=== PATIENT | female | born 1935 | race Two or more races ===

== ENCOUNTER 2017-09-06 13:21 | Inpatient (IN) | payer MEDICARE, OTHER ==
[~2017-09-06] VITALS: Ht 162.6 cm; Wt 60.8 kg
[2017-09-06 13:42] VITALS: BP 116/52
--- NOTE | 2017-09-06 13:57 | Emergency Room Report ---
History of Present Illness General Chief Complaint: Back Pain-No Injury Source: Patient, Family Member Present Illness HPI Patient is an 82-year-old female who presented after increased low back pain. Patient reports having increased back pain for approximately 3 days. The patient had gradual onset. She denies any recent trauma. Patient denies any fever. She reports urinating normally. Patient reports having normal bowel movements. She denies any dysuria or hematuria. She denies any weight loss. She had prior history of arthritis. Allergies: Coded Allergies: No Known Allergies (Verified Allergy, Unknown, 06/18/08) Patient History Past Medical History: see triage record Last Menstrual Period: na Reviewed Nursing Documentation: PMH: Agreed; PSxH: Agreed Nursing Documentation-PMH Past Medical History: No History, Except For Hx Cardiac Problems: Yes - atrial fibrillation Review of Systems All Other Systems: negative except mentioned in HPI Physical Exam Vital Signs Date Time Temp Pulse Resp B/P (MAP) Pulse Ox O2 Delivery O2 Flow Rate FiO2 09/06/17 13:24 98.4 47 18 112/61 98 Room Air 98.4 Sp02 EP Interpretation: reviewed, normal General Appearance: normal inspection, well appearing, no apparent distress, alert, GCS 15 Head: atraumatic ENT: normal ENT inspection, hearing grossly normal, normal voice Neck: normal inspection, full range of motion, supple, no bony tend Respiratory: normal inspection, lungs clear, normal breath sounds, no respiratory distress, no retraction, no wheezing Cardiovascular #1: regular rate, rhythm, no edema Gastrointestinal: normal inspection, normal bowel sounds, non tender, soft, no guarding, no hernia Genitourinary: no CVA tenderness Musculoskeletal: normal inspection, normal range of motion, other - limited ROM Neurologic: normal inspection, alert, oriented x3, responsive, lumber tailer III-XII nml as tested, speech normal Psychiatric: normal inspection, judgement/insight normal, mood/affect normal Skin: normal inspection, normal color, no rash Medical Decision Making Diagnostic Impression: Primary Impression: Atrial fibrillation with rapid ventricular response Additional Impression: T12 compression fracture ER Course Patient presented for back pain. Differential diagnosis included but was not limited to herniated disc, cauda equina syndrome, abdominal aortic aneurysm, perforated ulcer, spinal epidural abscess, spinal stenosis, lumbar fracture, metastatic lesion, pyelonephritis Patient was noted to have evidence of a rapid heartbeat intermittently on cardiac monitoring. Patient states that she previously been taking sotalol for arrhythmia but had her dosage decreased. Dr. Mckee was contacted for inpatient management due to need for inpatient monitoring and treatment. Labs Test 09/06/17 14:00 White Blood Count 6.6 K/UL (4.8-10.8) Red Blood Count 4.69 M/UL (4.20-5.40) Hemoglobin 14.7 G/DL (12.0-16.0) Hematocrit 43.1 % (37.0-47.0) Mean Corpuscular Volume 92 FL (80-99) Mean Corpuscular Hemoglobin 31.4 PG (27.0-31.0) Mean Corpuscular Hemoglobin Concent 34.2 G/DL (32.0-36.0) Red Cell Distribution Width 14.7 % (11.6-14.8) Platelet Count 138 K/UL (150-450) Mean Platelet Volume 8.6 FL (6.5-10.1) Neutrophils (%) (Auto) 63.7 % (45.0-75.0) Lymphocytes (%) (Auto) 26.6 % (20.0-45.0) Monocytes (%) (Auto) 8.1 % (1.0-10.0) Eosinophils (%) (Auto) 1.0 % (0.0-3.0) Basophils (%) (Auto) 0.7 % (0.0-2.0) Urine Color Yellow Urine Appearance Clear Urine pH 5 (4.5-8.0) Urine Specific [place] 1.020 (1.005-1.035) Urine Protein 1+ (NEGATIVE) Urine Glucose (UA) Negative (NEGATIVE) Urine Ketones Negative (NEGATIVE) Urine Occult Blood 4+ (NEGATIVE) Urine Nitrite Negative (NEGATIVE) Urine Bilirubin 1+ (NEGATIVE) Urine Ictotest Negative Urine Urobilinogen 1 MG/DL (0.0-1.0) Urine Leukocyte Esterase 2+ (NEGATIVE) Urine RBC 5-10 /HPF (0 - 2) Urine WBC 2-4 /HPF (0 - 2) Urine Squamous Epithelial Cells Few /LPF (NONE/OCC) Urine Bacteria Few /HPF (NONE) Urine Mucus Few /LPF (NONE/OCC) Sodium Level 142 MMOL/L (136-145) Potassium Level 3.6 MMOL/L (3.5-5.1) Chloride Level 106 MMOL/L (98-107) Carbon Dioxide Level 27 MMOL/L (21-32) Anion Gap 9 mmol/L (5-15) Blood Urea Nitrogen 14 mg/dL (7-18) Creatinine 0.7 MG/DL (0.55-1.30) Estimat Glomerular Filtration Rate mL/min (>60) Glucose Level 144 MG/DL (74-106) Calcium Level 8.9 MG/DL (8.5-10.1) Total Bilirubin 0.9 MG/DL (0.2-1.0) Aspartate Amino Transf (AST/SGOT) 30 U/L (15-37) Alanine Aminotransferase (ALT/SGPT) 13 U/L (12-78) Alkaline Phosphatase 81 U/L (46-116) Troponin I 0.041 ng/mL (0.000-0.056) Total Protein 6.9 G/DL (6.4-8.2) Albumin 3.4 G/DL (3.4-5.0) Globulin 3.5 g/dL Albumin/Globulin Ratio 1.0 (1.0-2.7) Lipase 145 U/L (73-393) EKG Diagnostic Results Rate: tachycardiac Rhythm: other - afib 137 Rhythm Strip Diag. Results EP Interpretation: yes Rhythm: no PVC's, no ectopy Last Vital Signs Date Time Temp Pulse Resp B/P (MAP) Pulse Ox O2 Delivery O2 Flow Rate FiO2 09/06/17 13:42 98.4 57 18 116/52 98 Room Air 98.4 Status: unchanged Disposition: ADMITTED INPATIENT Condition: Serious César Darden Sep 06, 2017 13:57
[2017-09-06] MEDS ORDERED: Morphine Sulfate 2mg/ml Inj IVP ONE (14:00)
[2017-09-06 14:28] LABS: APPEARANCE,URINE CLEAR; BASOPHILS % (AUTO) 0.7 % (0.0-2.0); BILIRUBIN, URINE 1+ (NEGATIVE); COLOR,URINE YELLOW; GLUCOSE, URINE (UA) NEGATIVE (NEGATIVE); HEMATOCRIT 43.1 % (37.0-47.0); HEMOGLOBIN 14.7 G/DL (12.0-16.0); KETONES,URINE NEGATIVE (NEGATIVE); LEUKOCYTE ESTERASE ,URINE 2+ (NEGATIVE); LYMPHOCYTES % (AUTO) 26.6 % (20.0-45.0); MEAN CORPUSCULAR VOLUME 92 FL (80-99); MONOCYTES % (AUTO) 8.1 % (1.0-10.0); NEUTROPHILS % (AUTO) 63.7 % (45.0-75.0); NITRITE,URINE NEGATIVE (NEGATIVE); PH,URINE 5 (4.5-8.0); PLATELET COUNT 138 K/UL (150-450); PROTEIN,URINE 1+ (NEGATIVE); RED BLOOD COUNT 4.69 M/UL (4.20-5.40); RED CELL DISTRIBUTION WIDTH 14.7 % (11.6-14.8); UROBILINOGEN,URINE 1 MG/DL (0.0-1.0); WHITE BLOOD COUNT 6.6 K/UL (4.8-10.8)
[2017-09-06] MEDS ORDERED: LORAZEPAM1 MG ORAL (14:32)
[2017-09-06] MEDS ORDERED: WARFARIN SODIUM5 MG ORAL (14:32)
[2017-09-06] MEDS ORDERED: ZOLPIDEM TARTRA10 MG ORAL (14:32)
[2017-09-06] MEDS ORDERED: PROTONIX40 MG ORAL (14:32)
[2017-09-06 15:03] LABS: ANION GAP 9 mmol/L (5-15); BLOOD UREA NITROGEN 14 mg/dL (7-18); CALCIUM 8.9 MG/DL (8.5-10.1); CARBON DIOXIDE 27 MMOL/L (21-32); CHLORIDE 106 MMOL/L (98-107); CREATININE 0.7 MG/DL (0.55-1.30); POTASSIUM 3.6 MMOL/L (3.5-5.1); SODIUM 142 MMOL/L (136-145)
[2017-09-06 15:07] LABS: ALANINE AMINOTRANSFERASE 13 U/L (12-78); ALBUMIN 3.4 G/DL (3.4-5.0); ALKALINE PHOSPHATASE 81 U/L (46-116); ASPARTATE AMINO TRANSFERASE 30 U/L (15-37); BILIRUBIN,TOTAL 0.9 MG/DL (0.2-1.0)
[2017-09-06] MEDS ORDERED: Ketorolac 30mg Inj IV ONE (15:15)
[2017-09-06 15:36] VITALS: BP 127/52
--- NOTE | 2017-09-06 15:41 | Diagnostic Imaging Report ---
Indications: Increased low back pain for approximately 3 days, gradual onset Technique: Spiral acquisitions obtained through the lumbar spine. Multiplanar reconstructions were generated. No IV contrast utilized. Total dose length product 368.23 mGycm. CTDIvol(s) 13.26 mGy. Dose reduction achieved using automated exposure control Comparison: none Findings: There is a superior endplate and slight upper anterior wall compression fracture deformity of the T12 vertebral body. No definite paraspinous abnormality this level. The remaining vertebral body heights are preserved. No other evidence of fracture. No dislocations. There is grade 1 spondylolisthesis of L5 on S1. However, no pars defect demonstrated, so this is probably due to rather profound facet arthrosis that is noted at this level.. The disc spaces are preserved. Bone on bone apposition of the L3, L4, and L5 spinous process is demonstrated. At L4-5, there is mild generalized circumferential annular bulge. This does not significantly compromise the spinal canal or the neural foramina. At the other levels, no significant disc bulge or protrusion, spinal stenosis, or neural foraminal narrowing. The included extra spinal soft tissues are remarkable for the presence of a large left renal cyst, measuring at least 6 cm in diameter, incompletely visualized. Impression: Positive for T12 superior endplate and slight anterior wall compression fracture deformity. Age indeterminate. 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
[2017-09-06] MEDS ORDERED: Metoprolol 5mg/5ml Inj IVP ONE ×2 (16:00→19:00)
[2017-09-06] MEDS ORDERED: SOTALOL80 M1 ORAL (16:20)
[2017-09-06 16:39] VITALS: BP 120/92
[2017-09-06 19:08] VITALS: BP 104/72
[2017-09-06 20:24] VITALS: BP 107/60
--- NOTE | 2017-09-06 20:25 | Cardiology Progress Note ---
Assessment/Plan Assessment/Plan The patient is seen and examined, full consult note is dictated. Objective Last 24 Hour Vital Signs Date Time Temp Pulse Resp B/P (MAP) Pulse Ox O2 Delivery O2 Flow Rate FiO2 09/06/17 19:13 132 104/72 09/06/17 19:08 98.4 132 17 104/72 98 Room Air 98.4 09/06/17 16:39 98.4 107 17 120/92 98 Room Air 98.4 09/06/17 16:38 98.4 09/06/17 16:03 127 127/52 09/06/17 15:36 98.4 127 23 127/52 98 Room Air 98.4 09/06/17 15:12 98.4 09/06/17 14:54 98.4 09/06/17 14:15 98.4 09/06/17 13:42 98.4 57 18 116/52 98 Room Air 98.4 09/06/17 13:24 98.4 47 18 112/61 98 Room Air 98.4 Laboratory Tests Test 09/06/17 14:00 White Blood Count 6.6 K/UL (4.8-10.8) Red Blood Count 4.69 M/UL (4.20-5.40) Hemoglobin 14.7 G/DL (12.0-16.0) Hematocrit 43.1 % (37.0-47.0) Mean Corpuscular Volume 92 FL (80-99) Mean Corpuscular Hemoglobin 31.4 PG (27.0-31.0) H Mean Corpuscular Hemoglobin Concent 34.2 G/DL (32.0-36.0) Red Cell Distribution Width 14.7 % (11.6-14.8) Platelet Count 138 K/UL (150-450) L Mean Platelet Volume 8.6 FL (6.5-10.1) Neutrophils (%) (Auto) 63.7 % (45.0-75.0) Lymphocytes (%) (Auto) 26.6 % (20.0-45.0) Monocytes (%) (Auto) 8.1 % (1.0-10.0) Eosinophils (%) (Auto) 1.0 % (0.0-3.0) Basophils (%) (Auto) 0.7 % (0.0-2.0) Urine Color Yellow Urine Appearance Clear Urine pH 5 (4.5-8.0) Urine Specific [place] 1.020 (1.005-1.035) Urine Protein 1+ (NEGATIVE) H Urine Glucose (UA) Negative (NEGATIVE) Urine Ketones Negative (NEGATIVE) Urine Occult Blood 4+ (NEGATIVE) H Urine Nitrite Negative (NEGATIVE) Urine Bilirubin 1+ (NEGATIVE) H Urine Ictotest Negative Urine Urobilinogen 1 MG/DL (0.0-1.0) H Urine Leukocyte Esterase 2+ (NEGATIVE) H Urine RBC 5-10 /HPF (0 - 2) H Urine WBC 2-4 /HPF (0 - 2) Urine Squamous Epithelial Cells Few /LPF (NONE/OCC) Urine Bacteria Few /HPF (NONE) Urine Mucus Few /LPF (NONE/OCC) H Sodium Level 142 MMOL/L (136-145) Potassium Level 3.6 MMOL/L (3.5-5.1) Chloride Level 106 MMOL/L (98-107) Carbon Dioxide Level 27 MMOL/L (21-32) Anion Gap 9 mmol/L (5-15) Blood Urea Nitrogen 14 mg/dL (7-18) Creatinine 0.7 MG/DL (0.55-1.30) Estimat Glomerular Filtration Rate mL/min (>60) Glucose Level 144 MG/DL (74-106) H Calcium Level 8.9 MG/DL (8.5-10.1) Total Bilirubin 0.9 MG/DL (0.2-1.0) Aspartate Amino Transf (AST/SGOT) 30 U/L (15-37) Alanine Aminotransferase (ALT/SGPT) 13 U/L (12-78) Alkaline Phosphatase 81 U/L (46-116) Troponin I 0.041 ng/mL (0.000-0.056) Total Protein 6.9 G/DL (6.4-8.2) Albumin 3.4 G/DL (3.4-5.0) Globulin 3.5 g/dL Albumin/Globulin Ratio 1.0 (1.0-2.7) Lipase 145 U/L (73-393) BRENDEN JARAMILLO Sep 06, 2017 20:25
[2017-09-06 20:30] VITALS: BP 111/67
[2017-09-06] MEDS ORDERED: VITAMIN D400 INTLU ORAL (20:41)
[2017-09-06] MEDS ORDERED: Morphine Sulfate 2mg/ml Inj IVP PRN (21:15)
[2017-09-06] MEDS ORDERED: D5W IV SCH (22:30)
[2017-09-06] MEDS ORDERED: AMIODARONE IV SCH (22:30)
[2017-09-06] MEDS: Metoprolol 25mg tab ORAL SCH (22:36)
[2017-09-07] VITALS: BP 102/55
[2017-09-07 04:00] VITALS: BP 105/48
[2017-09-07 07:08] LABS: EOSINOPHILS % (AUTO) 1.3 % (0.0-3.0); HEMATOCRIT 41.5 % (37.0-47.0); HEMOGLOBIN 14.3 G/DL (12.0-16.0); LYMPHOCYTES % (AUTO) 24.7 % (20.0-45.0); MEAN CORPUSCULAR VOLUME 93 FL (80-99); PLATELET COUNT 122 K/UL (150-450); RED BLOOD COUNT 4.46 M/UL (4.20-5.40); RED CELL DISTRIBUTION WIDTH 14.7 % (11.6-14.8); WHITE BLOOD COUNT 6.3 K/UL (4.8-10.8)
[2017-09-07 07:25] LABS: ALANINE AMINOTRANSFERASE 16 U/L (12-78); ALBUMIN/GLOBULIN RATIO 0.9 (1.0-2.7); ALKALINE PHOSPHATASE 74 U/L (46-116); ANION GAP 7 mmol/L (5-15); ASPARTATE AMINO TRANSFERASE 29 U/L (15-37); BILIRUBIN,TOTAL 0.9 MG/DL (0.2-1.0); BLOOD UREA NITROGEN 20 mg/dL (7-18); CALCIUM 8.7 MG/DL (8.5-10.1); CARBON DIOXIDE 29 MMOL/L (21-32); CHLORIDE 107 MMOL/L (98-107); CHOLESTEROL 157 MG/DL (< 200); CREATININE 0.8 MG/DL (0.55-1.30); HDL CHOLESTEROL 48 MG/DL (40-60); POTASSIUM 4.2 MMOL/L (3.5-5.1); SODIUM 142 MMOL/L (136-145); TRIGLYCERIDES 66 MG/DL (30-150)
[2017-09-07 07:28] LABS: INR 1.3 (0.9-1.1)
[2017-09-07 08:00] VITALS: BP 122/47
--- NOTE | 2017-09-07 08:52 | History & Physical ---
History and Physical History & Physicial seen and examined. dictation completed Roderick Mckee MD Sep 07, 2017 08:52
--- NOTE | 2017-09-07 08:54 | General Progress Note ---
Assessment/Plan Status: stable Assessment/Plan 1- T-Spine compression deformity fx 2- pain management 3- abn BNP 4- Afib Plan: T-Spine MRI echo [place] PRN Subjective ROS Limited/Unobtainable: No Constitutional: Reports: other - painful back Allergies: Coded Allergies: No Known Allergies (Verified Allergy, Unknown, 06/18/08) Objective Last 24 Hour Vital Signs Date Time Temp Pulse Resp B/P (MAP) Pulse Ox O2 Delivery O2 Flow Rate FiO2 09/07/17 04:00 65 09/07/17 04:00 98.1 58 20 105/48 94 Room Air 98.1 09/07/17 00:00 57 09/07/17 00:00 97.7 60 20 102/55 95 Room Air 97.7 09/06/17 22:36 62 112/52 09/06/17 22:29 63 09/06/17 20:34 133 09/06/17 20:30 98.0 111 20 111/67 94 Room Air 98.0 09/06/17 20:24 98.4 133 17 107/60 98 Room Air 98.4 09/06/17 20:15 98.4 132 17 104/72 98 Room Air 98.4 09/06/17 19:13 132 104/72 09/06/17 19:08 98.4 132 17 104/72 98 Room Air 98.4 09/06/17 16:39 98.4 107 17 120/92 98 Room Air 98.4 09/06/17 16:38 98.4 09/06/17 16:03 127 127/52 09/06/17 15:36 98.4 127 23 127/52 98 Room Air 98.4 09/06/17 15:12 98.4 09/06/17 14:54 98.4 09/06/17 14:15 98.4 09/06/17 13:42 98.4 57 18 116/52 98 Room Air 98.4 09/06/17 13:24 98.4 47 18 112/61 98 Room Air 98.4 Laboratory Tests 09/06/17 14:00: White Blood Count 6.6, Red Blood Count 4.69, Hemoglobin 14.7, Hematocrit 43.1, Mean Corpuscular Volume 92, Mean Corpuscular Hemoglobin 31.4H, Mean Corpuscular Hemoglobin Concent 34.2, Red Cell Distribution Width 14.7, Platelet Count 138L, Mean Platelet Volume 8.6, Neutrophils (%) (Auto) 63.7, Lymphocytes (%) (Auto) 26.6, Monocytes (%) (Auto) 8.1, Eosinophils (%) (Auto) 1.0, Basophils (%) (Auto ) 0.7, Urine Color Yellow, Urine Appearance Clear, Urine pH 5, Urine Specific [place] 1.020, Urine Protein 1+H, Urine Glucose (UA) Negative, Urine Ketones Negative, Urine Occult Blood 4+H, Urine Nitrite Negative, Urine Bilirubin 1+H, Urine Ictotest Negative, Urine Urobilinogen 1H, Urine Leukocyte Esterase 2+H, Urine RBC 5-10H, Urine WBC 2-4, Urine Squamous Epithelial Cells Few, Urine Bacteria Few, Urine Mucus FewH, Sodium Level 142, Potassium Level 3.6, Chloride Level 106, Carbon Dioxide Level 27, Anion Gap 9, Blood Urea Nitrogen 14, Creatinine 0.7, Estimat Glomerular Filtration Rate , Glucose Level 144H, Calcium Level 8.9, Total Bilirubin 0.9, Aspartate Amino Transf (AST/SGOT) 30, Alanine Aminotransferase (ALT/SGPT) 13, Alkaline Phosphatase 81, Troponin I 0.041, Total Protein 6.9, Albumin 3.4, Globulin 3.5, Albumin/Globulin Ratio 1.0 , Lipase 145 09/06/17 22:00: Troponin I 0.049 09/07/17 06:30: White Blood Count 6.3, Red Blood Count 4.46, Hemoglobin 14.3, Hematocrit 41.5, Mean Corpuscular Volume 93, Mean Corpuscular Hemoglobin 32.1H, Mean Corpuscular Hemoglobin Concent 34.5, Red Cell Distribution Width 14.7, Platelet Count 122L, Mean Platelet Volume 8.3, Neutrophils (%) (Auto) 64.0, Lymphocytes (%) (Auto) 24.7, Monocytes (%) (Auto) 9.0, Eosinophils (%) (Auto) 1.3, Basophils (%) (Auto ) 1.0, Sodium Level 142, Potassium Level 4.2, Chloride Level 107, Carbon Dioxide Level 29, Anion Gap 7, Blood Urea Nitrogen 20H, Creatinine 0.8, Estimat Glomerular Filtration Rate , Glucose Level 96, Calcium Level 8.7, Total Bilirubin 0.9, Aspartate Amino Transf (AST/SGOT) 29, Alanine Aminotransferase ( ALT/SGPT) 16, Alkaline Phosphatase 74, Troponin I 0.041, Total Protein 6.5, Albumin 3.0L, Globulin 3.5, Albumin/Globulin Ratio 0.9L, Prothrombin Time 13.9H , Prothromb Time International Ratio 1.3H, Hemoglobin A1c 6.2H, Pro-B-Type Natriuretic Peptide 1566H, Triglycerides Level 66, Cholesterol Level 157, LDL Cholesterol 104H, HDL Cholesterol 48, Cholesterol/HDL Ratio 3.3, Thyroid Stimulating Hormone (TSH) 2.250 Height (Feet): 5 Height (Inches): 4.00 Weight (Pounds): 134 General Appearance: moderate distress EENT: PERRL/EOMI Neck: supple Cardiovascular: normal rate Respiratory/Chest: lungs clear Abdomen: soft Extremities: other - decreased ROM of spine secondary to pain 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
[2017-09-07] MEDS ORDERED: Morphine Sulfate 4mg/ml Inj IM PRN (09:00)
[2017-09-07] MEDS ORDERED: Morphine Sulfate 2mg/ml Inj IM PRN (09:00)
[2017-09-07] MEDS ORDERED: Morphine Sulfate 2mg/ml Inj IVP PRN (09:00)
[2017-09-07] MEDS: Metoprolol 25mg tab ORAL SCH ×2 (09:22→21:27)
[2017-09-07] MEDS: Dabigatran 150mg cap ORAL SCH ×2 (10:33→21:28)
[2017-09-07 12:00] VITALS: BP 105/50
[2017-09-07] MEDS: Amiodarone 200mg tab ORAL SCH ×2 (13:30→21:32)
[2017-09-07] MEDS: Norco 5mg/325mg tab ORAL PRN ×2 (13:47→21:31)
--- NOTE | 2017-09-07 15:59 | Cardiology Report ---
APPROVED REPORT EXAM: Two-dimensional and M-mode echocardiogram with Doppler and color Doppler. INDICATION Atrial Fibrillation M-Mode DIMENSIONS IVSd1.0 (0.7-1.1cm)Left Atrium (MM)3.8 (1.6-4.0cm) LVDd4.7 (3.5-5.6cm)Aortic Root3.4 (2.0-3.7cm) PWd1.1 (0.7-1.1cm)Aortic Cusp Exc.1.8 (1.5-2.0cm) LVDs2.8 (2.5-4.0cm) PWs1.9 cm Normal left ventricular chamber size, systolic function and wall motion. Left ventricular ejection fraction estimated to be 60-65%. No evidence of left ventricular hypertrophy. No evidence of pericardial effusion. Mild left atrial enlargement. Right cardiac chamber sizes are within normal limits. Mild focal aortic valve sclerosis with adequate cusp excursion. Mildly thickened mitral valve leaflets with normal excursion. Mild mitral annulus and aortic root calcification. Normal pulmonic valve structure. Normal tricuspid valve structure. IVC at normal size and collapsing with respiration. A color flow and spectral Doppler study was performed and revealed: Trace aortic insufficiency. Mild mitral regurgitation. Can not determine left ventricular diastolic function by mitral diastolic velocities due to atrial fibrillation. Mild tricuspid regurgitation. Tricuspid systolic velocities suggests peak right ventricular systolic pressure of 40 mmHg, consistent with mild pulmonary hypertension. Mild pulmonic regurgitation present.
[2017-09-07 16:00] VITALS: BP 120/64
--- NOTE | 2017-09-07 16:11 | Cardiology Report ---
APPROVED REPORT EKG Measurement Heart [id number] AAnnette Monk with rapid ventricular response. Low voltage QRS Abnormal ECG
--- NOTE | 2017-09-07 16:59 | Diagnostic Imaging Report ---
Indication: Back pain Technique: Sagittal T1 fast spin echo, sagittal T2 FRFSE, sagittal STIR, axial T2 FRFSE, axial T1, pre and postcontrast axial and sagittal T1 fat saturated images of the thoracic spine Comparison: Reference made to lumbar spine CT dated 09/06/2017 Findings: The T10 vertebral body demonstrates very slight loss of height anterior plate, and slight buckling of the anterior cortex. It demonstrates superior marrow edema on the T1 and STIR images. It also demonstrates enhancement of the upper portion of the vertebral body in the same distribution on the postcontrast images. Abnormal marrow signal and enhancement extends slightly into the left pedicle but not into the right pedicle. The posterior wall appears to be intact without evidence of significant retropulsion. There is some edema and enhancement of the paraspinous soft tissues anterior and lateral to the vertebral body. There is no epidural abnormality demonstrated at this level, and no epidural enhancement. No significant disc bulge or protrusion or spinal stenosis. Focal very mild thickening of the ligamentum flavum on the left posterior to T9 is noted, but this does not in any way compromise the spinal canal. There is slight increased T2 signal within the T9-T10 disc, but no significant disc enhancement is evident. Very slight anterior height loss and buckling of the superior endplate of the T12 vertebral body is demonstrated, corresponding to the compression fracture deformity described on recent MRI. However, no abnormal marrow signal or unusual contrast enhancement is demonstrated, indicating that this is not an acute fracture. The remaining vertebral body heights are preserved. The remainder of the vertebral body marrow signal is normal. The intrinsic cord signal is normal. The disc spaces are preserved. No significant disc bulge or protrusion, spinal stenosis, or neural foraminal stenosis. Impression: Positive for acute T10 compression fracture, primarily involving the superior endplate with slight anterior wall deformity. No evidence of retropulsion or resultant neural impingement T12 compression fracture deformity, old, no evidence of marrow edema. This corresponds to the abnormality described on recent CT scan No evidence of spondylodiscitis, epidural abscess, or other acute infectious abnormality. No evidence of significant neural impingement Findings discussed by phone with Dr. Mckee at the time of interpretation
[2017-09-07] MEDS ORDERED: Warfarin Sodium 5mg ORAL SCH (17:00)
--- NOTE | 2017-09-07 17:00 | History and Physical Report ---
DATE OF ADMISSION: 09/06/2017 SOURCE OF INFORMATION: Patient and EMR. HISTORY OF PRESENT ILLNESS: The patient is a pleasant 82-year-old female. She is complaining of the acute onset of the lower back pain for the last couple of days. The patient denies any sensory or motor problems in the lower extremities. The patient denies any loss of consciousness. No nausea. No vomitus. No diarrhea. No constipation. The patient's initial evaluation in the emergency room shows the vital signs were stable. The initial blood work are unremarkable. The initial CT scan of the spine shows compression deformity fractures of T12. At the time of evaluation, the patient complains of severe pain. The patient denies any problem with the bladder or bowel control. PAST SURGICAL HISTORY: Hysterectomy and appendectomy/cholecystectomy. MEDICATIONS: Current hospital medications including but not limited to, amiodarone, metoprolol 25 mg p.o. q.12 hours, and morphine sulfate. ALLERGIES: NKDA. FAMILY HISTORY: Reviewed and noncontributory. SOCIAL HISTORY: The patient lives by herself with the boyfriend. The patient denies any alcohol abuse, drinking, or illicit drug abuse. No children. PHYSICAL EXAMINATION: VITAL SIGNS: Blood pressure 110/80, temperature 98.2, pulse ox 98% on room air, and pulse rate 45 to 50. HEAD AND NECK: Atraumatic and normocephalic. CHEST: Clear to auscultation. No wheezing. No crackles. HEART: S1 and S2. Irregular rate and rhythm. Negative for S3. Negative for S4. ABDOMEN: Soft. No organomegaly. No tenderness. NEUROLOGIC: The patient is awake, alert, and oriented x3. No cranial nerve deficit. MUSCULOSKELETAL: Positive for decreased range of motion in the back secondary to pain. PSYCHIATRIC: Mood and affect are appropriate and normal. LABORATORY DATA: Labs dated 09/06/2017 shows sodium 142, potassium 3.6, BUN 14, and creatinine 0.7. WBC 6.6, hemoglobin of 14.7, and platelets of 138,000. Urinalysis shows 10 rbc's, 4+ occult blood, and 4+ protein. ASSESSMENT: 1. Acute onset of low back pain. 2. Compression deformity fractures of T12, age indeterminate with no neurologic compromise by CT scan images. 3. Minimal proteinuria. 4. Dysmetabolic syndrome. 5. Atrial fibrillation, controlled rate. 6. Gastrointestinal and deep vein thrombosis prophylaxis. PLAN OF CARE: I will obtain the MRI of the thoracic spine to rule out any possible neurologic compromise. Continue with pain management. We will check a 2D echo. Roderick Mckee M.D. DR: MOISES JOB#: [id number] CC:
--- NOTE | 2017-09-07 18:30 | Consultation ---
DATE OF CONSULTATION: 09/06/2017 CARDIOLOGY CONSULTATION CONSULTING PHYSICIAN: Haim Tobin M.D. REFERRING PHYSICIAN: Roderick Mckee M.D. REASON FOR CONSULTATION: Management of atrial fibrillation with rapid ventricular response. HISTORY OF PRESENT ILLNESS: The patient is a very unfortunate, 82-year-old, very delightful female, who presented to the hospital with increased low back pain. This has been going on for about three days. It was a gradual onset. In the emergency department, while being evaluated for low back pain etiology, she was found to be in atrial fibrillation with rapid ventricular response. Apparently, this is a paroxysmal atrial fibrillation. The patient has been on sotalol and warfarin. She states that she is managed by her primary care physician for paroxysmal atrial fibrillation. She was given a medication by a cruise coordinator one time, but she could not tolerate that. She denies any palpitation, however, complains of fatigue and weakness and tiredness. PAST MEDICAL HISTORY: Paroxysmal atrial fibrillation. PAST SURGICAL HISTORY: None. MEDICATIONS: List of medications at home including sotalol 80 mg p.o. daily, vitamin D3 400 units p.o. daily, and warfarin 5 mg p.o. daily. ALLERGIES: No known drug allergies. SOCIAL HISTORY: Denies any tobacco, alcohol, or illicit drug use. FAMILY HISTORY: No premature coronary artery disease in first-degree relatives. There is no arrhythmogenic in the first-degree relative either. REVIEW OF SYSTEMS: A 12-system review done essentially negative except what mentioned in the history of present illness. PHYSICAL EXAMINATION: GENERAL: The patient is a very pleasant, 82-year-old lady, in no apparent respiratory distress. Alert and oriented x4. VITAL SIGNS: Blood pressure at the time of arrival to the hospital was 112/61, respirations 18, heart rate was as high as 137, temperature 98.4 degrees Fahrenheit, and O2 saturation was 98% on room air. HEENT: Atraumatic and normocephalic. ENT, pupils are equal, round, and reactive to light and accommodation. Extraocular muscles intact. NECK: JVP less than 5 cm. No carotid bruit. Carotid upstroke is 2+ bilaterally. CARDIOVASCULAR: Normal S1 and S2. Irregularly irregular rhythm. No murmurs, gallops, or rubs. PMI is at fourth intercostal space in the midclavicular line. LUNGS: Clear to auscultation bilaterally. ABDOMEN: Soft, nontender, and nondistended. No hepatosplenomegaly. Positive bowel sounds. EXTREMITIES: No evidence of edema, clubbing, or cyanosis. LABORATORY FINDINGS: WBC 6.6, hemoglobin of 14.7, hematocrit of 43.1 and platelet count is 138. Sodium was 142, potassium is 3.6, chloride 106, bicarbonate 27, BUN of 14, creatinine 0.7, glucose is 144, and calcium is 8.9. Troponin I was 0.041. A 12-lead electrocardiogram showed atrial fibrillation with rapid ventricular response at a rate of 137. ASSESSMENT AND PLAN: The patient is a very unfortunate, 82-year-old female, seen in Cardiology consultation at request of Dr. Mckee. 1. Atrial fibrillation with rapid ventricular response, failed sotalol for maintaining the sinus rhythm, although she is on a relatively low dose of sotalol. I would like to start the patient on amiodarone 150 mg IV push over 15 minutes followed by amiodarone IV infusion at 1 mg/minute for 6 hours followed by 0.5 mg/minute for the rest of 18 hours. We will then switch to amiodarone 200 mg p.o. daily. In the meantime, we will discontinue metoprolol. The patient will ultimately benefit from novel oral anticoagulation therapy. I would like to obtain INR and PT to see the compliance with warfarin. 2. Low back pain. I would like to obtain 2D echocardiography for assessment of the left atrial size and LV function as well. I would like to thank Dr. Mckee for the courtesy of this consultation. Haim Tobin M.D. DR: ILANA JOB#: [id number] CC:
[2017-09-07 20:00] VITALS: BP 125/61
[2017-09-08] VITALS: BP 131/71
[2017-09-08 04:00] VITALS: BP 110/51
[2017-09-08] MEDS: Amiodarone 200mg tab ORAL SCH ×4 (06:00→22:08)
[2017-09-08 08:00] VITALS: BP 123/76
[2017-09-08 08:45] LABS: BASOPHILS % (AUTO) 1.7 % (0.0-2.0); EOSINOPHILS % (AUTO) 1.5 % (0.0-3.0); HEMATOCRIT 38.4 % (37.0-47.0); HEMOGLOBIN 13.3 G/DL (12.0-16.0); LYMPHOCYTES % (AUTO) 25.7 % (20.0-45.0); MEAN CORPUSCULAR VOLUME 92 FL (80-99); MONOCYTES % (AUTO) 7.8 % (1.0-10.0); NEUTROPHILS % (AUTO) 63.3 % (45.0-75.0); PLATELET COUNT 114 K/UL (150-450); RED BLOOD COUNT 4.15 M/UL (4.20-5.40); RED CELL DISTRIBUTION WIDTH 14.6 % (11.6-14.8); WHITE BLOOD COUNT 5.4 K/UL (4.8-10.8)
[2017-09-08 08:59] LABS: INR 1.5 (0.9-1.1)
[2017-09-08] MEDS ORDERED: Amiodarone 200mg tab ORAL SCH (09:00)
[2017-09-08] MEDS: Dabigatran 150mg cap ORAL SCH (09:03)
[2017-09-08 12:00] VITALS: BP 126/70
--- NOTE | 2017-09-08 13:02 | General Progress Note ---
Assessment/Plan Status: stable Assessment/Plan 1. Acute onset of low back pain. 2. Acute Compression deformity fractures of T10- No neurologic compromise by CT scan images. 3. Minimal proteinuria. 4. Dysmetabolic syndrome. 5. Atrial fibrillation, controlled rate. 6. Gastrointestinal and deep vein thrombosis prophylaxis. Plan: Kyphoplasty by IR on Tuesday Stop NOAC- Pradaxa- tomorrow Subjective ROS Limited/Unobtainable: No Constitutional: Reports: weakness HEENT: Reports: no symptoms Cardiovascular: Reports: no symptoms Respiratory: Reports: no symptoms Allergies: Coded Allergies: No Known Allergies (Verified Allergy, Unknown, 06/18/08) Objective Last 24 Hour Vital Signs Date Time Temp Pulse Resp B/P (MAP) Pulse Ox O2 Delivery O2 Flow Rate FiO2 09/08/17 08:00 97.2 56 18 123/76 94 Room Air 97.2 09/08/17 08:00 65 09/08/17 04:00 97.0 59 20 110/51 96 Room Air 97.0 09/08/17 04:00 53 09/08/17 00:00 60 09/08/17 00:00 97.3 63 20 131/71 96 Room Air 97.3 09/07/17 21:27 65 124/62 09/07/17 20:00 77 09/07/17 20:00 97.2 60 20 125/61 95 Room Air 97.2 09/07/17 16:00 97.2 60 18 120/64 95 Room Air 97.2 09/07/17 16:00 62 09/07/17 14:45 97.0 09/07/17 13:47 97.0 Intake and Output 09/07/17 09/08/17 19:00 07:00 Intake Total 360 ml Balance 360 ml Intake Oral 360 ml # Voids 2 2 Laboratory Tests 09/07/17 15:55: Troponin I 0.042 09/08/17 07:30: White Blood Count 5.4, Red Blood Count 4.15L, Hemoglobin 13.3, Hematocrit 38.4, Mean Corpuscular Volume 92, Mean Corpuscular Hemoglobin 32.0H, Mean Corpuscular Hemoglobin Concent 34.7, Red Cell Distribution Width 14.6, Platelet Count 114L, Mean Platelet Volume 7.9, Neutrophils (%) (Auto) 63.3, Lymphocytes (%) (Auto) 25.7, Monocytes (%) (Auto) 7.8, Eosinophils (%) (Auto) 1.5, Basophils (%) (Auto ) 1.7, Prothrombin Time 15.6H, Prothromb Time International Ratio 1.5H, Activated Partial Thromboplast Time 51H Height (Feet): 5 Height (Inches): 4.00 Weight (Pounds): 134 General Appearance: no apparent distress EENT: PERRL/EOMI Neck: supple Cardiovascular: normal rate Respiratory/Chest: lungs clear Abdomen: soft Extremities: other - painful spine with activitiy 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
[2017-09-08] MEDS: Norco 5mg/325mg tab ORAL PRN ×2 (14:01→19:51)
[2017-09-08 16:00] VITALS: BP 143/87
--- NOTE | 2017-09-08 16:48 | General Progress Note ---
Progress Note Progress Note Patient is an 82-year-old female who reports recent history of onset low back pain, not precipitated by any trauma. Patient had similar prior episodes, but current episode much more severe. Patient reports pain as 10 out of 10, limits moving in bed. Patient is still able to ambulate. Patient describes pain as being central within the back, no radicular symptoms. Patient underwent lumbar spine CT scan on 09/06/2017 which demonstrate an age indeterminate T12 compression fracture. Patient underwent thoracic spine CT on , which demonstrated that the T12 compression fracture is old. However, an acute superior endplate compression fracture of T10 is noted on that study. On exam, patient does demonstrate point tenderness in the lower thoracic spine. Normal lower extremity motor and sensory noted Past medical history is remarkable for history of atrial fibrillation. Past surgical history is remarkable history of hysterectomy and appendectomy and cholecystectomy No known allergies Laboratory findings as follows: WBC 5.4, H/HH 13.3 and 38.4, platelet count 114 , prothrombin time 15.6, INR 1.5, PTT 51 Patient appears to be a good candidate for percutaneous kyphoplasty at the T10 level. The procedure was discussed with the patient's, as well as alternatives and benefits. Risks, including but not limited to hemorrhage, infection, nerve damage, spinal cord injury, anesthesia complications discussed with patient, all questions answered. She indicated willingness to proceed Patient is on Pradaxa. This should be discontinued for 3 to 5 days prior to the procedure. This was discussed by phone with Dr. Tobin. Patient will be scheduled for percutaneous kyphoplasty on Tuesday DAVID VILLARREAL M.D. Sep 08, 2017 16:48
[2017-09-08 20:00] VITALS: BP 136/76
--- NOTE | 2017-09-08 22:50 | Cardiology Progress Note ---
Assessment/Plan Assessment/Plan 1. Atrial fibrillation with rapid ventricular response, now in sinus rhythm, failed sotalol for maintaining the sinus rhythm, on PO loading dose of amiodarone until Tuesday, off Pradaxa in preparation for Kyphoplasty. Will then switch to amiodarone 200 mg p.o. daily on Tuesday. 2D echo reveals normal LV systolic function with LVEF at 60%. 2. Low back pain, awaiting kyphoplasty, should be off pradaxa for 3 days prior to the surgery. Subjective Subjective Sinus bradycardia at 59 with occasional VPCs. Objective Last 24 Hour Vital Signs Date Time Temp Pulse Resp B/P (MAP) Pulse Ox O2 Delivery O2 Flow Rate FiO2 09/08/17 20:00 68 09/08/17 20:00 98.2 53 20 136/76 97 Room Air 98.2 09/08/17 16:00 60 09/08/17 16:00 98.2 56 18 143/87 95 Room Air 98.2 09/08/17 12:00 97.5 55 18 126/70 95 Room Air 97.5 09/08/17 12:00 58 09/08/17 08:00 97.2 56 18 123/76 94 Room Air 97.2 09/08/17 08:00 65 09/08/17 04:00 97.0 59 20 110/51 96 Room Air 97.0 09/08/17 04:00 53 09/08/17 00:00 60 09/08/17 00:00 97.3 63 20 131/71 96 Room Air 97.3 Intake and Output 09/07/17 09/08/17 19:00 07:00 Intake Total 360 ml Balance 360 ml Intake Oral 360 ml # Voids 2 2 2D Echo: EF 60%, Mild LAE, Mild MR, Mild FL, RVSP 40 mmHg Laboratory Tests Test 09/08/17 07:30 White Blood Count 5.4 K/UL (4.8-10.8) Red Blood Count 4.15 M/UL (4.20-5.40) L Hemoglobin 13.3 G/DL (12.0-16.0) Hematocrit 38.4 % (37.0-47.0) Mean Corpuscular Volume 92 FL (80-99) Mean Corpuscular Hemoglobin 32.0 PG (27.0-31.0) H Mean Corpuscular Hemoglobin Concent 34.7 G/DL (32.0-36.0) Red Cell Distribution Width 14.6 % (11.6-14.8) Platelet Count 114 K/UL (150-450) L Mean Platelet Volume 7.9 FL (6.5-10.1) Neutrophils (%) (Auto) 63.3 % (45.0-75.0) Lymphocytes (%) (Auto) 25.7 % (20.0-45.0) Monocytes (%) (Auto) 7.8 % (1.0-10.0) Eosinophils (%) (Auto) 1.5 % (0.0-3.0) Basophils (%) (Auto) 1.7 % (0.0-2.0) Prothrombin Time 15.6 SEC (9.30-11.50) H Prothromb Time International Ratio 1.5 (0.9-1.1) H Activated Partial Thromboplast Time 51 SEC (23-33) H Objective HEENT: Atraumatic and normocephalic. ENT, pupils are equal, round, and reactive to light and accommodation. Extraocular muscles intact. NECK: JVP less than 5 cm. No carotid bruit. Carotid upstroke is 2+ bilaterally. CARDIOVASCULAR: Normal S1 and S2. Irregularly irregular rhythm. No murmurs, gallops, or rubs. PMI is at fourth intercostal space in the midclavicular line. LUNGS: Clear to auscultation bilaterally. ABDOMEN: Soft, nontender, and nondistended. No hepatosplenomegaly. Positive bowel sounds. EXTREMITIES: No evidence of edema, clubbing, or cyanosis. BRENDEN JARAMILLO Sep 08, 2017 22:50
[2017-09-09] VITALS: BP 117/54
[2017-09-09 04:00] VITALS: BP 124/87
[2017-09-09] MEDS: Amiodarone 200mg tab ORAL SCH ×3 (05:30→22:58)
[2017-09-09] MEDS ORDERED: Metoprolol 5mg/5ml Inj IVP SCH (07:30)
[2017-09-09 08:00] VITALS: BP 124/72
[2017-09-09] MEDS: Metoprolol 25mg tab ORAL SCH ×2 (09:12→20:39)
[2017-09-09] MEDS: Norco 5mg/325mg tab ORAL PRN ×2 (10:58→22:08)
[2017-09-09 12:00] VITALS: BP 99/63
[2017-09-09] MEDS: Bisacodyl EC 5mg tab ORAL PRN (13:42)
--- NOTE | 2017-09-09 15:47 | Internal Med Progress Note ---
Subjective Date of Service: Sep 09, 2017 Physician Name Scotty Monroy Attending Physician Roderick Mckee MD Current Medications Medications (Trade) Dose Ordered Sig/Radha Route PRN Reason Start Time Stop Time Status Last Admin Dose Admin Acetaminophen/ Hydrocodone Bitart (Walker 5/325) 1 tab Q4H PRN ORAL Moderate Pain (Pain Scale 4-6) 09/07/17 09:00 09/14/17 08:59 09/09/17 10:58 Amiodarone HCl (Cordarone) 400 mg EVERY 8 HOURS ORAL 09/07/17 14:00 09/10/17 06:01 09/09/17 13:42 Bisacodyl (Dulcolax) 5 mg DAILYPRN PRN ORAL Constipation 09/09/17 12:30 10/09/17 12:29 09/09/17 13:42 Docusate Sodium (Colace) 100 mg TWICE A DAY ORAL 09/09/17 18:00 10/09/17 17:59 Metoprolol Tartrate (Lopressor) 5 mg Q5MIN X 3 IVP 09/09/17 07:30 10/09/17 07:29 Metoprolol Tartrate (Lopressor) 25 mg Q12HR ORAL 09/09/17 09:00 10/09/17 08:59 09/09/17 09:12 Morphine Sulfate (Morphine Sulfate) 2 mg Q4H PRN IM Severe Pain (Pain Scale 7-10) 09/07/17 09:00 09/14/17 08:59 Ondansetron HCl (Zofran) 4 mg Q6H PRN IVP Nausea & Vomiting 09/06/17 22:30 10/06/17 22:29 Allergies: Coded Allergies: No Known Allergies (Verified Allergy, Unknown, 06/18/08) ROS Limited/Unobtainable: No Constitutional: Reports: no symptoms HEENT: Reports: no symptoms Cardiovascular: Reports: no symptoms Respiratory: Reports: no symptoms Gastrointestinal/Abdominal: Reports: no symptoms Genitourinary: Reports: no symptoms Neurologic/Psychiatric: Reports: no symptoms Subjective 82 YO F admitted with back pain. Now acute fracture thoracic 10 vertabra. Await Kyphoplasty T-10 on Tuesday09/12/17. Cover for Int Med-Dr Mckee Objective Last Vital Signs Date Time Temp Pulse Resp B/P (MAP) Pulse Ox O2 Delivery O2 Flow Rate FiO2 09/09/17 12:00 70 09/09/17 12:00 98.2 20 99/63 96 Room Air 98.2 General Appearance: WD/WN, no apparent distress, alert EENT: PERRL/EOMI, normal ENT inspection, TMs normal Neck: non-tender, normal alignment, supple Cardiovascular: normal peripheral pulses, normal rate, regular rhythm, no gallop/murmur, no JVD Respiratory/Chest: chest wall non-tender, lungs clear, normal breath sounds, no respiratory distress, no accessory muscle use Abdomen: normal bowel sounds, non tender, soft, no organomegaly, no mass Extremities: normal range of motion, non-tender 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 (2) HTN (hypertension) Assessment & Plan: Continue Metoprolol (3) T12 compression fracture (4) Atrial fibrillation with rapid ventricular response Assessment & Plan: Continue amiodarone-see cardiology note. (5) Back pain (6) Wedge compression fracture of T10 vertebra Assessment & Plan: Acute. Await T-10 kyphoplasty Status: stable KARISHMASCOTTY Sep 09, 2017 15:46
[2017-09-09 16:00] VITALS: BP 124/49
[2017-09-09] MEDS: Docusate 100mg cap ORAL SCH (17:09)
[2017-09-09 20:00] VITALS: BP 148/59
--- NOTE | 2017-09-09 22:33 | Cardiology Progress Note ---
Assessment/Plan Assessment/Plan 1. PAF, now in sinus rhythm, on PO loading dose of amiodarone until Tuesday, off Pradaxa in preparation for Kyphoplasty. Additional metoprolol given to keep in SR, 2D echo reveals normal LV systolic function with LVEF at 60%. 2. Low back pain, awaiting kyphoplasty, should be off pradaxa for 3 days prior to the surgery. Subjective Subjective Sinus rhythm at 80. Had a short run of atrial fib with RVR [id number]. Metoprolol 5mg IVP given followed by PO metoprolol. Objective Last 24 Hour Vital Signs Date Time Temp Pulse Resp B/P (MAP) Pulse Ox O2 Delivery O2 Flow Rate FiO2 09/09/17 22:08 97.7 09/09/17 20:39 61 148/59 09/09/17 16:00 97.7 80 20 124/49 95 Room Air 97.7 09/09/17 16:00 63 09/09/17 12:00 70 09/09/17 12:00 98.2 77 20 99/63 96 Room Air 98.2 09/09/17 09:12 110 124/72 09/09/17 08:00 132 09/09/17 08:00 98.6 110 20 124/72 95 Room Air 98.6 09/09/17 04:00 98 09/09/17 04:00 98.1 102 20 124/87 94 Room Air 98.1 09/09/17 00:00 53 09/09/17 00:00 97.5 56 20 117/54 95 Room Air 97.5 Intake and Output 09/08/17 09/09/17 19:00 07:00 Intake Total 600 ml 600 ml Balance 600 ml 600 ml Intake Oral 600 ml 600 ml # Voids 2 2 2D Echo: EF 60%, Mild LAE, Mild MR, Mild NM, RVSP 40 mmHg Objective HEENT: Atraumatic and normocephalic. ENT, pupils are equal, round, and reactive to light and accommodation. Extraocular muscles intact. NECK: JVP less than 5 cm. No carotid bruit. Carotid upstroke is 2+ bilaterally. CARDIOVASCULAR: Normal S1 and S2. Regular rate rhythm. No murmurs, gallops, or rubs. PMI is at fourth intercostal space in the midclavicular line. LUNGS: Clear to auscultation bilaterally. ABDOMEN: Soft, nontender, and nondistended. No hepatosplenomegaly. Positive bowel sounds. EXTREMITIES: No evidence of edema, clubbing, or cyanosis. BRENDEN JARAMILLO Sep 09, 2017 22:33
[2017-09-10 00:52] VITALS: BP 147/60
[2017-09-10 04:00] VITALS: BP 142/78
[2017-09-10] MEDS: Amiodarone 200mg tab ORAL SCH (06:46)
[2017-09-10 08:00] VITALS: BP 123/61
[2017-09-10] MEDS: Docusate 100mg cap ORAL SCH ×2 (09:09→18:02)
[2017-09-10] MEDS: Metoprolol 25mg tab ORAL SCH ×2 (09:10→20:39)
[2017-09-10 10:05] LABS: BASOPHILS % (AUTO) 1.1 % (0.0-2.0); EOSINOPHILS % (AUTO) 0.8 % (0.0-3.0); HEMOGLOBIN 13.6 G/DL (12.0-16.0); LYMPHOCYTES % (AUTO) 21.7 % (20.0-45.0); MEAN CORPUSCULAR VOLUME 92 FL (80-99); MONOCYTES % (AUTO) 6.6 % (1.0-10.0); NEUTROPHILS % (AUTO) 69.8 % (45.0-75.0); PLATELET COUNT 128 K/UL (150-450); RED BLOOD COUNT 4.34 M/UL (4.20-5.40); RED CELL DISTRIBUTION WIDTH 14.5 % (11.6-14.8); WHITE BLOOD COUNT 5.6 K/UL (4.8-10.8)
[2017-09-10 10:50] LABS: ANION GAP 8 mmol/L (5-15); BLOOD UREA NITROGEN 9 mg/dL (7-18); CALCIUM 8.5 MG/DL (8.5-10.1); CARBON DIOXIDE 26 MMOL/L (21-32); CHLORIDE 107 MMOL/L (98-107); CREATININE 0.7 MG/DL (0.55-1.30); POTASSIUM 3.8 MMOL/L (3.5-5.1); SODIUM 141 MMOL/L (136-145)
[2017-09-10 12:00] VITALS: BP 95/56
[2017-09-10] MEDS: Norco 5mg/325mg tab ORAL PRN (15:25)
[2017-09-10 16:00] VITALS: BP 130/77
--- NOTE | 2017-09-10 16:13 | Internal Med Progress Note ---
Subjective Date of Service: Sep 10, 2017 Physician Name Scotty Schwarz Attending Physician Roderick Mckee MD Current Medications Medications (Trade) Dose Ordered Sig/Radha Route PRN Reason Start Time Stop Time Status Last Admin Dose Admin Acetaminophen/ Hydrocodone Bitart ([place] 5/325) 1 tab Q4H PRN ORAL Moderate Pain (Pain Scale 4-6) 09/07/17 09:00 09/14/17 08:59 09/10/17 15:25 Bisacodyl (Dulcolax) 5 mg DAILYPRN PRN ORAL Constipation 09/09/17 12:30 10/09/17 12:29 09/09/17 13:42 Docusate Sodium (Colace) 100 mg TWICE A DAY ORAL 09/09/17 18:00 10/09/17 17:59 09/10/17 09:09 Metoprolol Tartrate (Lopressor) 5 mg Q5MIN X 3 IVP 09/09/17 07:30 10/09/17 07:29 Metoprolol Tartrate (Lopressor) 50 mg Q12HR ORAL 09/10/17 09:00 10/10/17 08:59 09/10/17 09:10 Morphine Sulfate (Morphine Sulfate) 2 mg Q4H PRN IM Severe Pain (Pain Scale 7-10) 09/07/17 09:00 09/14/17 08:59 Ondansetron HCl (Zofran) 4 mg Q6H PRN IVP Nausea & Vomiting 09/06/17 22:30 10/06/17 22:29 Allergies: Coded Allergies: No Known Allergies (Verified Allergy, Unknown, 06/18/08) ROS Limited/Unobtainable: No Constitutional: Reports: no symptoms HEENT: Reports: no symptoms Cardiovascular: Reports: no symptoms Respiratory: Reports: no symptoms Gastrointestinal/Abdominal: Reports: no symptoms Genitourinary: Reports: no symptoms Neurologic/Psychiatric: Reports: no symptoms Subjective 82 YO F admitted with back pain. Now acute fracture thoracic 10 vertabra. Await Kyphoplasty T-10 on Tuesday09/12/17. Cover for Int Jono-Dr Mckee Objective Last Vital Signs Date Time Temp Pulse Resp B/P (MAP) Pulse Ox O2 Delivery O2 Flow Rate FiO2 09/10/17 16:00 97.9 55 20 130/77 97 Room Air 97.9 Laboratory Tests Test 09/10/17 09:20 White Blood Count 5.6 K/UL (4.8-10.8) Red Blood Count 4.34 M/UL (4.20-5.40) Hemoglobin 13.6 G/DL (12.0-16.0) Hematocrit 40.0 % (37.0-47.0) Mean Corpuscular Volume 92 FL (80-99) Mean Corpuscular Hemoglobin 31.4 PG (27.0-31.0) H Mean Corpuscular Hemoglobin Concent 34.1 G/DL (32.0-36.0) Red Cell Distribution Width 14.5 % (11.6-14.8) Platelet Count 128 K/UL (150-450) L Mean Platelet Volume 7.8 FL (6.5-10.1) Neutrophils (%) (Auto) 69.8 % (45.0-75.0) Lymphocytes (%) (Auto) 21.7 % (20.0-45.0) Monocytes (%) (Auto) 6.6 % (1.0-10.0) Eosinophils (%) (Auto) 0.8 % (0.0-3.0) Basophils (%) (Auto) 1.1 % (0.0-2.0) Sodium Level 141 MMOL/L (136-145) Potassium Level 3.8 MMOL/L (3.5-5.1) Chloride Level 107 MMOL/L (98-107) Carbon Dioxide Level 26 MMOL/L (21-32) Anion Gap 8 mmol/L (5-15) Blood Urea Nitrogen 9 mg/dL (7-18) Creatinine 0.7 MG/DL (0.55-1.30) Estimat Glomerular Filtration Rate mL/min (>60) Glucose Level 103 MG/DL (74-106) Calcium Level 8.5 MG/DL (8.5-10.1) Intake and Output 09/09/17 09/10/17 19:00 07:00 Intake Total 240 ml 200 ml Balance 240 ml 200 ml Intake Oral 240 ml 200 ml # Voids 4 Objective General Appearance: WD/WN, no apparent distress, alert EENT: PERRL/EOMI, normal ENT inspection, TMs normal Neck: non-tender, normal alignment, supple Cardiovascular: normal peripheral pulses, normal rate, regular rhythm, no gallop/murmur, no JVD Respiratory/Chest: chest wall non-tender, lungs clear, normal breath sounds, no respiratory distress, no accessory muscle use Abdomen: normal bowel sounds, non tender, soft, no organomegaly, no mass Extremities: normal range of motion, non-tender 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 (2) HTN (hypertension) Assessment & Plan: Continue Metoprolol (3) T12 compression fracture (4) Atrial fibrillation with rapid ventricular response Assessment & Plan: Continue amiodarone-see cardiology note. (5) Back pain (6) Wedge compression fracture of T10 vertebra Assessment & Plan: Acute. Await T-10 kyphoplasty Status: not improved SCOTTY SCHWARZ Sep 10, 2017 16:13
--- NOTE | 2017-09-10 18:06 | Cardiology Report ---
APPROVED REPORT EKG Measurement Heart [id number] [place] [id number] Sinus bradycardia with occasional premature ventricular complexes T wave abnormality, consider lateral ischemia Abnormal ECG
[2017-09-10 20:00] VITALS: BP 116/74
--- NOTE | 2017-09-10 21:59 | Cardiology Progress Note ---
Assessment/Plan Assessment/Plan 1. PAF, now in sinus rhythm, on PO loading dose of amiodarone until Tuesday, off Pradaxa in preparation for Kyphoplasty. Continue metoprolol, 2D echo reveals normal LV systolic function with LVEF at 60%. 2. Low back pain, awaiting kyphoplasty, should be off pradaxa for 3 days prior to the surgery. Subjective Subjective Sinus rhythm at 65 with single VPC. Objective Last 24 Hour Vital Signs Date Time Temp Pulse Resp B/P (MAP) Pulse Ox O2 Delivery O2 Flow Rate FiO2 09/10/17 20:39 53 126/74 09/10/17 20:00 97.3 53 16 116/74 95 97.3 09/10/17 16:24 97.9 09/10/17 16:00 97.9 55 20 130/77 97 Room Air 97.9 09/10/17 16:00 62 09/10/17 15:25 97.6 09/10/17 12:00 70 09/10/17 12:00 97.6 50 20 95/56 97 Room Air 97.6 09/10/17 09:10 51 123/61 09/10/17 08:00 55 09/10/17 08:00 97.8 51 20 123/61 95 Room Air 97.8 09/10/17 04:00 97.7 48 20 142/78 95 Room Air 97.7 09/10/17 03:43 52 09/10/17 00:52 58 20 147/60 96 Room Air 09/09/17 23:43 62 09/09/17 22:08 97.7 Intake and Output 09/09/17 09/10/17 19:00 07:00 Intake Total 240 ml 200 ml Balance 240 ml 200 ml Intake Oral 240 ml 200 ml # Voids 4 2D Echo: EF 60%, Mild LAE, Mild MR, Mild MO, RVSP 40 mmHg Laboratory Tests Test 09/10/17 09:20 White Blood Count 5.6 K/UL (4.8-10.8) Red Blood Count 4.34 M/UL (4.20-5.40) Hemoglobin 13.6 G/DL (12.0-16.0) Hematocrit 40.0 % (37.0-47.0) Mean Corpuscular Volume 92 FL (80-99) Mean Corpuscular Hemoglobin 31.4 PG (27.0-31.0) H Mean Corpuscular Hemoglobin Concent 34.1 G/DL (32.0-36.0) Red Cell Distribution Width 14.5 % (11.6-14.8) Platelet Count 128 K/UL (150-450) L Mean Platelet Volume 7.8 FL (6.5-10.1) Neutrophils (%) (Auto) 69.8 % (45.0-75.0) Lymphocytes (%) (Auto) 21.7 % (20.0-45.0) Monocytes (%) (Auto) 6.6 % (1.0-10.0) Eosinophils (%) (Auto) 0.8 % (0.0-3.0) Basophils (%) (Auto) 1.1 % (0.0-2.0) Sodium Level 141 MMOL/L (136-145) Potassium Level 3.8 MMOL/L (3.5-5.1) Chloride Level 107 MMOL/L (98-107) Carbon Dioxide Level 26 MMOL/L (21-32) Anion Gap 8 mmol/L (5-15) Blood Urea Nitrogen 9 mg/dL (7-18) Creatinine 0.7 MG/DL (0.55-1.30) Estimat Glomerular Filtration Rate mL/min (>60) Glucose Level 103 MG/DL (74-106) Calcium Level 8.5 MG/DL (8.5-10.1) Objective HEENT: Atraumatic and normocephalic. ENT, pupils are equal, round, and reactive to light and accommodation. Extraocular muscles intact. NECK: JVP less than 5 cm. No carotid bruit. Carotid upstroke is 2+ bilaterally. CARDIOVASCULAR: Normal S1 and S2. Regular rate rhythm. No murmurs, gallops, or rubs. PMI is at fourth intercostal space in the midclavicular line. LUNGS: Clear to auscultation bilaterally. ABDOMEN: Soft, nontender, and nondistended. No hepatosplenomegaly. Positive bowel sounds. EXTREMITIES: No evidence of edema, clubbing, or cyanosis. BRENDEN JARAMILLO Sep 10, 2017 21:59
[2017-09-11] VITALS: BP 136/58
[2017-09-11 04:00] VITALS: BP 139/72
[2017-09-11 08:00] VITALS: BP 117/52
[2017-09-11] MEDS: Metoprolol 25mg tab ORAL SCH ×2 (09:12→21:46)
[2017-09-11] MEDS: Amiodarone 200mg tab ORAL SCH (09:12)
[2017-09-11] MEDS: Docusate 100mg cap ORAL SCH ×2 (09:12→17:25)
[2017-09-11 11:47] VITALS: BP 109/71
[2017-09-11 15:53] VITALS: BP 112/53
[2017-09-11] MEDS: Norco 5mg/325mg tab ORAL PRN (17:32)
[2017-09-11 20:00] VITALS: BP 117/61
--- NOTE | 2017-09-11 21:23 | Cardiology Progress Note ---
Assessment/Plan Assessment/Plan 1. PAF, now in SR/SB, continue amiodarone 200mg daily, off Pradaxa in preparation for Kyphoplasty. Continue metoprolol, 2D echo reveals normal LV systolic function with LVEF at 60%. 2. Low back pain, awaiting kyphoplasty, has been off pradaxa for 3 days. Subjective Subjective Sinus bradycardia at 51. Objective Last 24 Hour Vital Signs Date Time Temp Pulse Resp B/P (MAP) Pulse Ox O2 Delivery O2 Flow Rate FiO2 09/11/17 20:00 97.9 51 18 117/61 95 Room Air 97.9 09/11/17 16:23 63 09/11/17 15:53 98.3 50 20 112/53 95 Room Air 98.3 09/11/17 12:00 61 09/11/17 11:47 97.9 50 19 109/71 95 Room Air 97.9 09/11/17 09:12 56 117/52 09/11/17 08:00 50 09/11/17 08:00 97.9 56 18 117/52 97 Room Air 97.9 09/11/17 04:00 97.0 49 20 139/72 95 Room Air 97.0 09/11/17 03:52 50 09/11/17 00:00 97.5 49 18 136/58 96 97.5 09/10/17 23:38 44 Intake and Output 09/10/17 09/11/17 19:00 07:00 Intake Total 940 ml 120 ml Balance 940 ml 120 ml Intake Oral 940 ml 120 ml # Voids 2 2D Echo: EF 60%, Mild LAE, Mild MR, Mild ME, RVSP 40 mmHg Objective HEENT: Atraumatic and normocephalic. ENT, pupils are equal, round, and reactive to light and accommodation. Extraocular muscles intact. NECK: JVP less than 5 cm. No carotid bruit. Carotid upstroke is 2+ bilaterally. CARDIOVASCULAR: Normal S1 and S2. Regular rate rhythm. Bradycardic. No murmurs, gallops, or rubs. PMI is at fourth intercostal space in the midclavicular line. LUNGS: Clear to auscultation bilaterally. ABDOMEN: Soft, nontender, and nondistended. No hepatosplenomegaly. Positive bowel sounds. EXTREMITIES: No evidence of edema, clubbing, or cyanosis. BRENDEN JARAMILLO Sep 11, 2017 21:23
[2017-09-12] VITALS (16 sets, daily range): BP systolic 114–156; BP diastolic 47–91
[2017-09-12] MEDS: Docusate 100mg cap ORAL SCH ×2 (09:00→18:00)
[2017-09-12] MEDS: Metoprolol 25mg tab ORAL SCH (09:00)
[2017-09-12] MEDS: Amiodarone 200mg tab ORAL SCH (09:00)
--- NOTE | 2017-09-12 09:22 | Pre-Procedure Note/Attestation ---
Pre-Procedure Note/Attestation Complete Prior to Procedure Planned Procedure: not applicable Procedure Narrative: T10 kyphoplasty Indications for Procedure Pre-Operative Diagnosis: Painful acute T10 compression fracture Attestation I attest that I discussed the nature of the procedure; its benefits; risks and complications; and alternatives (and the risks and benefits of such alternatives ), prior to the procedure, with the patient (or the patient's legal customer service representative teacher). I attest that, if there was a reasonable possibility of needing a blood transfusion, the patient (or the patient's legal customer service representative teacher) was given the [facility] standardized written summary, pursuant to the [place] Blood Safety Act ([place] Health and Safety Code # 1645, as amended). I attest that I re-evaluated the patient just prior to the surgery and that there has been no change in the patient's H&P, except as documented below: DAVID VILLARREAL M.D. Sep 12, 2017 09:22
[2017-09-12] MEDS ORDERED: fentaNYL 100 mcg/2 mL IV ONE (09:30)
[2017-09-12] MEDS ORDERED: Propofol 200mg/20ml IV ONE (09:30)
[2017-09-12] MEDS ORDERED: Lidocaine 1% 10mg/ml/Epi 0.005mg/ml 30ml vial INJ ONE (09:30)
--- NOTE | 2017-09-12 11:45 | Brief Operative Note ---
Immediate Post Operative Note Operative Note Pre-op Diagnosis: Painful acute T10 compression fracture Procedure: T10 Kyphoplasty Post-op Diagnosis: same as pre-op Findings: consistent w/pre-op dx studies Surgeon: Yonathan VILLARREAL Anesthesia: MAC Specimen: yes - bone marrow Complications: none Condition: stable Fluids: none Drains: none Implant(s) used?: No DAVID VILLARREAL M.D. Sep 12, 2017 11:45
--- NOTE | 2017-09-12 13:26 | Pulmonology Progress Note ---
Assessment/Plan Problems: (1) Atrial fibrillation with rapid ventricular response (2) T12 compression fracture Assessment/Plan kyphoplasty done/ heart rate is around 40's cardiology to adjust metoprolol and amiodarone Subjective Interval Events: kyphoplasty done Allergies: Coded Allergies: No Known Allergies (Verified Allergy, Unknown, 06/18/08) Objective Last 24 Hour Vital Signs Date Time Temp Pulse Resp B/P (MAP) Pulse Ox O2 Delivery O2 Flow Rate FiO2 09/12/17 12:53 96.8 46 17 146/56 97 Nasal Cannula 2.0 96.8 09/12/17 12:34 49 09/12/17 12:30 96.8 46 17 156/68 98 Nasal Cannula 2.0 96.8 09/12/17 12:05 98.0 49 15 145/66 99 Nasal Cannula 3.0 98.0 09/12/17 11:50 46 15 136/61 99 Nasal Cannula 3.0 09/12/17 11:40 46 19 138/61 99 Nasal Cannula 3.0 09/12/17 11:30 46 18 140/60 99 Nasal Cannula 3.0 09/12/17 11:25 46 15 139/59 99 Nasal Cannula 3.0 09/12/17 11:20 97.7 50 17 142/58 95 Nasal Cannula 3.0 97.7 09/12/17 10:19 70 18 6.0 09/12/17 09:00 50 115/66 09/12/17 08:00 97.9 50 19 115/66 97 Room Air 97.9 09/12/17 07:02 65 09/12/17 04:00 61 09/12/17 04:00 97.7 50 18 114/47 94 Room Air 97.7 09/12/17 00:00 97.5 46 18 130/60 95 Room Air 97.5 09/12/17 00:00 61 09/11/17 21:46 51 117/61 09/11/17 20:00 75 09/11/17 20:00 97.9 51 18 117/61 95 Room Air 97.9 09/11/17 16:23 63 09/11/17 15:53 98.3 50 20 112/53 95 Room Air 98.3 Intake and Output 09/11/17 09/12/17 19:00 07:00 Intake Total 400 ml Balance 400 ml Intake Oral 400 ml # Voids 2 3 General Appearance: WD/WN HEENT: normocephalic, atraumatic Respiratory/Chest: chest wall non-tender, lungs clear, normal breath sounds Breasts: no masses Cardiovascular: normal rate Abdomen: normal bowel sounds, soft, non tender, no organomegaly Genitourinary: normal external genitalia Neurologic/Psychiatric: bobtailer II-XII grossly normal Laboratory Tests 09/12/17 06:00: Prothrombin Time 10.0, Prothromb Time International Ratio 1.0, Activated Partial Thromboplast Time 27 Current Medications Medications (Trade) Dose Ordered Sig/Radha Route PRN Reason Start Time Stop Time Status Last Admin Dose Admin Acetaminophen/ Hydrocodone Bitart ([place] 5/325) 1 tab Q4H PRN ORAL Moderate Pain (Pain Scale 4-6) 09/07/17 09:00 09/14/17 08:59 09/11/17 17:32 Amiodarone HCl (Cordarone) 200 mg DAILY ORAL 09/11/17 09:00 10/11/17 08:59 09/11/17 09:12 Bisacodyl (Dulcolax) 5 mg DAILYPRN PRN ORAL Constipation 09/09/17 12:30 10/09/17 12:29 09/09/17 13:42 Docusate Sodium (Colace) 100 mg TWICE A DAY ORAL 09/09/17 18:00 10/09/17 17:59 09/11/17 09:12 Metoprolol Tartrate (Lopressor) 5 mg Q5MIN X 3 IVP 09/09/17 07:30 10/09/17 07:29 Metoprolol Tartrate (Lopressor) 50 mg Q12HR ORAL 09/10/17 09:00 10/10/17 08:59 09/11/17 21:46 Morphine Sulfate (Morphine Sulfate) 2 mg Q4H PRN IM Severe Pain (Pain Scale 7-10) 09/07/17 09:00 09/14/17 08:59 Ondansetron HCl (Zofran) 4 mg Q6H PRN IVP Nausea & Vomiting 09/06/17 22:30 10/06/17 22:29 Marguerite Pak MD Sep 12, 2017 13:26
--- NOTE | 2017-09-12 15:38 | Diagnostic Imaging Report ---
Indication: Back pain, painful T10 compression fracture Technique: Prior imaging studies reviewed. Informed consent obtained prior to commencement of the procedure. Procedure timeout performed. Procedure performed under deep sedation by anesthesiologist. Patient given preprocedure antibiotics. Biplane fluoroscopy used to localize the appropriate thoracic spine level and the optimal puncture site. Total sterile technique, including sterile gloves and hand hygiene, hat, mask, sterile gown, large sterile drape, and preparation with 2% chlorhexidine utilized. Under biplane fluoroscopic guidance, 2 cannulae were placed through each of the T10 pedicles into the posterior aspect of the vertebral body. A drill was inserted into each of those, passed toward the anterior aspect of the vertebral body in order to clear a tract for balloon placement. Specimens removed by the drill sent to pathology for histological analysis. Balloons were then inserted through each of the cannulae, and inflated to the appropriate level and inflation under fluoroscopic guidance. Radiopaque bone cement was then injected into the vertebral body using bone cement introducer assembly inserted coaxially through each of the cannulae, initially the left and then the right. This was done under direct fluoroscopic supervision. When appropriate fill of the vertebral body was achieved, injection was ceased. Each of the cannulae were removed. Completion saved fluoroscopic images demonstrate good fill of the vertebral body, without evidence of cement outside the vertebral body. This was deemed satisfactory. The patient tolerated the procedure well, without immediate complication. Fixed fluoroscoped and a surgical C-arm were utilized For the fixed fluoroscopy unit: Total fluoroscopy time 4.9 minutes. Total dose area product 192 dGycm2 For the surgical C-arm: Total fluoroscopy time 245 seconds. Total dose area product 33.95 mGycm2 Comparison: Reference made to thoracic spine MRI dated 09/07/2017 Findings: As above Impression: Apparently successful T10 kyphoplasty under fluoroscopic guidance, as described
--- NOTE | 2017-09-12 17:34 | Cardiology Progress Note ---
Assessment/Plan Assessment/Plan 1. PAF, now profound sinus bradycardia, DC metoprolol, continue amiodarone, resume Pradaxa in am. 2. Normal LV systolic function with LVEF at 60%. 3. T10 compression fracture,s/p kyphoplasty, will resume pradaxa in am. Subjective Subjective Sinus bradycardia at 46. s/p kyphoplasty today. Objective Last 24 Hour Vital Signs Date Time Temp Pulse Resp B/P (MAP) Pulse Ox O2 Delivery O2 Flow Rate FiO2 09/12/17 16:00 97.2 98 19 156/80 98 Room Air 97.2 09/12/17 14:23 97.9 52 17 145/65 97 Nasal Cannula 2.0 97.9 09/12/17 13:23 97.2 50 18 152/70 98 Nasal Cannula 2.0 97.2 09/12/17 12:53 96.8 46 17 146/56 97 Nasal Cannula 2.0 96.8 09/12/17 12:34 49 09/12/17 12:30 96.8 46 17 156/68 98 Nasal Cannula 2.0 96.8 09/12/17 12:05 98.0 49 15 145/66 99 Nasal Cannula 3.0 98.0 09/12/17 11:50 46 15 136/61 99 Nasal Cannula 3.0 09/12/17 11:40 46 19 138/61 99 Nasal Cannula 3.0 09/12/17 11:30 46 18 140/60 99 Nasal Cannula 3.0 09/12/17 11:25 46 15 139/59 99 Nasal Cannula 3.0 09/12/17 11:20 97.7 50 17 142/58 95 Nasal Cannula 3.0 97.7 09/12/17 10:19 70 18 6.0 09/12/17 09:00 50 115/66 09/12/17 08:00 97.9 50 19 115/66 97 Room Air 97.9 09/12/17 07:02 65 09/12/17 04:00 61 09/12/17 04:00 97.7 50 18 114/47 94 Room Air 97.7 09/12/17 00:00 97.5 46 18 130/60 95 Room Air 97.5 09/12/17 00:00 61 09/11/17 21:46 51 117/61 09/11/17 20:00 75 09/11/17 20:00 97.9 51 18 117/61 95 Room Air 97.9 Intake and Output 09/11/17 09/12/17 19:00 07:00 Intake Total 400 ml Balance 400 ml Intake Oral 400 ml # Voids 2 3 2D Echo: EF 60%, Mild LAE, Mild MR, Mild GA, RVSP 40 mmHg Laboratory Tests Test 09/12/17 06:00 Prothrombin Time 10.0 SEC (9.30-11.50) Prothromb Time International Ratio 1.0 (0.9-1.1) Activated Partial Thromboplast Time 27 SEC (23-33) Objective HEENT: Atraumatic and normocephalic. ENT, pupils are equal, round, and reactive to light and accommodation. Extraocular muscles intact. NECK: JVP less than 5 cm. No carotid bruit. Carotid upstroke is 2+ bilaterally. CARDIOVASCULAR: Normal S1 and S2. Regular rate rhythm. Bradycardic. No murmurs, gallops, or rubs. PMI is at fourth intercostal space in the midclavicular line. LUNGS: Clear to auscultation bilaterally. ABDOMEN: Soft, nontender, and nondistended. No hepatosplenomegaly. Positive bowel sounds. EXTREMITIES: No evidence of edema, clubbing, or cyanosis. BRENDEN JARAMILLO Sep 12, 2017 17:34
[2017-09-12] MEDS: Norco 5mg/325mg tab ORAL PRN (23:05)
[2017-09-13] VITALS: BP 108/65
[2017-09-13 04:00] VITALS: BP 92/47
[2017-09-13 08:00] VITALS: BP 104/75
--- NOTE | 2017-09-13 09:07 | General Progress Note ---
Progress Note Progress Note States back feels about the same after kyphoplasty. No neurological sx AFVSS. OK to DC at any time from IR standpoint We will FU with ptDAVID YEAGER M.D. Sep 13, 2017 09:07
[2017-09-13 09:15] LABS: BASOPHILS % (AUTO) 1.2 % (0.0-2.0); EOSINOPHILS % (AUTO) 0.8 % (0.0-3.0); HEMATOCRIT 44.6 % (37.0-47.0); HEMOGLOBIN 15.1 G/DL (12.0-16.0); LYMPHOCYTES % (AUTO) 12.8 % (20.0-45.0); MEAN CORPUSCULAR VOLUME 94 FL (80-99); MONOCYTES % (AUTO) 10.1 % (1.0-10.0); NEUTROPHILS % (AUTO) 75.2 % (45.0-75.0); PLATELET COUNT 142 K/UL (150-450); RED BLOOD COUNT 4.75 M/UL (4.20-5.40); RED CELL DISTRIBUTION WIDTH 14.3 % (11.6-14.8); WHITE BLOOD COUNT 5.3 K/UL (4.8-10.8)
[2017-09-13 09:19] LABS: ALANINE AMINOTRANSFERASE 15 U/L (12-78); ALBUMIN 3.3 G/DL (3.4-5.0); ALBUMIN/GLOBULIN RATIO 0.9 (1.0-2.7); ALKALINE PHOSPHATASE 110 U/L (46-116); ANION GAP 9 mmol/L (5-15); ASPARTATE AMINO TRANSFERASE 34 U/L (15-37); BLOOD UREA NITROGEN 13 mg/dL (7-18); CALCIUM 8.9 MG/DL (8.5-10.1); CARBON DIOXIDE 27 MMOL/L (21-32); CHLORIDE 104 MMOL/L (98-107); CREATININE 0.8 MG/DL (0.55-1.30); PHOSPHORUS 4.1 MG/DL (2.5-4.9); POTASSIUM 3.7 MMOL/L (3.5-5.1); SODIUM 140 MMOL/L (136-145)
[2017-09-13] MEDS: Dabigatran 150mg cap ORAL SCH ×2 (09:24→21:33)
[2017-09-13] MEDS: Amiodarone 200mg tab ORAL SCH (09:24)
[2017-09-13] MEDS: Docusate 100mg cap ORAL SCH ×2 (09:55→17:12)
[2017-09-13] MEDS: Norco 5mg/325mg tab ORAL PRN ×2 (09:55→17:12)
[2017-09-13 12:00] VITALS: BP 118/66
[2017-09-13] MEDS ORDERED: METOPROLOL TART25 MG ORAL (13:42)
[2017-09-13] MEDS ORDERED: PRADAXA75 MG ORAL (13:42)
[2017-09-13] MEDS ORDERED: NORCO 5-325 TA1 EACH ORAL (13:42)
[2017-09-13] MEDS ORDERED: PACERONE200 MG ORAL (13:42)
--- NOTE | 2017-09-13 14:28 | Pulmonology Progress Note ---
Assessment/Plan Problems: (1) Atrial fibrillation with rapid ventricular response (2) T12 compression fracture Assessment/Plan kyphoplasty done yesterday heart rate was around 40's Amiodarone only now, B-ed discontinued dc planing for rehab ( short term) Subjective ROS Limited/Unobtainable: No Constitutional: Reports: no symptoms HEENT: Repors: no symptoms Respiratory: Reports: no symptoms Allergies: Coded Allergies: No Known Allergies (Verified Allergy, Unknown, 06/18/08) Objective Last 24 Hour Vital Signs Date Time Temp Pulse Resp B/P (MAP) Pulse Ox O2 Delivery O2 Flow Rate FiO2 09/13/17 12:00 97.5 64 19 118/66 93 Room Air 97.5 09/13/17 11:41 63 09/13/17 08:00 97.2 65 18 104/75 93 Room Air 97.2 09/13/17 07:40 73 09/13/17 04:00 97.7 62 19 92/47 94 Room Air 97.7 09/13/17 04:00 66 09/13/17 00:00 125 09/13/17 00:00 97.5 110 20 108/65 93 Room Air 97.5 09/12/17 20:00 73 09/12/17 20:00 98.1 120 20 138/91 93 Room Air 98.1 09/12/17 16:35 50 09/12/17 16:00 97.2 98 19 156/80 98 Room Air 97.2 Intake and Output 09/12/17 09/13/17 19:00 07:00 Intake Total 700 ml Balance 700 ml Intake Oral 300 ml IV Total 400 ml # Voids 2 2 General Appearance: WD/WN HEENT: normocephalic Respiratory/Chest: chest wall non-tender, lungs clear Breasts: no masses Cardiovascular: normal peripheral pulses Abdomen: normal bowel sounds, soft, non tender Genitourinary: normal external genitalia Extremities: no cyanosis Neurologic/Psychiatric: marketing and development coordinator II-XII grossly normal Laboratory Tests 09/13/17 08:00: White Blood Count 5.3, Red Blood Count 4.75, Hemoglobin 15.1, Hematocrit 44.6, Mean Corpuscular Volume 94, Mean Corpuscular Hemoglobin 31.9H, Mean Corpuscular Hemoglobin Concent 34.0, Red Cell Distribution Width 14.3, Platelet Count 142L, Mean Platelet Volume 8.1, Neutrophils (%) (Auto) 75.2H, Lymphocytes (%) (Auto) 12.8L, Monocytes (%) (Auto) 10.1H, Eosinophils (%) (Auto) 0.8, Basophils (%) ( Auto) 1.2, Prothrombin Time 10.1, Prothromb Time International Ratio 1.0, Activated Partial Thromboplast Time 29, Sodium Level 140, Potassium Level 3.7, Chloride Level 104, Carbon Dioxide Level 27, Anion Gap 9, Blood Urea Nitrogen 13 , Creatinine 0.8, Estimat Glomerular Filtration Rate , Glucose Level 106, Calcium Level 8.9, Phosphorus Level 4.1, Magnesium Level 1.7L, Total Bilirubin 1.0, Aspartate Amino Transf (AST/SGOT) 34, Alanine Aminotransferase (ALT/SGPT) 15, Alkaline Phosphatase 110, Total Protein 6.8, Albumin 3.3L, Globulin 3.5, Albumin/Globulin Ratio 0.9L Current Medications Medications (Trade) Dose Ordered Sig/Radha Route PRN Reason Start Time Stop Time Status Last Admin Dose Admin Acetaminophen/ Hydrocodone Bitart ([place] 5/325) 1 tab Q4H PRN ORAL Moderate Pain (Pain Scale 4-6) 09/07/17 09:00 09/14/17 08:59 09/13/17 09:55 Amiodarone HCl (Cordarone) 200 mg DAILY ORAL 09/11/17 09:00 10/11/17 08:59 09/13/17 09:24 Bisacodyl (Dulcolax) 5 mg DAILYPRN PRN ORAL Constipation 09/09/17 12:30 10/09/17 12:29 09/09/17 13:42 Dabigatran (Pradaxa) 150 mg EVERY 12 HOURS ORAL 09/13/17 09:00 10/13/17 08:59 09/13/17 09:24 Docusate Sodium (Colace) 100 mg TWICE A DAY ORAL 09/09/17 18:00 10/09/17 17:59 09/13/17 09:55 Morphine Sulfate (Morphine Sulfate) 2 mg Q4H PRN IM Severe Pain (Pain Scale 7-10) 09/07/17 09:00 09/14/17 08:59 09/12/17 20:12 Ondansetron HCl (Zofran) 4 mg Q6H PRN IVP Nausea & Vomiting 09/06/17 22:30 10/06/17 22:29 Marguerite Pak MD Sep 13, 2017 14:28
[2017-09-13 16:00] VITALS: BP 100/54
[2017-09-13 20:00] VITALS: BP 139/73
--- NOTE | 2017-09-13 22:25 | Cardiology Progress Note ---
Assessment/Plan Assessment/Plan 1. PAF, now sinus rhythm, off metoprolol, continue amiodarone, resume Pradaxa in am. 2. Normal LV systolic function with LVEF at 60%. 3. T10 compression fracture,s/p kyphoplasty, will resume pradaxa in am. Subjective Subjective Sinus bradycardia at 59 with single VPC. Objective Last 24 Hour Vital Signs Date Time Temp Pulse Resp B/P (MAP) Pulse Ox O2 Delivery O2 Flow Rate FiO2 09/13/17 20:00 98.0 60 16 139/73 96 98.0 09/13/17 16:00 97.5 43 21 100/54 97 Room Air 97.5 09/13/17 15:42 63 09/13/17 12:00 97.5 64 19 118/66 93 Room Air 97.5 09/13/17 11:41 63 09/13/17 08:00 97.2 65 18 104/75 93 Room Air 97.2 09/13/17 07:40 73 09/13/17 04:00 97.7 62 19 92/47 94 Room Air 97.7 09/13/17 04:00 66 09/13/17 00:00 125 09/13/17 00:00 97.5 110 20 108/65 93 Room Air 97.5 Intake and Output 09/12/17 09/13/17 19:00 07:00 Intake Total 700 ml Balance 700 ml Intake Oral 300 ml IV Total 400 ml # Voids 2 2 2D Echo: EF 60%, Mild LAE, Mild MR, Mild VT, RVSP 40 mmHg Laboratory Tests Test 09/13/17 08:00 White Blood Count 5.3 K/UL (4.8-10.8) Red Blood Count 4.75 M/UL (4.20-5.40) Hemoglobin 15.1 G/DL (12.0-16.0) Hematocrit 44.6 % (37.0-47.0) Mean Corpuscular Volume 94 FL (80-99) Mean Corpuscular Hemoglobin 31.9 PG (27.0-31.0) H Mean Corpuscular Hemoglobin Concent 34.0 G/DL (32.0-36.0) Red Cell Distribution Width 14.3 % (11.6-14.8) Platelet Count 142 K/UL (150-450) L Mean Platelet Volume 8.1 FL (6.5-10.1) Neutrophils (%) (Auto) 75.2 % (45.0-75.0) H Lymphocytes (%) (Auto) 12.8 % (20.0-45.0) L Monocytes (%) (Auto) 10.1 % (1.0-10.0) H Eosinophils (%) (Auto) 0.8 % (0.0-3.0) Basophils (%) (Auto) 1.2 % (0.0-2.0) Prothrombin Time 10.1 SEC (9.30-11.50) Prothromb Time International Ratio 1.0 (0.9-1.1) Activated Partial Thromboplast Time 29 SEC (23-33) Sodium Level 140 MMOL/L (136-145) Potassium Level 3.7 MMOL/L (3.5-5.1) Chloride Level 104 MMOL/L (98-107) Carbon Dioxide Level 27 MMOL/L (21-32) Anion Gap 9 mmol/L (5-15) Blood Urea Nitrogen 13 mg/dL (7-18) Creatinine 0.8 MG/DL (0.55-1.30) Estimat Glomerular Filtration Rate mL/min (>60) Glucose Level 106 MG/DL (74-106) Calcium Level 8.9 MG/DL (8.5-10.1) Phosphorus Level 4.1 MG/DL (2.5-4.9) Magnesium Level 1.7 MG/DL (1.8-2.4) L Total Bilirubin 1.0 MG/DL (0.2-1.0) Aspartate Amino Transf (AST/SGOT) 34 U/L (15-37) Alanine Aminotransferase (ALT/SGPT) 15 U/L (12-78) Alkaline Phosphatase 110 U/L (46-116) Total Protein 6.8 G/DL (6.4-8.2) Albumin 3.3 G/DL (3.4-5.0) L Globulin 3.5 g/dL Albumin/Globulin Ratio 0.9 (1.0-2.7) L Objective HEENT: Atraumatic and normocephalic. ENT, pupils are equal, round, and reactive to light and accommodation. Extraocular muscles intact. NECK: JVP less than 5 cm. No carotid bruit. Carotid upstroke is 2+ bilaterally. CARDIOVASCULAR: Normal S1 and S2. Irregular rhythm due to ectopic beats. No murmurs, gallops, or rubs. PMI is at fourth intercostal space in the midclavicular line. LUNGS: Clear to auscultation bilaterally. ABDOMEN: Soft, nontender, and nondistended. No hepatosplenomegaly. Positive bowel sounds. EXTREMITIES: No evidence of edema, clubbing, or cyanosis. BRENDEN JARAMILLO Sep 13, 2017 22:25
[2017-09-14] VITALS: BP 135/68
[2017-09-14 04:00] VITALS: BP 147/61
[2017-09-14 08:00] VITALS: BP 112/72
[2017-09-14] MEDS: Amiodarone 200mg tab ORAL SCH (09:45)
[2017-09-14] MEDS: Dabigatran 150mg cap ORAL SCH (09:46)
[2017-09-14] MEDS: Docusate 100mg cap ORAL SCH (09:46)
[2017-09-14] MEDS: Bisacodyl EC 5mg tab ORAL PRN (09:56)
[2017-09-14] MEDS: Metoprolol 5mg/5ml Inj IVP PRN ×3 (12:10→13:39)
[2017-09-14 13:39] VITALS: BP 118/67
--- NOTE | 2017-09-14 15:11 | Pulmonology Progress Note ---
Assessment/Plan Problems: (1) Atrial fibrillation with rapid ventricular response (2) T12 compression fracture Assessment/Plan kyphoplasty done yesterday heart rate better now Amiodarone only now, B-ed prn dc planing for rehab ( short term) Subjective ROS Limited/Unobtainable: No Interval Events: heart reate fluctuates Constitutional: Reports: no symptoms HEENT: Repors: no symptoms Respiratory: Reports: no symptoms Allergies: Coded Allergies: No Known Allergies (Verified Allergy, Unknown, 06/18/08) Objective Last 24 Hour Vital Signs Date Time Temp Pulse Resp B/P (MAP) Pulse Ox O2 Delivery O2 Flow Rate FiO2 09/14/17 13:39 129 118/67 09/14/17 12:58 130 113/59 09/14/17 12:10 160 123/65 09/14/17 08:00 80 09/14/17 08:00 96.2 80 19 112/72 94 96.2 09/14/17 04:00 98.3 68 16 147/61 92 98.3 09/14/17 04:00 71 09/14/17 00:00 98.1 65 16 135/68 96 98.1 09/14/17 00:00 59 09/13/17 20:00 63 09/13/17 20:00 98.0 60 16 139/73 96 98.0 09/13/17 16:00 97.5 43 21 100/54 97 Room Air 97.5 09/13/17 15:42 63 Intake and Output 09/13/17 09/14/17 19:00 07:00 Intake Total 860 ml 240 ml Balance 860 ml 240 ml Intake Oral 860 ml 240 ml # Voids 1 General Appearance: WD/WN HEENT: normocephalic, atraumatic Respiratory/Chest: chest wall non-tender, lungs clear Cardiovascular: normal peripheral pulses, regularly irregular Abdomen: normal bowel sounds, soft, non tender, no organomegaly Genitourinary: normal external genitalia Skin: no rash Neurologic/Psychiatric: no motor/sensory deficits Marguerite Pak MD Sep 14, 2017 15:11
--- NOTE | 2017-09-14 23:53 | Cardiology Progress Note ---
Assessment/Plan Assessment/Plan 1. PAF, now sinus rhythm, off metoprolol, continue amiodarone, resume Pradaxa in am. 2. Normal LV systolic function with LVEF at 60%. 3. T10 compression fracture,s/p kyphoplasty, will resume pradaxa in am. Subjective Subjective Sinus bradycardia at 59 with single VPC. Objective Last 24 Hour Vital Signs Date Time Temp Pulse Resp B/P (MAP) Pulse Ox O2 Delivery O2 Flow Rate FiO2 09/14/17 13:39 129 118/67 09/14/17 12:58 130 113/59 09/14/17 12:10 160 123/65 09/14/17 08:00 80 09/14/17 08:00 96.2 80 19 112/72 94 96.2 09/14/17 04:00 98.3 68 16 147/61 92 98.3 09/14/17 04:00 71 09/14/17 00:00 98.1 65 16 135/68 96 98.1 09/14/17 00:00 59 Intake and Output 09/13/17 09/14/17 19:00 07:00 Intake Total 860 ml 240 ml Balance 860 ml 240 ml Intake Oral 860 ml 240 ml # Voids 1 Objective HEENT: Atraumatic and normocephalic. ENT, pupils are equal, round, and reactive to light and accommodation. Extraocular muscles intact. NECK: JVP less than 5 cm. No carotid bruit. Carotid upstroke is 2+ bilaterally. CARDIOVASCULAR: Normal S1 and S2. Irregular rhythm due to ectopic beats. No murmurs, gallops, or rubs. PMI is at fourth intercostal space in the midclavicular line. LUNGS: Clear to auscultation bilaterally. ABDOMEN: Soft, nontender, and nondistended. No hepatosplenomegaly. Positive bowel sounds. EXTREMITIES: No evidence of edema, clubbing, or cyanosis. BRENDEN JARAMILLO Sep 14, 2017 23:53
--- NOTE | 2017-09-16 12:13 | Discharge Summary ---
Discharge Summary Discharge Summary Discharge Summary DATE OF ADMISSION: 09/06/2017 DATE OF DISCHARGE: 09/14/2017 CONSULTANTS: Dr. Haim Tobin BRIEF HOSPITAL COURSE: Patient is a 82-year-old female, who complained of acute onset of low back pain for last couple of days. She denied any sensory or motor problems in the lower extremities. She denied any loss of consciousness. No nausea. No vomitus. No diarrhea. No constipation. She has medical history significant for hysterectomy and appendectomy and a prior cholecystectomy. On evaluation at ED blood work was unremarkable. Initial CT scan of the spine showed compression deformity fracture on T12. She had severe pain however denied any problems with bladder and bowel control. EKG showed atrial fibrillation with rapid ventricular response. She was given metoprolol 5 mg IV push 2. She was admitted to telemetry for evaluation of rapid A. fib and compression fracture. She underwent cardiac evaluation with Dr. Tobin. Patient failed sotalol for maintaining sinus rhythm. She was started with amiodarone IV then was continued on amiodarone 200 mg by mouth daily. He was initially on both amiodarone and metoprolol however had episodes of low heart rate and Metoprolol was discontinued. He had an echocardiogram that showed EF 60-65%, no evidence of left ventricular hypertrophy, no evidence of pericardial effusion. There was trace aortic insufficiency, mild mitral regurgitation, mild tricuspid regurgitation, mild pulmonary hypertension, mild pulmonic regurgitation present. He eventually converted to sinus rhythm. Patient scheduled for percutaneous kyphoplasty by IR however patient had been on Pradaxa, need to be off medication for 3-5 days prior to procedure. On 09/12/2017, he finally was able to undergo IR kyphoplasty on T10 by Dr. Delgado. He tolerated procedure well. He was eventually resumed on Pradaxa. And heart rate was better off beta ed. FINAL DIAGNOSES: Paroxysmal atrial fibrillation, with RVR T10 compression fracture Status post IR kyphoplasty DISPOSITION: Patient was discharged to rehabilitation center on [address] DISCHARGE MEDICATIONS: Refer to Discharge Medication List. I have been assigned to dictate discharge summary on this account, and I was not involved in the patient's management. Maeve Perez NP Sep 16, 2017 12:13
== END 2017-09-14 14:20 | disposition short-term general hospital (02) | DRG 516 ==
LOC: EMR 14:12 → 2E 18:15 → EDBEDREQ 19:00 → UNDODISIN 09-14 14:20
DX: M48.54XA Collapsed vertebra, not elsewhere classified, thoracic region, initial encounter for fracture (principal); D68.32 Hemorrhagic disorder due to extrinsic circulating anticoagulants; E88.81 Metabolic syndrome and other insulin resistance; R80.9 Proteinuria, unspecified; I48.0 Paroxysmal atrial fibrillation; Z79.01 Long term (current) use of anticoagulants; M54.5 Low back pain; I08.3 Combined rheumatic disorders of mitral, aortic and tricuspid valves; I27.20 Pulmonary hypertension, unspecified; T45.515A Adverse effect of anticoagulants, initial encounter; Y92.019 Unspecified place in single-family (private) house as the place of occurrence of the external cause
CPT/HCPCS: 22513; 36415; 72131; 72157; 80048; 80053; 80061; 81003; 83036; 83690; 83735; 83880; 84100; 84443; 84484; 85025; 85610; 85730; 93005; 93306; 99285; A9585; J2405

== ENCOUNTER 2017-10-09 09:32 | Inpatient (IN) | payer OTHER ==
[~2017-10-09] VITALS: Ht 162.6 cm; Wt 60.8 kg
[~2017-10-09 09:32] MED LIST: LORAZEPAM1 MG ORAL; METOPROLOL TART25 MG ORAL; NORCO 5-325 TA1 EACH ORAL; PACERONE200 MG ORAL; PRADAXA75 MG ORAL; PROTONIX40 MG ORAL; SOTALOL80 M1 ORAL; VITAMIN D400 INTLU ORAL; WARFARIN SODIUM5 MG ORAL; ZOLPIDEM TARTRA10 MG ORAL
[2017-10-09 09:57] VITALS: BP 133/84
[2017-10-09] MEDS ORDERED: Morphine Sulfate 2mg/ml Inj IVP ONE (10:30)
[2017-10-09] MEDS ORDERED: Morphine Sulfate 4mg/ml Inj ONE (10:32)
[2017-10-09 11:39] LABS: BASOPHILS % (AUTO) 0.8 % (0.0-2.0); EOSINOPHILS % (AUTO) 1.1 % (0.0-3.0); HEMATOCRIT 45.5 % (37.0-47.0); HEMOGLOBIN 15.7 G/DL (12.0-16.0); LYMPHOCYTES % (AUTO) 15.5 % (20.0-45.0); MEAN CORPUSCULAR VOLUME 92 FL (80-99); MONOCYTES % (AUTO) 9.4 % (1.0-10.0); NEUTROPHILS % (AUTO) 73.2 % (45.0-75.0); PLATELET COUNT 144 K/UL (150-450); RED BLOOD COUNT 4.93 M/UL (4.20-5.40); WHITE BLOOD COUNT 7.2 K/UL (4.8-10.8)
[2017-10-09 11:47] LABS: ANION GAP 10 mmol/L (5-15); BLOOD UREA NITROGEN 12 mg/dL (7-18); CALCIUM 9.4 MG/DL (8.5-10.1); CARBON DIOXIDE 26 MMOL/L (21-32); CHLORIDE 103 MMOL/L (98-107); CREATININE 0.7 MG/DL (0.55-1.30); POTASSIUM 4.2 MMOL/L (3.5-5.1); SODIUM 139 MMOL/L (136-145)
--- NOTE | 2017-10-09 11:47 | Diagnostic Imaging Report ---
Indication: Back pain. No trauma. Surgery 3 weeks ago Technique: Continuous helical transaxial imaging of the lumbar spine was obtained from the lung bases to the pubic symphysis. No IV contrast was administered. Coronal 2-D reformats were also obtained. Study obtained in a Siemens sensation [address] Total Dose length Product (DLP): 474.[address] Dose Index Volume (CTDIvol): 17.6 mGy Comparison: None Findings: The bones are osteopenic. The lumbar vertebra and intervertebral discs demonstrate normal height. There is no fracture or malalignment identified. There is sclerosis of the lower lumbar facets which also appears slightly hypertrophic. There is a mild anterolisthesis present at L5-S1. Facet arthropathy is severe at this level. There is moderate narrowing of the neural foramen. Aorta is calcified and moderately. IMPRESSION: Grade 1 spondylolisthesis at L5-S1. No definite spondylolysis identified. Facet arthropathy is severe at this level. Moderate neural foraminal stenosis. Osteoporosis. Vascular disease Please refer to the separately dictated CT of the thoracic spine. The CT scanner at [facility] is accredited by the [employer] and the scans are performed using dose optimization techniques as appropriate to a performed exam including Automatic Exposure control.
[2017-10-09 11:51] LABS: ALANINE AMINOTRANSFERASE 18 U/L (12-78); ALBUMIN 3.7 G/DL (3.4-5.0); ALBUMIN/GLOBULIN RATIO 0.9 (1.0-2.7); ALKALINE PHOSPHATASE 97 U/L (46-116); ASPARTATE AMINO TRANSFERASE 33 U/L (15-37); BILIRUBIN,TOTAL 0.7 MG/DL (0.2-1.0)
--- NOTE | 2017-10-09 11:54 | Diagnostic Imaging Report ---
Indication: Back pain. No history of trauma. Recent procedure/surgery 3 weeks ago Technique: Continuous helical transaxial imaging of the thoracic spine was obtained from the lung bases to the pubic symphysis. No IV contrast was administered. Coronal 2-D reformats were also obtained. Study obtained in a Siemens sensation [address] Total Dose length Product (DLP): 642.[address] Dose Index Volume (CTDIvol): 18.19 mGy Comparison: None Findings: The patient has had kyphoplasty at T10 with methylmethacrylate cement noted within the spongiosis compartment of the vertebra which is slightly collapsed and irregular due to the fracture. The cement appears well situated with no evidence of migration. A fracture of the left T10 transverse processes also noted. There is no retropulsion of bone and the spinal canal appears widely capacious at all levels in the thoracic spine. Slight contour deformities of the endplates at T11 and T12 are demonstrated. These may be posttraumatic in nature or degenerative. Acuity of this is unknown. There is no soft tissue swelling. There is generalized osteopenia. There is no obvious acute fracture. Marginal endplate spurs and facet spurs are noted in multiple locations, mild in degree. The aorta is moderately calcified. There is posterior basilar dependent atelectasis demonstrated. Partially image a large renal cyst on the left demonstrated. A central midline cystic focus also partially imaged may be emanating from the liver. Suggestion of other hypodensities in the liver. IMPRESSION: No compelling evidence for acute injury. Status post kyphoplasty T10 vertebra. Left transverse fracture at this level also noted. Per patient this procedure was performed 3 weeks earlier. Osteoporosis and mild degenerative changes of the thoracic spine. Other incidental findings as above The CT scanner at [facility] is accredited by the [employer] and the scans are performed using dose optimization techniques as appropriate to a performed exam including Automatic Exposure control.
--- NOTE | 2017-10-09 12:18 | Emergency Room Report ---
History of Present Illness General Chief Complaint: Lower Back Pain or Injury Source: Patient Present Illness HPI Patient presents with complaints of back pain with radiation bilaterally Essentially mid back with minimal radiation to the paraspinal region Patient was here recently with kyphoplasty performed through radiology department in early September Patient was at a recovery facility Reports that she saw her primary physician since that discharge However now for the past 2 days having increased pain in her pain medication at home was not helping patient feels that she has difficulty ambulating around her house Denies any focal weakness denies any acute fall or trauma Denies any chest pain or short of breath it appears patient had previous atrial fibrillation and was on anticoagulation however asking regarding that patient reports that she was taken off that and has not restarted the medication Allergies: Coded Allergies: ASPIRIN (Verified Allergy, Unknown, 10/09/17) Patient History Past Medical History: see triage record Pertinent Family History: none Reviewed Nursing Documentation: PMH: Agreed; PSxH: Agreed Nursing Documentation-PMH Hx Cardiac Problems: Yes - atrial fibrillation Hx Cancer: No Hx Gastrointestinal Problems: No Hx Neurological Problems: No - Spinal Surgery 2018, Bilat Cataract Review of Systems All Other Systems: negative except mentioned in HPI Physical Exam Vital Signs Date Time Temp Pulse Resp B/P (MAP) Pulse Ox O2 Delivery O2 Flow Rate FiO2 10/09/17 09:47 98.4 71 16 133/84 95 Room Air 98.4 Sp02 EP Interpretation: reviewed, normal General Appearance: mild distress - In acute pain Head: normocephalic, atraumatic Eyes: bilateral eye PERRL, bilateral eye EOMI ENT: normal pharynx, no angioedema Neck: supple, thyroid normal Respiratory: lungs clear Cardiovascular #1: regular rate, rhythm, no edema Gastrointestinal: non tender, soft Musculoskeletal: other - Patient is uncomfortable on palpation diffusely throughout the thoracic and lumbar region no midline step-offs no erythema, there is no sensory deficit, Neurologic: alert, oriented x3, 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 Skin: normal color, no rash Lymphatic: no adenopathy Medical Decision Making Diagnostic Impression: Primary Impression: Unspecified injury of lower back, sequela Additional Impression: Low back pain ER Course Multiple differentials considered patient had extensive imaging obtained along with baseline blood work Patient did somewhat better with pain medicine however still has continued discomfort Patient will require further inpatient care Case is discussed with admitting physician Labs Test 10/09/17 10:23 White Blood Count 7.2 K/UL (4.8-10.8) Red Blood Count 4.93 M/UL (4.20-5.40) Hemoglobin 15.7 G/DL (12.0-16.0) Hematocrit 45.5 % (37.0-47.0) Mean Corpuscular Volume 92 FL (80-99) Mean Corpuscular Hemoglobin 31.7 PG (27.0-31.0) Mean Corpuscular Hemoglobin Concent 34.4 G/DL (32.0-36.0) Red Cell Distribution Width 15.0 % (11.6-14.8) Platelet Count 144 K/UL (150-450) Mean Platelet Volume 7.6 FL (6.5-10.1) Neutrophils (%) (Auto) 73.2 % (45.0-75.0) Lymphocytes (%) (Auto) 15.5 % (20.0-45.0) Monocytes (%) (Auto) 9.4 % (1.0-10.0) Eosinophils (%) (Auto) 1.1 % (0.0-3.0) Basophils (%) (Auto) 0.8 % (0.0-2.0) Sodium Level 139 MMOL/L (136-145) Potassium Level 4.2 MMOL/L (3.5-5.1) Chloride Level 103 MMOL/L (98-107) Carbon Dioxide Level 26 MMOL/L (21-32) Anion Gap 10 mmol/L (5-15) Blood Urea Nitrogen 12 mg/dL (7-18) Creatinine 0.7 MG/DL (0.55-1.30) Estimat Glomerular Filtration Rate mL/min (>60) Glucose Level 114 MG/DL (74-106) Calcium Level 9.4 MG/DL (8.5-10.1) Total Bilirubin 0.7 MG/DL (0.2-1.0) Aspartate Amino Transf (AST/SGOT) 33 U/L (15-37) Alanine Aminotransferase (ALT/SGPT) 18 U/L (12-78) Alkaline Phosphatase 97 U/L (46-116) Total Protein 7.6 G/DL (6.4-8.2) Albumin 3.7 G/DL (3.4-5.0) Globulin 3.9 g/dL Albumin/Globulin Ratio 0.9 (1.0-2.7) EKG Diagnostic Results Rate: normal Rhythm: NSR ST Segments: no acute changes Rhythm Strip Diag. Results EP Interpretation: yes Rate: 77 Rhythm: NSR, no PVC's, no ectopy CT/MRI/US Diagnostic Results CT/MRI/US Diagnostic Results : Impression CT L-spineIMPRESSION: Grade 1 spondylolisthesis at L5-S1. No definite spondylolysis identified. Facet arthropathy is severe at this level. Moderate neural foraminal stenosis. Osteoporosis. Vascular disease Please refer to the separately dictated CT of the thoracic spine. CT thoracic spineIMPRESSION: No compelling evidence for acute injury. Status post kyphoplasty T10 vertebra. Left transverse fracture at this level also noted. Per patient this procedure was performed 3 weeks earlier. Osteoporosis and mild degenerative changes of the thoracic spine. Other incidental findings as above Last Vital Signs Date Time Temp Pulse Resp B/P (MAP) Pulse Ox O2 Delivery O2 Flow Rate FiO2 10/09/17 10:34 98.4 10/09/17 09:57 16 133/84 95 Room Air 10/09/17 09:47 71 Status: improved Disposition: PLACE IN OBSERVATION Condition: Improved Referrals: OTHER,REFERRING (PCP) Gabe Haider DO Oct 09, 2017 12:18
[2017-10-09 12:20] VITALS: BP 128/68
[2017-10-09] MEDS ORDERED: Miralax 17gm pkt ORAL PRN (14:30)
[2017-10-09] MEDS: Morphine Sulfate 4mg/ml Inj IVP PRN ×2 (15:28→20:13)
[2017-10-09 16:00] VITALS: BP 150/75
--- NOTE | 2017-10-09 16:59 | Cardiology Report ---
APPROVED REPORT EKG Measurement Heart [id number] Sinus rhythm with sinus arrhythmia with occasional premature ventricular complexes Nonspecific ST and T wave abnormality Abnormal ECG
[2017-10-09 20:00] VITALS: BP 106/60
[2017-10-09] MEDS: Docusate 100mg cap ORAL SCH (20:12)
[2017-10-09] MEDS: Heparin 5000 units/ml inj SUBQ SCH (20:15)
[2017-10-10] VITALS: BP 122/54
[2017-10-10 04:00] VITALS: BP_SYST 120; BP_SYST 122; BP_DIAS 58; BP_DIAS 67
[2017-10-10 08:00] VITALS: BP_SYST 110; BP_SYST 120; BP_DIAS 61
[2017-10-10] MEDS: Docusate 100mg cap ORAL SCH ×2 (08:57→19:54)
[2017-10-10] MEDS: Sotalol 80mg tab ORAL SCH (08:57)
[2017-10-10] MEDS: Vitamin D 400 INTLU TAB ORAL SCH (08:57)
[2017-10-10] MEDS: Morphine Sulfate 4mg/ml Inj IVP PRN ×2 (08:58→17:57)
[2017-10-10] MEDS: Heparin 5000 units/ml inj SUBQ SCH ×2 (08:58→19:55)
--- NOTE | 2017-10-10 08:59 | Consultation ---
History of Present Illness General Date patient seen: Oct 10, 2017 Chief Complaint: Lower Back Pain or Injury Present Illness Allergies: Coded Allergies: ASPIRIN (Verified Allergy, Unknown, 10/09/17) Medication History Scheduled Sotalol Hcl (Sotalol*), 80 MG ORAL DAILY, (Reported) Vitamin D (Vitamin D3), 400 UNITS ORAL DAILY, (Reported) Discontinued Medications Amiodarone Hcl* (Pacerone*), 200 MG ORAL DAILY Discontinued Reason: Pt stopped taking med Dabigatran Etexilate Mesylate (Pradaxa), 150 MG ORAL EVERY 12 HOURS Discontinued Reason: Pt stopped taking med Hydrocodone Bit/Acetaminophen 5-325* (Sen[place] 5-325*), 1 TAB ORAL Q4H PRN Discontinued Reason: Pt stopped taking med Metoprolol Tartrate* (Metoprolol Tartrate*), 25 MG ORAL EVERY 12 HOURS PRN Discontinued Reason: Pt stopped taking med Warfarin Sod* (Warfarin Sod*), 5 MG ORAL DAILY, (Reported) Discontinued Reason: Pt stopped taking med Patient History Healthcare decision maker Tyshawn Ferrari Resuscitation status Full Code Advanced Directive on File No Physical Exam Last 24 Hour Vital Signs Date Time Temp Pulse Resp B/P (MAP) Pulse Ox O2 Delivery O2 Flow Rate FiO2 10/10/17 08:57 83 120/61 10/10/17 04:00 98.4 69 19 122/58 91 Room Air 98.4 10/10/17 00:00 98.1 73 20 122/54 97 98.1 10/09/17 20:00 98.0 83 20 106/60 96 98.0 10/09/17 16:00 98.1 79 21 150/75 96 Room Air 98.1 10/09/17 12:53 98.4 59 18 128/68 98 Room Air 98.4 10/09/17 12:20 98.4 59 18 128/68 98 Room Air 98.4 10/09/17 11:04 98.4 10/09/17 10:34 98.4 10/09/17 09:57 98.4 16 133/84 95 Room Air 98.4 10/09/17 09:47 98.4 71 16 133/84 95 Room Air 98.4 Intake and Output 10/09/17 10/10/17 19:00 07:00 Intake Total 0 ml 440 ml Balance 0 ml 440 ml Intake Oral 0 ml 440 ml # Voids 1 1 Laboratory Tests Test 10/09/17 10:23 10/10/17 06:45 White Blood Count 7.2 K/UL (4.8-10.8) Pending Red Blood Count 4.93 M/UL (4.20-5.40) Pending Hemoglobin 15.7 G/DL (12.0-16.0) Pending Hematocrit 45.5 % (37.0-47.0) Pending Mean Corpuscular Volume 92 FL (80-99) Pending Mean Corpuscular Hemoglobin 31.7 PG (27.0-31.0) H Pending Mean Corpuscular Hemoglobin Concent 34.4 G/DL (32.0-36.0) Pending Red Cell Distribution Width 15.0 % (11.6-14.8) H Pending Platelet Count 144 K/UL (150-450) L Pending Mean Platelet Volume 7.6 FL (6.5-10.1) Pending Neutrophils (%) (Auto) 73.2 % (45.0-75.0) Pending Lymphocytes (%) (Auto) 15.5 % (20.0-45.0) L Pending Monocytes (%) (Auto) 9.4 % (1.0-10.0) Pending Eosinophils (%) (Auto) 1.1 % (0.0-3.0) Pending Basophils (%) (Auto) 0.8 % (0.0-2.0) Pending Sodium Level 139 MMOL/L (136-145) Pending Potassium Level 4.2 MMOL/L (3.5-5.1) Pending Chloride Level 103 MMOL/L (98-107) Pending Carbon Dioxide Level 26 MMOL/L (21-32) Pending Anion Gap 10 mmol/L (5-15) Blood Urea Nitrogen 12 mg/dL (7-18) Pending Creatinine 0.7 MG/DL (0.55-1.30) Pending Estimat Glomerular Filtration Rate mL/min (>60) Pending Glucose Level 114 MG/DL (74-106) H Pending Calcium Level 9.4 MG/DL (8.5-10.1) Pending Total Bilirubin 0.7 MG/DL (0.2-1.0) Pending Aspartate Amino Transf (AST/SGOT) 33 U/L (15-37) Pending Alanine Aminotransferase (ALT/SGPT) 18 U/L (12-78) Pending Alkaline Phosphatase 97 U/L (46-116) Pending Total Protein 7.6 G/DL (6.4-8.2) Pending Albumin 3.7 G/DL (3.4-5.0) Pending Globulin 3.9 g/dL Pending Albumin/Globulin Ratio 0.9 (1.0-2.7) L Height (Feet): 5 Height (Inches): 4.00 Weight (Pounds): 134 Medications Current Medications Medications (Trade) Dose Ordered Sig/Radha Route PRN Reason Start Time Stop Time Status Last Admin Dose Admin Dextrose (Dextrose 50%) 25 ml STAT PRN IV Hypoglycemia 10/09/17 14:30 11/08/17 14:29 Dextrose (Dextrose 50%) 50 ml STAT PRN IV Hypoglycemia 10/09/17 14:30 11/08/17 14:29 Docusate Sodium (Colace) 100 mg EVERY 12 HOURS ORAL 10/09/17 21:00 11/08/17 20:59 10/10/17 08:57 Heparin Sodium (Porcine) (Heparin 5000 units/ml) 5,000 units EVERY 12 HOURS SUBQ 10/09/17 21:00 11/08/17 20:59 10/09/17 20:15 Morphine Sulfate (Morphine Sulfate) 2 mg Q4H PRN IVP Severe Pain (Pain Scale 7-10) 10/09/17 14:30 10/16/17 14:29 10/10/17 08:58 Ondansetron HCl (Zofran) 4 mg Q6H PRN IVP Nausea & Vomiting 10/09/17 14:30 11/08/17 14:29 Pantoprazole (Protonix) 40 mg DAILY ORAL 10/10/17 09:00 11/09/17 08:59 10/10/17 08:57 Polyethylene Glycol (Miralax) 17 gm HSPRN PRN ORAL Constipation 10/09/17 14:30 11/08/17 14:29 Sotalol HCl (Betapace) 80 mg DAILY ORAL 10/10/17 09:00 11/09/17 08:59 10/10/17 08:57 Vitamin D (Vitamin D) 400 intlu DAILY ORAL 10/10/17 09:00 11/09/17 08:59 10/10/17 08:57 Assessment/Plan Assessment/Plan (1) Thoracic compression Fracture s/p kyphoplasty (2) Lumbar DDD (3) Lumbar spondylosis (4) Muscle spasm seen dictated DEBBIE COX Oct 10, 2017 08:59
[2017-10-10 09:02] LABS: EOSINOPHILS % (AUTO) 1.7 % (0.0-3.0); HEMATOCRIT 41.1 % (37.0-47.0); HEMOGLOBIN 14.4 G/DL (12.0-16.0); MEAN CORPUSCULAR VOLUME 94 FL (80-99); MONOCYTES % (AUTO) 10.2 % (1.0-10.0); NEUTROPHILS % (AUTO) 60.1 % (45.0-75.0); PLATELET COUNT 124 K/UL (150-450); RED BLOOD COUNT 4.39 M/UL (4.20-5.40); RED CELL DISTRIBUTION WIDTH 15.1 % (11.6-14.8)
[2017-10-10 09:42] LABS: ALANINE AMINOTRANSFERASE 16 U/L (12-78); ALBUMIN 3.2 G/DL (3.4-5.0); ALBUMIN/GLOBULIN RATIO 0.9 (1.0-2.7); ALKALINE PHOSPHATASE 83 U/L (46-116); ANION GAP 5 mmol/L (5-15); ASPARTATE AMINO TRANSFERASE 29 U/L (15-37); BILIRUBIN,TOTAL 0.8 MG/DL (0.2-1.0); BLOOD UREA NITROGEN 9 mg/dL (7-18); CALCIUM 9.2 MG/DL (8.5-10.1); CARBON DIOXIDE 30 MMOL/L (21-32); CHLORIDE 104 MMOL/L (98-107); CREATININE 0.8 MG/DL (0.55-1.30); POTASSIUM 4.6 MMOL/L (3.5-5.1); SODIUM 139 MMOL/L (136-145)
[2017-10-10 12:00] VITALS: BP 122/69
[2017-10-10 16:00] VITALS: BP 120/71
--- NOTE | 2017-10-10 16:33 | History & Physical ---
History and Physical History & Physicial seen and examined. full dictation completed Roderick Mckee MD Oct 10, 2017 16:33
--- NOTE | 2017-10-10 16:37 | General Progress Note ---
Assessment/Plan Status: stable Assessment/Plan 1- Acute Lumbar pain, Status post Kyphoplasty 2- Afib- rate/rythm sinus 3- GI/DVT prophylaxia Plan: MRI of Lumbar/thoracic spine resume home meds Neuro consult Psych consult Subjective ROS Limited/Unobtainable: No Constitutional: Reports: no symptoms HEENT: Reports: no symptoms Cardiovascular: Reports: no symptoms Allergies: Coded Allergies: ASPIRIN (Verified Allergy, Unknown, 10/09/17) Objective Last 24 Hour Vital Signs Date Time Temp Pulse Resp B/P (MAP) Pulse Ox O2 Delivery O2 Flow Rate FiO2 10/10/17 16:00 98.1 63 16 120/71 92 Room Air 98.1 10/10/17 12:00 98.2 63 16 122/69 92 Room Air 98.2 10/10/17 08:57 83 120/61 10/10/17 08:00 97.1 62 16 110/61 96 Room Air 97.1 10/10/17 04:00 98.4 69 19 122/58 91 Room Air 98.4 10/10/17 00:00 98.1 73 20 122/54 97 98.1 10/09/17 20:00 98.0 83 20 106/60 96 98.0 Intake and Output 10/09/17 10/10/17 19:00 07:00 Intake Total 0 ml 440 ml Balance 0 ml 440 ml Intake Oral 0 ml 440 ml # Voids 1 1 Laboratory Tests 10/10/17 06:45: White Blood Count 5.0, Red Blood Count 4.39, Hemoglobin 14.4, Hematocrit 41.1, Mean Corpuscular Volume 94, Mean Corpuscular Hemoglobin 32.9H, Mean Corpuscular Hemoglobin Concent 35.2, Red Cell Distribution Width 15.1H, Platelet Count 124L , Mean Platelet Volume 7.9, Neutrophils (%) (Auto) 60.1, Lymphocytes (%) (Auto) 27.0, Monocytes (%) (Auto) 10.2H, Eosinophils (%) (Auto) 1.7, Basophils (%) ( Auto) 1.0, Sodium Level 139, Potassium Level 4.6, Chloride Level 104, Carbon Dioxide Level 30, Anion Gap 5, Blood Urea Nitrogen 9, Creatinine 0.8, Estimat Glomerular Filtration Rate , Glucose Level 75, Calcium Level 9.2, Total Bilirubin 0.8, Aspartate Amino Transf (AST/SGOT) 29, Alanine Aminotransferase ( ALT/SGPT) 16, Alkaline Phosphatase 83, Total Protein 6.9, Albumin 3.2L, Globulin 3.7, Albumin/Globulin Ratio 0.9L Height (Feet): 5 Height (Inches): 4.00 Weight (Pounds): 134 General Appearance: WD/WN EENT: PERRL/EOMI Neck: supple Cardiovascular: normal rate Respiratory/Chest: lungs clear Abdomen: soft Extremities: other - decreased ROM in LE secondary to pain in LB 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
--- NOTE | 2017-10-10 17:45 | History and Physical Report ---
DATE OF ADMISSION: 10/09/2017 SOURCE OF INFORMATION: Patient and EMR. HISTORY OF PRESENT ILLNESS: The patient is a pleasant 82-year-old female with prior history of spinal compression deformity fracture status post kyphoplasty. The patient reported that for the last one or three days, the pain is gradually worsening. The patient describes the pain as sharp and localized. Denies any sensory problems. Denies any radiation of pain to the lower extremity. Denies any focal motor deficits. At the time of evaluation, the patient denies any diarrhea, constipation, nausea, or vomitus. PAST SURGICAL HISTORY: Hysterectomy, appendectomy, and cholecystectomy. CURRENT HOSPITAL MEDICATIONS: Reviewed and reconciled including lidocaine patch and gabapentin. ALLERGIES: Aspirin. SOCIAL HISTORY: The patient lives by herself with the boyfriend. The patient denies history of illicit drug abuse, smoking, or alcohol abuse. The patient has no children. PHYSICAL EXAMINATION: VITAL SIGNS: Blood pressure 120/80, temperature 98.2, pulse rate 60, temperature 98.4, and respiratory rate 18. HEAD AND NECK: Atraumatic and normocephalic. CHEST: Clear to auscultation. No wheezes. No crackles. HEART: S1 and S2. Regular rate and rhythm. No S3. No S4. ABDOMEN: Soft. No organomegaly. MUSCULOSKELETAL: No gross lateralized motor deficit. NEUROLOGIC: The patient is awake, alert, and oriented x3. PSYCHIATRIC: Mood and affect is appropriate and normal. LABORATORY DATA: Labs dated 10/09/2017 shows WBC 7.2, hemoglobin 15.7, and platelets of 144,000. Sodium of 139, potassium 4.2, BUN 12, and creatinine 0.9, and glucose 114. Spinal CT scan shows grade 1 spondylolisthesis at L5-S1 and osteoporosis. ASSESSMENT: 1. Acute on chronic low back pain in a patient with a recent history of procedure (kyphoplasty). 2. Atrial fibrillation, controlled rate. 3. Gastrointestinal and deep venous thrombosis prophylaxes. PLAN OF CARE: I will request the MRI of the thoracic spine. Neurology and Pain Management have been consulted and notified. Roderick Mckee M.D. DR: MOISES JOB#: [id number] CC:
[2017-10-10 20:00] VITALS: BP 134/60
--- NOTE | 2017-10-10 20:41 | Consultation ---
Consult Note Consult Note NEUROLOGY CONSULTATION: Full note dictated #[id number] 82 y/o, RH, HF with PH of hysterectomy, appendectomy, cholecystectomy and T10 compression fracture treated with kyphoplasty 4 months ago. For the last week or so she has had sharp pain in the same area where she had the fracture. ON EXAM: Tender area in T9-10 area. Mild memory problems. Mild HCF problems Mild LE spasticity. Pathologically brisk knee jerks. Unsteadiness on feet. IMPRESSION: Pain in T9-10 area - evaluate for path. Mild myelopathic signs involving BLE REC: Await results of MRI of T spine Place Lidoderm patch over painful area - not the lumbar spine. Daniel Armstrong M.D., M.S.P.Leana. DANIEL ARMSTRONG Oct 10, 2017 20:41
--- NOTE | 2017-10-10 22:45 | Consultation ---
DATE OF CONSULTATION: 10/10/2017 PAIN MANAGEMENT CONSULTATION CONSULTING PHYSICIAN: Otilia Dumas M.D. REFERRING PHYSICIAN: Roderick Mckee M.D. PHYSICIAN VIBRATING SCREED OPERATOR: Kristen Hays CHIEF COMPLAINT: Back pain. HISTORY OF PRESENT ILLNESS: This is an 82-year-old female, who is being seen on the Med/Surg floor of [facility] for initial comprehensive pain management. The patient is reporting that she has been having back pain for the past three weeks reporting that three weeks ago had a compression fracture in the thoracic spine, status post kyphoplasty two weeks. The pain had gone away, however, a week ago, the pain returned, rating the pain at 8/10 and describing the pain as a sharp stabbing pain in her lower back. Upon admission, CT scan of the thoracic and lumbar spine were done. CT scan of the thoracic spine showed status post kyphoplasty T10 vertebra. Left transverse fracture of this level also noted. Per the patient pain returned two weeks ago osteoporosis and mild degenerative changes of the thoracic spine. CT scan of the lumbar spine showed a grade 1 axis spondylolisthesis at L5-S1 and no definite spondylolysis, facet arthropathy severe at this level, and moderate neural foraminal stenosis, and osteoporosis. The patient is on [place] 5/325 mg 1 tablet as needed as an outpatient with minimal pain relief. We have started her on a morphine 2 mg IV every 4 hours as needed for severe pain, which has reduced her pain from a 9 to a 3/10. She is comfortable in the bed. We were consulted so that the patient would have adequate pain control while here in the hospital. PAST MEDICAL HISTORY: Atrial fibrillation. PAST SURGICAL HISTORY: Hysterectomy. MEDICATIONS: [place] and lovastatin. ALLERGIES: No known drug allergies. SOCIAL HISTORY: Smoker. Denies alcohol and IV drug abuse. REVIEW OF SYSTEMS: Denies rash, fever, chills, sweating, dizziness, drowsiness, blurred vision, sore throat, or change in weight. No shortness of breath or chest pain. No nausea, vomiting, diarrhea, or blood in stool or urine. No bowel or bladder incontinence. No dysuria. She is complaining of back pain. PHYSICAL EXAMINATION: GENERAL: Alert, awake, and oriented x3. VITAL SIGNS: Blood pressure 122/58, heart rate is 69, oxygen saturation 91%, respiratory rate is 19, and temp is 98.4 degrees Fahrenheit. HEENT: PERRLA. NECK: Range of motion is full in all directions. No tenderness to paracervical muscles. No adenopathy. LUNGS: Clear. HEART: Regular. ABDOMEN: Benign. BACK: Range of motion is decreased in flexion and extension with tenderness to paraspinal muscles, trapezius, and rhomboid muscles. EXTREMITIES: Upper extremity and lower extremity range of motion is full in all directions. Motor is intact. No cyanosis. No clubbing. No edema. Sensory is intact. Reflexes are not obtainable. No adenopathy. ASSESSMENT AND PLAN: This is an 82-year-old female with thoracic compression fracture, status post kyphoplasty, lumbar degenerative disc disease, and lumbar spondylosis. The patient will be continued on morphine as needed. She will be started on Lidoderm patch one patch to be applied to the lower back at the site of pain, 12 hours on and 12 hours off as well as Neurontin 100 mg tablet 3 times a day. The patient was discussed with Dr. Dumas and Dr. Dumas concurred. We will follow the patient. Thank you very much for the courtesy of this consultation. Otilia Dumas M.D. NICHOLE Hays DR: AMISH JOB#: [id number] CC: DESTINY
--- NOTE | 2017-10-10 22:45 | Consultation ---
DATE OF CONSULTATION: 10/10/2017 NEUROLOGY CONSULTATION CONSULTING PHYSICIAN: Pk Armstrong M.D. REQUESTING PHYSICIAN: Roderick Mckee M.D. HISTORY: Ms. Lucina Rae is an 82-year-old, right-handed, lady, who does have a past history of a hysterectomy, appendectomy, cholecystectomy, and a T10 compression fracture, treated with kyphoplasty four months ago. For the last week or so, she has had sharp episodic pain in the same area where she had the fracture involving the thoracic spine. The pain is a sharp pain that usually lasts for a few seconds at a time and is quite distressing. She only notices the pain when she is moving around and at rest she is quite comfortable. She denies any associated weakness on one side or the other, numbness on one side or the other, problems with speech, problems with language, problems with vision, or problems controlling her bowel or bladder. PAST MEDICAL HISTORY: Significant for a hysterectomy, appendectomy, cholecystectomy, and a T10 compression fracture treated with kyphoplasty 4 months ago. FAMILY HISTORY: Nothing significant. PERSONAL HISTORY: Home: She lives with her significant other. 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 Habits: She smokes approximately half a pack of cigarettes per day and has been smoking for numerous years. She has a rare alcoholic drink. She denies use of any illicit drugs. PRESENT MEDICATIONS: Include pantoprazole, sotalol, vitamin B, Lidoderm patch, gabapentin 100 mg tid, heparin for DVT prophylaxis, DSS, morphine sulfate, MiraLAX, and Zofran. PHYSICAL EXAMINATION: GENERAL: She is a well-developed, well-nourished, pleasant lady, lying in bed, in no acute distress. VITAL SIGNS: Pulse 63 per minute, blood pressure 120/71 mmHg, respirations 16 per minute, and temperature 98.1 degrees Fahrenheit. HEAD: Normocephalic and atraumatic. NECK: No neck rigidity was observed. EENT: Benign. NEURLOGICAL EXAMINATION: MENTAL STATUS EXAMINATION: She was awake and alert. She was oriented to person, place, and time. She was able to recall 3/3 words immediately, after 1 minute and after 3 minutes on the second trial. She was able to remember presidents Trump and Obama spontaneously but needed hints to remember Stinson Micheal, and could not remember presidents prior to that. Her mathematical skills were impaired. Her visuospatial function was relatively good. SPEECH: She had no dysarthria. LANGUAGE: She had no aphasia. CRANIAL NERVE EXAMINATION: II: The visual balderrama were intact on confrontation testing. III, IV & : External ocular movements were full and the pupils 3 mm in diameter, equal, round, regular, and reactive to light. V: She had normal facial sensations, and the temporales, masseters, and pterygoids functioned normally. VII: She had normal facial expressions and no facial asymmetry. VIII: She was able to hear well bilaterally and had no nystagmus. IX: The palate moved symmetrically on phonation. X: She had no hoarseness of voice. XI: The sternocleidomastoids and trapezii functioned normally. XII: The tongue was in the midline without any fasciculations or atrophy MOTOR SYSTEM: The tone was minimally increased in both lower extremities with a mild degree of spasticity. Examination of muscle mass revealed no focal wasting. Examination of power revealed G 5/5 power in all muscle groups tested. SENSORY EXAMINATION: She had intact sensations to pinprick, light touch, and position. COORDINATION: She performed well on [id number] and [id number] testing. Romberg test could not be performed because even with eyes open when she was made to stand with feet together, she was unsteady. REFLEXES: 1++ and bilaterally symmetrical at the biceps, triceps, and brachioradialis, 3+ at both knees, and 1+ at both ankles. The plantar responses were flexor bilaterally. STANCE: She had a minimally wide-based, but stable stance. GAIT: She walked with a minimally wide-based and mildly unsteady gait. DIAGNOSTIC IMPRESSION: 1. Ms. Lucina Rae is an 82-year-old, right-handed, lady, who does have a past history of a hysterectomy, appendectomy, cholecystectomy, and a T9 compression fracture treated with a kyphoplasty approximately 4 months ago, who for the last week or so, has had a sharp pain in her back in the same area where she had a fracture in the past. 2. On neurological examination, at this time, she has an area of tenderness over her T9-T10 area, mild problems with memory, mild higher cognitive dysfunction, mild lower extremity spasticity, pathologically brisk knee jerks bilaterally, and unsteadiness on her feet. 3. The CT scan of the thoracic spine performed on 10/09/2017 reveals no "compelling evidence of acute injury." It does reveal that she is status post a kyphoplasty at the T10 level and in addition, she has a left transverse fracture at the same level. In addition, she does have osteoporosis and mild degenerative changes involving the thoracic spine. 4. The patient's history, neurological examination, and imaging studies are most compatible with discomfort in the T9-T10 area and in addition, mild myelopathic signs involving both lower extremities. RECOMMENDATIONS: 1. Agree with management thus far. 2. The patient has had an MRI of the thoracic spine performed this morning or early afternoon, but the results are still not available. I shall review them when they do become available. 3. The patient's Lidoderm patch is placed over her lumbar area and not over the painful area of the thoracic spine and thus the Lidoderm patch should be placed in the correct area. 4. Depending on the results of the MRI scan, further recommendations will be given. Thank you for entrusting me with the care of Ms. Rae. I shall follow her with you. Pk Armstrong M.D., M.S.P.H. DR: Marah JOB#: [id number] MTDD
[2017-10-11] VITALS: BP 112/61
[2017-10-11 04:00] VITALS: BP 122/61
[2017-10-11 08:00] VITALS: BP 101/50
[2017-10-11 08:25] LABS: BASOPHILS % (AUTO) 0.8 % (0.0-2.0); EOSINOPHILS % (AUTO) 1.7 % (0.0-3.0); HEMATOCRIT 41.3 % (37.0-47.0); HEMOGLOBIN 14.4 G/DL (12.0-16.0); LYMPHOCYTES % (AUTO) 25.1 % (20.0-45.0); MEAN CORPUSCULAR VOLUME 94 FL (80-99); MONOCYTES % (AUTO) 8.7 % (1.0-10.0); NEUTROPHILS % (AUTO) 63.7 % (45.0-75.0); PLATELET COUNT 122 K/UL (150-450); RED BLOOD COUNT 4.42 M/UL (4.20-5.40); RED CELL DISTRIBUTION WIDTH 14.7 % (11.6-14.8); WHITE BLOOD COUNT 5.1 K/UL (4.8-10.8)
[2017-10-11] MEDS: Vitamin D 400 INTLU TAB ORAL SCH (08:35)
[2017-10-11] MEDS: Docusate 100mg cap ORAL SCH ×2 (08:35→20:37)
[2017-10-11] MEDS: Sotalol 80mg tab ORAL SCH (08:36)
[2017-10-11] MEDS: Heparin 5000 units/ml inj SUBQ SCH ×2 (08:39→20:38)
[2017-10-11 08:46] LABS: ALANINE AMINOTRANSFERASE 17 U/L (12-78); ALBUMIN 3.1 G/DL (3.4-5.0); ALBUMIN/GLOBULIN RATIO 0.8 (1.0-2.7); ALKALINE PHOSPHATASE 82 U/L (46-116); ANION GAP 5 mmol/L (5-15); ASPARTATE AMINO TRANSFERASE 33 U/L (15-37); BILIRUBIN,TOTAL 0.9 MG/DL (0.2-1.0); BLOOD UREA NITROGEN 11 mg/dL (7-18); CALCIUM 9.1 MG/DL (8.5-10.1); CARBON DIOXIDE 32 MMOL/L (21-32); CHLORIDE 103 MMOL/L (98-107); CREATININE 0.8 MG/DL (0.55-1.30); POTASSIUM 4.2 MMOL/L (3.5-5.1); SODIUM 140 MMOL/L (136-145)
--- NOTE | 2017-10-11 08:48 | General Progress Note ---
Assessment/Plan Assessment/Plan (1) Thoracic compression Fracture s/p kyphoplasty (2) Lumbar DDD (3) Lumbar spondylosis (4) Muscle spasm Patient to be continued on Morphine and Lidoderm patch. MRI results pending D/w Dr. chaudhry and he concurred. Subjective Date patient seen: October 11, 2017 Time patient seen: 08:00 - am Allergies: Coded Allergies: ASPIRIN (Verified Allergy, Unknown, 10/09/17) Subjective REVIEW OF SYSTEMS: Denies rash, fever, chills, sweating, dizziness, drowsiness, blurred vision, sore throat, or change in weight. No shortness of breath or chest pain. No nausea, vomiting, diarrhea, or blood in stool or urine. No bowel or bladder incontinence. No dysuria. She is complaining of back pain. SUBJECTIVE: Patient is in standing and walking. Pain has greatly reduced and has been tolerated on the Morphine and Lidoderm patch. MRI was done pending results. Objective Last 24 Hour Vital Signs Date Time Temp Pulse Resp B/P (MAP) Pulse Ox O2 Delivery O2 Flow Rate FiO2 10/11/17 08:36 63 101/50 10/11/17 08:00 97.6 63 18 101/50 95 97.6 10/11/17 04:00 95.9 58 18 122/61 95 95.9 10/11/17 00:00 98.1 57 17 112/61 95 98.1 10/10/17 20:00 97.9 18 134/60 93 97.9 10/10/17 16:00 98.1 63 16 120/71 92 Room Air 98.1 10/10/17 12:00 98.2 63 16 122/69 92 Room Air 98.2 10/10/17 08:57 83 120/61 Intake and Output 10/10/17 10/11/17 19:00 07:00 Intake Total 340 ml Balance 340 ml Intake Oral 340 ml # Voids 3 Laboratory Tests 10/11/17 06:30: White Blood Count [Pending], Red Blood Count [Pending], Hemoglobin [Pending], Hematocrit [Pending], Mean Corpuscular Volume [Pending], Mean Corpuscular Hemoglobin [Pending], Mean Corpuscular Hemoglobin Concent [Pending], Red Cell Distribution Width [Pending], Platelet Count [Pending], Mean Platelet Volume [ Pending], Neutrophils (%) (Auto) [Pending], Lymphocytes (%) (Auto) [Pending], Monocytes (%) (Auto) [Pending], Eosinophils (%) (Auto) [Pending], Basophils (%) (Auto) [Pending], Sodium Level [Pending], Potassium Level [Pending], Chloride Level [Pending], Carbon Dioxide Level [Pending], Blood Urea Nitrogen [Pending], Creatinine [Pending], Estimat Glomerular Filtration Rate [Pending], Glucose Level [Pending], Calcium Level [Pending], Total Bilirubin [Pending], Aspartate Amino Transf (AST/SGOT) [Pending], Alanine Aminotransferase (ALT/SGPT) [Pending] , Alkaline Phosphatase [Pending], Total Protein [Pending], Albumin [Pending], Globulin [Pending] Height (Feet): 5 Height (Inches): 4.00 Weight (Pounds): 134 Objective GENERAL: Alert, awake, and oriented x3. HEENT: PERRLA. NECK: Range of motion is full in all directions. No tenderness to paracervical muscles. No adenopathy. LUNGS: Clear. HEART: Regular. ABDOMEN: Benign. BACK: Range of motion is decreased in flexion and extension with tenderness to paraspinal muscles, trapezius, and rhomboid muscles. EXTREMITIES: Upper extremity and lower extremity range of motion is full in all directions. Motor is intact. No cyanosis. No clubbing. No edema. Sensory is intact. Reflexes are not obtainable. No adenopathy. DEBBIE COX PShaista October 11, 2017 08:47
--- NOTE | 2017-10-11 10:30 | Diagnostic Imaging Report ---
Indication: Back pain Technique: MRI examination of the Lumbar spine was performed in a 1.5 Alisa magnet. Sequences obtained include sagittal and axial T1 and T2 fast spin echo, and sagittal STIR. Comparison: none Findings: At the upper edge of the [id number], the T11 vertebra is seen and abnormal. There is T2 hyperintense edema within the upper endplate with suggestion of some mild linear T1 hypointense signal. Findings consistent with a mild but acute fracture involving the superior endplate of the T11 vertebra, which retains normal height. This is only imaged on sagittal sequences as it is in the lower part of the thoracic spine. There is no retropulsion identified. There is no evidence of compression of the canal or cord compression. The distal part of the spinal cord appears normal with the cord terminating at about L1. Conus medullaris and cauda equina appear normal. L5-S1 shows a mild anterolisthesis. There is narrowing of the neural foramen at this level due to facet arthropathy which is moderate to severe. There is no central canal stenosis. There is no obvious pars interarticularis defect. The other lumbar levels demonstrate hypertrophied facets, but no disc herniation or central canal stenosis. No significant foraminal stenosis appreciated at any of the other lumbar levels. Bone marrow signal is otherwise normal throughout the lumbar spine. Incidental 5.5 cm cyst noted within the left kidney. 6 mm cyst noted in the right kidney. IMPRESSION: Mild, acute superior endplate fracture of the T11 vertebra. No loss of height or retropulsion. Grade 1 spondylolisthesis L5 on S1. Moderate bilateral neural foraminal stenosis due to facet arthropathy. Degenerative facet arthropathy within the lumbar spine at multiple levels. Findings discussed via telephone with Dr. Zenaida Mckee @ 10:00 AM, 10/11/2017
[2017-10-11 12:00] VITALS: BP 137/73
[2017-10-11 16:27] VITALS: BP 103/64
[2017-10-11 17:11] LABS: INR 1.8 (0.9-1.1)
--- NOTE | 2017-10-11 17:33 | General Progress Note ---
Assessment/Plan Status: stable Assessment/Plan 1. Acute compression fracture of T 11 2. Pain management 2. Atrial fibrillation, controlled rate. 3. Gastrointestinal and deep venous thrombosis prophylaxes. Plan: Acute compression fracture of T 11, amenable to Kyphoplasty Neuro note reviewed. IR consulted for Kyphoplasty Subjective ROS Limited/Unobtainable: No Neurologic/Psychiatric: Reports: other - back pain Allergies: Coded Allergies: ASPIRIN (Verified Allergy, Unknown, 10/09/17) Objective Last 24 Hour Vital Signs Date Time Temp Pulse Resp B/P (MAP) Pulse Ox O2 Delivery O2 Flow Rate FiO2 10/11/17 16:27 97.7 51 18 103/64 95 97.7 10/11/17 12:00 97.4 67 18 137/73 95 97.4 10/11/17 08:36 63 101/50 10/11/17 08:00 97.6 63 18 101/50 95 97.6 10/11/17 04:00 95.9 58 18 122/61 95 95.9 10/11/17 00:00 98.1 57 17 112/61 95 98.1 10/10/17 20:00 97.9 18 134/60 93 97.9 Intake and Output 10/10/17 10/11/17 19:00 07:00 Intake Total 340 ml Balance 340 ml Intake Oral 340 ml # Voids 3 Laboratory Tests 10/11/17 06:30: White Blood Count 5.1, Red Blood Count 4.42, Hemoglobin 14.4, Hematocrit 41.3, Mean Corpuscular Volume 94, Mean Corpuscular Hemoglobin 32.5H, Mean Corpuscular Hemoglobin Concent 34.7, Red Cell Distribution Width 14.7, Platelet Count 122L, Mean Platelet Volume 7.9, Neutrophils (%) (Auto) 63.7, Lymphocytes (%) (Auto) 25.1, Monocytes (%) (Auto) 8.7, Eosinophils (%) (Auto) 1.7, Basophils (%) (Auto ) 0.8, Sodium Level 140, Potassium Level 4.2, Chloride Level 103, Carbon Dioxide Level 32, Anion Gap 5, Blood Urea Nitrogen 11, Creatinine 0.8, Estimat Glomerular Filtration Rate , Glucose Level 85, Calcium Level 9.1, Total Bilirubin 0.9, Aspartate Amino Transf (AST/SGOT) 33, Alanine Aminotransferase ( ALT/SGPT) 17, Alkaline Phosphatase 82, Total Protein 6.9, Albumin 3.1L, Globulin 3.8, Albumin/Globulin Ratio 0.8L 10/11/17 15:55: Prothrombin Time 18.7H, Prothromb Time International Ratio 1.8H, Activated Partial Thromboplast Time 43H Height (Feet): 5 Height (Inches): 4.00 Weight (Pounds): 134 General Appearance: no apparent distress EENT: PERRL/EOMI Neck: supple Extremities: non-tender, other - local pain in thoracic area 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
--- NOTE | 2017-10-11 18:19 | Neurology Progress Note ---
Interim History Interim History Interim History Ms. Rae feels better today. The back pain is much better. It is less severe and less frequent. She denies any new neurologic symptoms. She has been able to walk with no problems. Review of Systems Neuro Review of Systems Benign. Objective Physical Exam Last Vital Signs Date Time Temp Pulse Resp B/P (MAP) Pulse Ox O2 Delivery O2 Flow Rate FiO2 10/11/17 16:27 97.7 51 18 103/64 95 97.7 10/10/17 16:00 Room Air Laboratory Tests Test 10/11/17 06:30 10/11/17 15:55 White Blood Count 5.1 K/UL (4.8-10.8) Red Blood Count 4.42 M/UL (4.20-5.40) Hemoglobin 14.4 G/DL (12.0-16.0) Hematocrit 41.3 % (37.0-47.0) Mean Corpuscular Volume 94 FL (80-99) Mean Corpuscular Hemoglobin 32.5 PG (27.0-31.0) H Mean Corpuscular Hemoglobin Concent 34.7 G/DL (32.0-36.0) Red Cell Distribution Width 14.7 % (11.6-14.8) Platelet Count 122 K/UL (150-450) L Mean Platelet Volume 7.9 FL (6.5-10.1) Neutrophils (%) (Auto) 63.7 % (45.0-75.0) Lymphocytes (%) (Auto) 25.1 % (20.0-45.0) Monocytes (%) (Auto) 8.7 % (1.0-10.0) Eosinophils (%) (Auto) 1.7 % (0.0-3.0) Basophils (%) (Auto) 0.8 % (0.0-2.0) Sodium Level 140 MMOL/L (136-145) Potassium Level 4.2 MMOL/L (3.5-5.1) Chloride Level 103 MMOL/L (98-107) Carbon Dioxide Level 32 MMOL/L (21-32) Anion Gap 5 mmol/L (5-15) Blood Urea Nitrogen 11 mg/dL (7-18) Creatinine 0.8 MG/DL (0.55-1.30) Estimat Glomerular Filtration Rate mL/min (>60) Glucose Level 85 MG/DL (74-106) Calcium Level 9.1 MG/DL (8.5-10.1) Total Bilirubin 0.9 MG/DL (0.2-1.0) Aspartate Amino Transf (AST/SGOT) 33 U/L (15-37) Alanine Aminotransferase (ALT/SGPT) 17 U/L (12-78) Alkaline Phosphatase 82 U/L (46-116) Total Protein 6.9 G/DL (6.4-8.2) Albumin 3.1 G/DL (3.4-5.0) L Globulin 3.8 g/dL Albumin/Globulin Ratio 0.8 (1.0-2.7) L Prothrombin Time 18.7 SEC (9.30-11.50) H Prothromb Time International Ratio 1.8 (0.9-1.1) H Activated Partial Thromboplast Time 43 SEC (23-33) H Neurologic Exam Objective PHYSICAL EXAMINATION: GENERAL: She is a well-developed, well-nourished, pleasant lady, lying in bed, in no acute distress. HEAD: Normocephalic and atraumatic. NECK: No neck rigidity was observed. EENT: Benign. NEURLOGICAL EXAMINATION: MENTAL STATUS EXAMINATION: She was awake and alert. She was oriented to person, place, and time. She was able to recall 3/3 words immediately, after 1 minute and after 3 minutes on the second trial. She was able to remember presidents Trump and Obama spontaneously but needed hints to remember Stinson Micheal, and could not remember presidents prior to that. Her mathematical skills were impaired. Her visuospatial function was relatively good. SPEECH: She had no dysarthria. LANGUAGE: She had no aphasia. CRANIAL NERVE EXAMINATION: II: The visual balderrama were intact on confrontation testing. III, IV & : External ocular movements were full and the pupils 3 mm in diameter, equal, round, regular, and reactive to light. V: She had normal facial sensations, and the temporales, masseters, and pterygoids functioned normally. VII: She had normal facial expressions and no facial asymmetry. VIII: She was able to hear well bilaterally and had no nystagmus. IX: The palate moved symmetrically on phonation. X: She had no hoarseness of voice. XI: The sternocleidomastoids and trapezii functioned normally. XII: The tongue was in the midline without any fasciculations or atrophy MOTOR SYSTEM: The tone was minimally increased in both lower extremities with a mild degree of spasticity. Examination of muscle mass revealed no focal wasting. Examination of power revealed G 5/5 power in all muscle groups tested. SENSORY EXAMINATION: She had intact sensations to pinprick, light touch, and position. COORDINATION: She performed well on eomilj-sg-kjeo and vqhz-vg-[id number] testing. Romberg test could not be performed because even with eyes open when she was made to stand with feet together, she was unsteady. REFLEXES: 1++ and bilaterally symmetrical at the biceps, triceps, and brachioradialis, 2++ at both knees, and 1+ at both ankles. The plantar responses were flexor bilaterally. STANCE: She had a minimally wide-based, but stable stance. GAIT: She walked with a minimally wide-based but steady gait. Impression/Recommendations Diagnostic Impression 1. Ms. Lucina Rae is an 82-year-old, right-handed, lady, who does have a past history of a hysterectomy, appendectomy, cholecystectomy, and a T10 compression fracture treated with a kyphoplasty approximately 4 months ago , who for the last week or so, has had a sharp pain in her back in the same area where she had a fracture in the past. 2. She feels better today. The back pain is much better. It is less severe and less frequent. She denies any new neurologic symptoms. She has been able to walk with no problems. 3. On neurological examination, at this time, she has no point tenderness over her spine, mild problems with memory, mild higher cognitive dysfunction, mild lower extremity spasticity, brisk knee jerks bilaterally, and mild unsteadiness on her feet. 4. The CT scan of the thoracic spine performed on 10/09/2017 reveals no "compelling evidence of acute injury." It does reveal that she is status post a kyphoplasty at the T10 level and in addition, she has a left transverse fracture at the same level. In addition, she does have osteoporosis and mild degenerative changes involving the thoracic spine. 5. The MRI of the thoracic spine done on 10/11/17 revealed "Mild, acute superior endplate fracture of the T11 vertebra. No loss of height or retropulsion." 6. The patient's history, neurological examination, and imaging studies are most compatible with discomfort in the lower thoracic area due to T11 superior endplate fracture. She is much more comfortable today. Recommendations 1. Continue present management. 2. Conservative management of T 11 fracture. 3. Evaluate for osteoporosis. Daniel Hernandez M.D., M.S.P.H. DANIEL HERNANDEZ October 11, 2017 18:19
[2017-10-11 20:00] VITALS: BP 95/57
[2017-10-12] VITALS: BP 133/57
[2017-10-12 04:00] VITALS: BP 125/63
[2017-10-12 08:00] VITALS: BP 98/54
--- NOTE | 2017-10-12 08:41 | General Progress Note ---
Assessment/Plan Assessment/Plan (1) Thoracic compression Fracture s/p kyphoplasty (2) Lumbar DDD (3) Lumbar spondylosis (4) Muscle spasm Patient to be continued on Morphine and Lidoderm patch. D/w Dr. chaudhry and he concurred. Subjective Date patient seen: October 12, 2017 Time patient seen: 07:00 - am Allergies: Coded Allergies: ASPIRIN (Verified Allergy, Unknown, 10/09/17) Subjective REVIEW OF SYSTEMS: Denies rash, fever, chills, sweating, dizziness, drowsiness, blurred vision, sore throat, or change in weight. No shortness of breath or chest pain. No nausea, vomiting, diarrhea, or blood in stool or urine. No bowel or bladder incontinence. No dysuria. She is complaining of back pain. SUBJECTIVE: Patient in bed and reports that the pain has been tolerated well on the Morphine and Lidoderm patch. MRI was reviewed and d/w pt. Objective Last 24 Hour Vital Signs Date Time Temp Pulse Resp B/P (MAP) Pulse Ox O2 Delivery O2 Flow Rate FiO2 10/12/17 04:00 97.6 57 18 125/63 97 97.6 10/12/17 00:00 98.1 52 19 133/57 92 98.1 10/11/17 20:00 97.6 53 19 95/57 96 97.6 10/11/17 16:27 97.7 51 18 103/64 95 97.7 10/11/17 12:00 97.4 67 18 137/73 95 97.4 Intake and Output 10/11/17 10/12/17 19:00 07:00 Intake Total 560 ml 240 ml Balance 560 ml 240 ml Intake Oral 560 ml 240 ml # Voids 4 2 # Bowel Movements 1 Laboratory Tests 10/11/17 15:55: Prothrombin Time 18.7H, Prothromb Time International Ratio 1.8H, Activated Partial Thromboplast Time 43H Height (Feet): 5 Height (Inches): 4.00 Weight (Pounds): 134 Objective GENERAL: Alert, awake, and oriented x3. HEENT: PERRLA. NECK: Range of motion is full in all directions. No tenderness to paracervical muscles. No adenopathy. LUNGS: Clear. HEART: Regular. ABDOMEN: Benign. BACK: Range of motion is decreased in flexion and extension with tenderness to paraspinal muscles, trapezius, and rhomboid muscles. EXTREMITIES: Upper extremity and lower extremity range of motion is full in all directions. Motor is intact. No cyanosis. No clubbing. No edema. Sensory is intact. Reflexes are not obtainable. No adenopathy. Procedure: MRI L Spine no Contrast Indication: Back pain Technique: MRI examination of the Lumbar spine was performed in a 1.5 Alisa magnet. Sequences obtained include sagittal and axial T1 and T2 fast spin echo, and sagittal STIR. Comparison: none Findings: At the upper edge of the [id number], the T11 vertebra is seen and abnormal. There is T2 hyperintense edema within the upper endplate with suggestion of some mild linear T1 hypointense signal. Findings consistent with a mild but acute fracture involving the superior endplate of the T11 vertebra, which retains normal height. This is only imaged on sagittal sequences as it is in the lower part of the thoracic spine. There is no retropulsion identified. There is no evidence of compression of the canal or cord compression. The distal part of the spinal cord appears normal with the cord terminating at about L1. Conus medullaris and cauda equina appear normal. L5-S1 shows a mild anterolisthesis. There is narrowing of the neural foramen at this level due to facet arthropathy which is moderate to severe. There is no central canal stenosis. There is no obvious pars interarticularis defect. The other lumbar levels demonstrate hypertrophied facets, but no disc herniation or central canal stenosis. No significant foraminal stenosis appreciated at any of the other lumbar levels. Bone marrow signal is otherwise normal throughout the lumbar spine. Incidental 5.5 cm cyst noted within the left kidney. 6 mm cyst noted in the right kidney. IMPRESSION: Mild, acute superior endplate fracture of the T11 vertebra. No loss of height or retropulsion. Grade 1 spondylolisthesis L5 on S1. Moderate bilateral neural foraminal stenosis due to facet arthropathy. Degenerative facet arthropathy within the lumbar spine at multiple levels. DEBBIE COX October 12, 2017 08:41
[2017-10-12] MEDS ORDERED: Sodium Chloride 500ML 500 ML IV ONE (08:45)
[2017-10-12] MEDS: Sotalol 80mg tab ORAL SCH ×3 (09:00→20:40)
[2017-10-12] MEDS: Heparin 5000 units/ml inj SUBQ SCH (09:00)
[2017-10-12] MEDS: Vitamin D 400 INTLU TAB ORAL SCH (09:05)
[2017-10-12] MEDS: Docusate 100mg cap ORAL SCH ×2 (09:05→20:41)
[2017-10-12 09:18] LABS: BASOPHILS % (AUTO) 0.8 % (0.0-2.0); EOSINOPHILS % (AUTO) 1.6 % (0.0-3.0); HEMATOCRIT 39.8 % (37.0-47.0); HEMOGLOBIN 13.9 G/DL (12.0-16.0); LYMPHOCYTES % (AUTO) 28.8 % (20.0-45.0); MEAN CORPUSCULAR VOLUME 93 FL (80-99); NEUTROPHILS % (AUTO) 60.7 % (45.0-75.0); PLATELET COUNT 127 K/UL (150-450); RED BLOOD COUNT 4.28 M/UL (4.20-5.40); RED CELL DISTRIBUTION WIDTH 15.1 % (11.6-14.8); WHITE BLOOD COUNT 4.5 K/UL (4.8-10.8)
[2017-10-12 09:37] LABS: ALANINE AMINOTRANSFERASE 19 U/L (12-78); ALBUMIN/GLOBULIN RATIO 0.8 (1.0-2.7); ALKALINE PHOSPHATASE 78 U/L (46-116); ANION GAP 6 mmol/L (5-15); ASPARTATE AMINO TRANSFERASE 33 U/L (15-37); BILIRUBIN,TOTAL 0.9 MG/DL (0.2-1.0); BLOOD UREA NITROGEN 13 mg/dL (7-18); CARBON DIOXIDE 30 MMOL/L (21-32); CHLORIDE 106 MMOL/L (98-107); CREATININE 0.8 MG/DL (0.55-1.30); POTASSIUM 4.1 MMOL/L (3.5-5.1); SODIUM 142 MMOL/L (136-145)
[2017-10-12 11:36] VITALS: BP 108/61
[2017-10-12] MEDS ORDERED: Morphine Sulfate 4mg/ml Inj IVP PRN ×4 (12:00→20:15)
--- NOTE | 2017-10-12 12:54 | Cardiac Electrophysiology PN ---
Subjective Subjective [id number] Objective Last 24 Hour Vital Signs Date Time Temp Pulse Resp B/P (MAP) Pulse Ox O2 Delivery O2 Flow Rate FiO2 10/12/17 11:36 98.0 46 16 108/61 98 98.0 10/12/17 09:00 43 98/54 10/12/17 08:00 97.7 43 16 98/54 96 97.7 10/12/17 04:00 97.6 57 18 125/63 97 97.6 10/12/17 00:00 98.1 52 19 133/57 92 98.1 10/11/17 20:00 97.6 53 19 95/57 96 97.6 10/11/17 16:27 97.7 51 18 103/64 95 97.7 Intake and Output 10/11/17 10/12/17 19:00 07:00 Intake Total 560 ml 240 ml Balance 560 ml 240 ml Intake Oral 560 ml 240 ml # Voids 4 2 # Bowel Movements 1 Laboratory Tests Test 10/11/17 15:55 10/12/17 06:50 Prothrombin Time 18.7 SEC (9.30-11.50) H Prothromb Time International Ratio 1.8 (0.9-1.1) H Activated Partial Thromboplast Time 43 SEC (23-33) H White Blood Count 4.5 K/UL (4.8-10.8) L Red Blood Count 4.28 M/UL (4.20-5.40) Hemoglobin 13.9 G/DL (12.0-16.0) Hematocrit 39.8 % (37.0-47.0) Mean Corpuscular Volume 93 FL (80-99) Mean Corpuscular Hemoglobin 32.5 PG (27.0-31.0) H Mean Corpuscular Hemoglobin Concent 34.9 G/DL (32.0-36.0) Red Cell Distribution Width 15.1 % (11.6-14.8) H Platelet Count 127 K/UL (150-450) L Mean Platelet Volume 8.5 FL (6.5-10.1) Neutrophils (%) (Auto) 60.7 % (45.0-75.0) Lymphocytes (%) (Auto) 28.8 % (20.0-45.0) Monocytes (%) (Auto) 8.0 % (1.0-10.0) Eosinophils (%) (Auto) 1.6 % (0.0-3.0) Basophils (%) (Auto) 0.8 % (0.0-2.0) Sodium Level 142 MMOL/L (136-145) Potassium Level 4.1 MMOL/L (3.5-5.1) Chloride Level 106 MMOL/L (98-107) Carbon Dioxide Level 30 MMOL/L (21-32) Anion Gap 6 mmol/L (5-15) Blood Urea Nitrogen 13 mg/dL (7-18) Creatinine 0.8 MG/DL (0.55-1.30) Estimat Glomerular Filtration Rate mL/min (>60) Glucose Level 83 MG/DL (74-106) Calcium Level 9.0 MG/DL (8.5-10.1) Total Bilirubin 0.9 MG/DL (0.2-1.0) Aspartate Amino Transf (AST/SGOT) 33 U/L (15-37) Alanine Aminotransferase (ALT/SGPT) 19 U/L (12-78) Alkaline Phosphatase 78 U/L (46-116) Troponin I 0.027 ng/mL (0.000-0.056) Total Protein 6.8 G/DL (6.4-8.2) Albumin 3.0 G/DL (3.4-5.0) L Globulin 3.8 g/dL Albumin/Globulin Ratio 0.8 (1.0-2.7) L Microbiology Date/Time Source Procedure Growth Status 10/09/17 16:00 Nasal Nares MRSA Culture - Final NO METHICILLIN RESISTANT STAPH AUREUS... Complete 10/09/17 16:00 Rectum VRE Culture - Final NO VANCOMYCIN RESISTANT ENTEROCOCCUS ... Complete Haim Sesay MD October 12, 2017 12:54
[2017-10-12 14:14] LABS: INR 1.2 (0.9-1.1)
[2017-10-12] MEDS ORDERED: Miralax 17gm pkt ORAL PRN (14:30)
--- NOTE | 2017-10-12 15:38 | Cardiology Report ---
APPROVED REPORT EXAM: Two-dimensional and M-mode echocardiogram with Doppler and color Doppler. INDICATION Atrial Fibrillation M-Mode DIMENSIONS IVSd1.3 (0.7-1.1cm)Left Atrium (MM)3.8 (1.6-4.0cm) LVDd4.3 (3.5-5.6cm)Aortic Root3.2 (2.0-3.7cm) PWd1.0 (0.7-1.1cm)Aortic Cusp Exc.1.4 (1.5-2.0cm) LVDs1.6 (2.5-4.0cm) PWs1.9 cm Technically difficult study due to poor pt's breathing. Normal left ventricular chamber size, systolic function and wall motion to extent visualized. Left ventricular ejection fraction estimated to be 60-65%. No evidence of left ventricular hypertrophy by 2-D. No evidence of pericardial effusion. All other cardiac chamber sizes are within normal limits. Mild focal aortic valve sclerosis with adequate cusp excursion. Mildly thickened mitral valve leaflets with normal excursion. Mild mitral annulus and aortic root calcification. Normal pulmonic valve structure. Normal tricuspid valve structure. IVC at normal size and collapsing with respiration. A color flow and spectral Doppler study was performed and revealed: Trace aortic insufficiency. Mild mitral regurgitation. Can not determine left ventricular diastolic function by mitral diastolic velocities due to atrial fibrillation. Mild tricuspid regurgitation. Tricuspid systolic velocities suggests peak right ventricular systolic pressure of 35 mmHg, consistent with mild pulmonary hypertension. Mild pulmonic regurgitation present.
[2017-10-12 16:00] VITALS: BP 117/56
--- NOTE | 2017-10-12 16:24 | General Progress Note ---
Assessment/Plan Status: stable Assessment/Plan 1. Acute compression fracture of T 11 2. Pain management 2. Atrial fibrillation, controlled rate. 3. Gastrointestinal and deep venous thrombosis prophylaxes. 4. New incidence of acute low BP and Low [place]: likely iatrogenic Plan: Acute compression fracture of T 11, amenable to Kyphoplasty Neuro note reviewed. IR consulted for Kyphoplasty Patient refused doing Kyphoplasty New incidence of acute low BP and Low [place] Cardiology consulted transfer to Tele Subjective Constitutional: Reports: other - back pain Cardiovascular: Reports: no symptoms Respiratory: Reports: no symptoms Allergies: Coded Allergies: ASPIRIN (Verified Allergy, Unknown, 10/09/17) Objective Last 24 Hour Vital Signs Date Time Temp Pulse Resp B/P (MAP) Pulse Ox O2 Delivery O2 Flow Rate FiO2 10/12/17 16:00 61 10/12/17 16:00 97.9 57 16 117/56 94 Room Air 97.9 10/12/17 12:00 66 10/12/17 11:36 98.0 46 16 108/61 98 98.0 10/12/17 09:00 43 98/54 10/12/17 08:00 97.7 43 16 98/54 96 97.7 10/12/17 04:00 97.6 57 18 125/63 97 97.6 10/12/17 00:00 98.1 52 19 133/57 92 98.1 10/11/17 20:00 97.6 53 19 95/57 96 97.6 10/11/17 16:27 97.7 51 18 103/64 95 97.7 Intake and Output 10/11/17 10/12/17 19:00 07:00 Intake Total 560 ml 240 ml Balance 560 ml 240 ml Intake Oral 560 ml 240 ml # Voids 4 2 # Bowel Movements 1 Laboratory Tests 10/12/17 06:50: White Blood Count 4.5L, Red Blood Count 4.28, Hemoglobin 13.9, Hematocrit 39.8, Mean Corpuscular Volume 93, Mean Corpuscular Hemoglobin 32.5H, Mean Corpuscular Hemoglobin Concent 34.9, Red Cell Distribution Width 15.1H, Platelet Count 127L , Mean Platelet Volume 8.5, Neutrophils (%) (Auto) 60.7, Lymphocytes (%) (Auto) 28.8, Monocytes (%) (Auto) 8.0, Eosinophils (%) (Auto) 1.6, Basophils (%) (Auto ) 0.8, Sodium Level 142, Potassium Level 4.1, Chloride Level 106, Carbon Dioxide Level 30, Anion Gap 6, Blood Urea Nitrogen 13, Creatinine 0.8, Estimat Glomerular Filtration Rate , Glucose Level 83, Calcium Level 9.0, Total Bilirubin 0.9, Aspartate Amino Transf (AST/SGOT) 33, Alanine Aminotransferase ( ALT/SGPT) 19, Alkaline Phosphatase 78, Troponin I 0.027, Total Protein 6.8, Albumin 3.0L, Globulin 3.8, Albumin/Globulin Ratio 0.8L 10/12/17 13:15: Prothrombin Time 12.6H, Prothromb Time International Ratio 1.2H Height (Feet): 5 Height (Inches): 4.00 Weight (Pounds): 134 General Appearance: no apparent distress EENT: PERRL/EOMI Neck: supple Cardiovascular: normal rate Respiratory/Chest: lungs clear Abdomen: soft Extremities: other - tendernss in Lower Back Neurologic: jig inspector II-XII grossly normal Roderick Mckee MD October 12, 2017 16:24
[2017-10-12] MEDS ORDERED: Warfarin Sodium 2.5mg ORAL ONE (17:00)
[2017-10-12 20:00] VITALS: BP 107/56
--- NOTE | 2017-10-12 20:43 | Neurology Progress Note ---
Interim History Interim History Interim History Ms. Rae feels about the same as yesterday. The back pain still bothersome. It is felt when she moves. She is comfortable at rest. She denies any new neurologic symptoms. She has been able to walk with no problems. Review of Systems Neuro Review of Systems Benign. Objective Physical Exam Last Vital Signs Date Time Temp Pulse Resp B/P (MAP) Pulse Ox O2 Delivery O2 Flow Rate FiO2 10/12/17 16:00 61 10/12/17 16:00 97.9 16 117/56 94 Room Air 97.9 Laboratory Tests Test 10/12/17 06:50 10/12/17 13:15 White Blood Count 4.5 K/UL (4.8-10.8) L Red Blood Count 4.28 M/UL (4.20-5.40) Hemoglobin 13.9 G/DL (12.0-16.0) Hematocrit 39.8 % (37.0-47.0) Mean Corpuscular Volume 93 FL (80-99) Mean Corpuscular Hemoglobin 32.5 PG (27.0-31.0) H Mean Corpuscular Hemoglobin Concent 34.9 G/DL (32.0-36.0) Red Cell Distribution Width 15.1 % (11.6-14.8) H Platelet Count 127 K/UL (150-450) L Mean Platelet Volume 8.5 FL (6.5-10.1) Neutrophils (%) (Auto) 60.7 % (45.0-75.0) Lymphocytes (%) (Auto) 28.8 % (20.0-45.0) Monocytes (%) (Auto) 8.0 % (1.0-10.0) Eosinophils (%) (Auto) 1.6 % (0.0-3.0) Basophils (%) (Auto) 0.8 % (0.0-2.0) Sodium Level 142 MMOL/L (136-145) Potassium Level 4.1 MMOL/L (3.5-5.1) Chloride Level 106 MMOL/L (98-107) Carbon Dioxide Level 30 MMOL/L (21-32) Anion Gap 6 mmol/L (5-15) Blood Urea Nitrogen 13 mg/dL (7-18) Creatinine 0.8 MG/DL (0.55-1.30) Estimat Glomerular Filtration Rate mL/min (>60) Glucose Level 83 MG/DL (74-106) Calcium Level 9.0 MG/DL (8.5-10.1) Total Bilirubin 0.9 MG/DL (0.2-1.0) Aspartate Amino Transf (AST/SGOT) 33 U/L (15-37) Alanine Aminotransferase (ALT/SGPT) 19 U/L (12-78) Alkaline Phosphatase 78 U/L (46-116) Troponin I 0.027 ng/mL (0.000-0.056) Total Protein 6.8 G/DL (6.4-8.2) Albumin 3.0 G/DL (3.4-5.0) L Globulin 3.8 g/dL Albumin/Globulin Ratio 0.8 (1.0-2.7) L Prothrombin Time 12.6 SEC (9.30-11.50) H Prothromb Time International Ratio 1.2 (0.9-1.1) H Neurologic Exam Objective PHYSICAL EXAMINATION: GENERAL: She is a well-developed, well-nourished, pleasant lady, lying in bed, in no acute distress. HEAD: Normocephalic and atraumatic. NECK: No neck rigidity was observed. EENT: Benign. NEURLOGICAL EXAMINATION: MENTAL STATUS EXAMINATION: She was awake and alert. She was oriented to person, place, and time. She was able to recall 3/3 words immediately, after 1 minute and after 3 minutes on the second trial. She was able to remember presidents Trump and Obama spontaneously but needed hints to remember Stinson Micheal, and could not remember presidents prior to that. Her mathematical skills were impaired. Her visuospatial function was relatively good. SPEECH: She had no dysarthria. LANGUAGE: She had no aphasia. CRANIAL NERVE EXAMINATION: II: The visual balderrama were intact on confrontation testing. III, IV & : External ocular movements were full and the pupils 3 mm in diameter, equal, round, regular, and reactive to light. V: She had normal facial sensations, and the temporales, masseters, and pterygoids functioned normally. VII: She had normal facial expressions and no facial asymmetry. VIII: She was able to hear well bilaterally and had no nystagmus. IX: The palate moved symmetrically on phonation. X: She had no hoarseness of voice. XI: The sternocleidomastoids and trapezii functioned normally. XII: The tongue was in the midline without any fasciculations or atrophy MOTOR SYSTEM: The tone was minimally increased in both lower extremities with a mild degree of spasticity. Examination of muscle mass revealed no focal wasting. Examination of power revealed G 5/5 power in all muscle groups tested. SENSORY EXAMINATION: She had intact sensations to pinprick, light touch, and position. COORDINATION: She performed well on amesto-xx-vycm and wxmc-sm-mbso testing. Romberg test could not be performed because even with eyes open when she was made to stand with feet together, she was unsteady. REFLEXES: 1++ and bilaterally symmetrical at the biceps, triceps, and brachioradialis, 2++ at both knees, and 1+ at both ankles. The plantar responses were flexor bilaterally. STANCE: She had a minimally wide-based, but stable stance. GAIT: She walked with a minimally wide-based but steady gait. Impression/Recommendations Diagnostic Impression 1. Ms. Lucina Rae is an 82-year-old, right-handed, lady, who does have a past history of a hysterectomy, appendectomy, cholecystectomy, and a T10 compression fracture treated with a kyphoplasty approximately 4 months ago , who for the last week or so, has had a sharp pain in her back in the same area where she had a fracture in the past. 2. She feels about the same as yesterday. The back pain is about the same. She denies any new neurologic symptoms. She has been able to walk with no problems. 3. On neurological examination, at this time, she has no point tenderness over her spine, mild problems with memory, mild higher cognitive dysfunction, mild lower extremity spasticity, brisk knee jerks bilaterally, and mild unsteadiness on her feet. 4. The CT scan of the thoracic spine performed on 10/09/2017 reveals no "compelling evidence of acute injury." It does reveal that she is status post a kyphoplasty at the T10 level and in addition, she has a left transverse fracture at the same level. In addition, she does have osteoporosis and mild degenerative changes involving the thoracic spine. 5. The MRI of the thoracic spine done on 10/11/17 revealed "Mild, acute superior endplate fracture of the T11 vertebra. No loss of height or retropulsion." 6. The patient's history, neurological examination, and imaging studies are most compatible with discomfort in the lower thoracic area due to T11 superior endplate fracture. She is about the same as yesterday. Recommendations 1. Continue present management. 2. Conservative management of T 11 fracture. 3. Evaluate for osteoporosis. Daniel Hernandez M.D., M.S.P.H. DANIEL HERNANDEZ October 12, 2017 20:43
--- NOTE | 2017-10-12 23:45 | Consultation ---
DATE OF CONSULTATION: 10/12/2017 CARDIOLOGY CONSULTATION CONSULTING PHYSICIAN: Haim Sesay M.D. REFERRING PHYSICIAN: Roderick Mckee M.D. REASON FOR CONSULTATION: Bradycardia in a patient with history of atrial fibrillation. HISTORY OF PRESENT ILLNESS: The patient is an 82-year-old lady with history of spinal compression deformity, status post kyphoplasty, who presents to the hospital with worsening of the back pain. The patient was initially admitted to a non-monitored bed, however, noted to have profound bradycardia with a heart rate in the 30s. The patient was transferred to the telemetry unit after an EKG was performed, which showed sinus bradycardia with frequent PVCs and nonspecific T-wave abnormality. A Cardiology consultation was requested for further evaluation and management. PAST MEDICAL HISTORY: 1. Hypertension. 2. Paroxysmal atrial fibrillation. 3. History of hysterectomy. 4. Cholecystectomy. 5. Appendectomy. ALLERGIES: She is allergic to aspirin. SOCIAL HISTORY: She lives by herself. Does not smoke or drink alcohol or use illicit drugs. Has no children. REVIEW OF SYSTEMS: Review of systems was performed and was negative other than what was mentioned in the history of present illness. PHYSICAL EXAMINATION: VITAL SIGNS: Blood pressure is 98/54, pulse is 43, respirations 18, and she is afebrile. HEAD AND NECK: Showed no JVD or carotid bruits. LUNGS: Clear. CARDIOVASCULAR: Shows bradycardic S1 and S2 with no gallop or murmur. ABDOMEN: Soft. EXTREMITIES: No pitting edema. LABORATORY DATA: Her labs show white count of 4.5, hematocrit 13.9, hematocrit 39.8, and platelet count of 127,000. Sodium 142, potassium is 4.1, BUN of 13, creatinine 0.8, and glucose of 83. Troponin is negative. INR is 1.8. ASSESSMENT AND PLAN: 1. Paroxysmal atrial fibrillation. The patient is on sotalol 80 mg daily. I will decrease to 40 mg b.i.d. in view of bradycardic episodes. The patient also is placed on Coumadin for anticoagulation purposes. 2. T10 compression fractures, status post kyphoplasty about four months ago. CT of the thoracic spine on 10/09/2017 showed no compelling evidence of acute injury. MRI of the thoracic spine on 10/11/2017 showed mild acute superior fracture of the T11 vertebra with no loss of retropulsion. Plan is conservative management of T11 fracture per Dr. Armstrong. Thank you very much, Dr. Mckee, for allowing me to participate in the care of this patient. Please do not hesitate to contact me for any questions regarding my evaluation. Haim Sesay M.D. DR: JOVANI JOB#: [id number] CC:
[2017-10-13 01:00] VITALS: BP 106/57
[2017-10-13 04:00] VITALS: BP 111/57
[2017-10-13 07:27] LABS: BASOPHILS % (AUTO) 1.2 % (0.0-2.0); HEMATOCRIT 39.5 % (37.0-47.0); HEMOGLOBIN 13.8 G/DL (12.0-16.0); LYMPHOCYTES % (AUTO) 29.8 % (20.0-45.0); MEAN CORPUSCULAR VOLUME 92 FL (80-99); MONOCYTES % (AUTO) 8.9 % (1.0-10.0); PLATELET COUNT 121 K/UL (150-450); RED BLOOD COUNT 4.28 M/UL (4.20-5.40); RED CELL DISTRIBUTION WIDTH 14.6 % (11.6-14.8); WHITE BLOOD COUNT 4.7 K/UL (4.8-10.8)
[2017-10-13 07:31] LABS: INR 1.1 (0.9-1.1)
[2017-10-13 07:40] LABS: ALANINE AMINOTRANSFERASE 18 U/L (12-78); ALBUMIN/GLOBULIN RATIO 0.8 (1.0-2.7); ALKALINE PHOSPHATASE 75 U/L (46-116); ANION GAP 8 mmol/L (5-15); ASPARTATE AMINO TRANSFERASE 31 U/L (15-37); BILIRUBIN,TOTAL 0.8 MG/DL (0.2-1.0); BLOOD UREA NITROGEN 13 mg/dL (7-18); CALCIUM 8.9 MG/DL (8.5-10.1); CARBON DIOXIDE 29 MMOL/L (21-32); CHLORIDE 109 MMOL/L (98-107); CREATININE 0.8 MG/DL (0.55-1.30); POTASSIUM 4.3 MMOL/L (3.5-5.1); SODIUM 145 MMOL/L (136-145)
[2017-10-13 08:00] VITALS: BP 90/47
[2017-10-13] MEDS: Sotalol 80mg tab ORAL SCH (09:00)
[2017-10-13] MEDS ORDERED: Sotalol 80mg tab ORAL SCH (09:00)
[2017-10-13] MEDS ORDERED: Vitamin D 400 INTLU TAB ORAL SCH (09:00)
--- NOTE | 2017-10-13 09:38 | General Progress Note ---
Assessment/Plan Assessment/Plan (1) Thoracic compression Fracture s/p kyphoplasty (2) Lumbar DDD (3) Lumbar spondylosis (4) Muscle spasm Patient to be continued on Morphine and Lidoderm patch. Parameters will be started to HOLD OPIOIDS FOR OVERSEDATION OR SBP<90 OR DBP<60 OR O2SAT<92% OR RR<12 D/w Dr. chaudhry and he concurred. Subjective Date patient seen: October 13, 2017 Time patient seen: 08:30 - am Allergies: Coded Allergies: ASPIRIN (Verified Allergy, Unknown, 10/09/17) Subjective REVIEW OF SYSTEMS: Denies rash, fever, chills, sweating, dizziness, drowsiness, blurred vision, sore throat, or change in weight. No shortness of breath or chest pain. No nausea, vomiting, diarrhea, or blood in stool or urine. No bowel or bladder incontinence. No dysuria. She is complaining of back pain. SUBJECTIVE: Patient reports that she is in pain due to not receiving the Morphine caused by BP being low. Transferred to tele being seen by Food Service Kitchen Supervisor. Objective Last 24 Hour Vital Signs Date Time Temp Pulse Resp B/P (MAP) Pulse Ox O2 Delivery O2 Flow Rate FiO2 10/13/17 08:00 97.9 78 19 90/47 97 Room Air 97.9 10/13/17 04:00 47 10/13/17 04:00 97.3 50 18 111/57 95 Room Air 97.3 10/13/17 01:00 97.7 53 18 106/57 96 Room Air 97.7 10/13/17 00:00 54 10/12/17 20:40 55 107/56 10/12/17 20:00 55 10/12/17 20:00 97.7 55 18 107/56 95 Room Air 97.7 10/12/17 16:00 61 10/12/17 16:00 97.9 57 16 117/56 94 Room Air 97.9 10/12/17 12:00 66 10/12/17 11:36 98.0 46 16 108/61 98 98.0 Intake and Output 10/12/17 10/13/17 19:00 07:00 # Voids 2 2 Laboratory Tests 10/12/17 13:15: Prothrombin Time 12.6H, Prothromb Time International Ratio 1.2H 10/13/17 06:55: Prothrombin Time 12.0H, Prothromb Time International Ratio 1.1, White Blood Count 4.7L, Red Blood Count 4.28, Hemoglobin 13.8, Hematocrit 39.5, Mean Corpuscular Volume 92, Mean Corpuscular Hemoglobin 32.3H, Mean Corpuscular Hemoglobin Concent 35.0, Red Cell Distribution Width 14.6, Platelet Count 121L, Mean Platelet Volume 7.4, Neutrophils (%) (Auto) 58.0, Lymphocytes (%) (Auto) 29.8, Monocytes (%) (Auto) 8.9, Eosinophils (%) (Auto) 2.0, Basophils (%) (Auto ) 1.2, Sodium Level 145, Potassium Level 4.3, Chloride Level 109H, Carbon Dioxide Level 29, Anion Gap 8, Blood Urea Nitrogen 13, Creatinine 0.8, Estimat Glomerular Filtration Rate , Glucose Level 89, Calcium Level 8.9, Total Bilirubin 0.8, Aspartate Amino Transf (AST/SGOT) 31, Alanine Aminotransferase ( ALT/SGPT) 18, Alkaline Phosphatase 75, Total Protein 6.6, Albumin 3.0L, Globulin 3.6, Albumin/Globulin Ratio 0.8L Height (Feet): 5 Height (Inches): 4.00 Weight (Pounds): 134 Objective GENERAL: Alert, awake, and oriented x3. HEENT: PERRLA. NECK: Range of motion is full in all directions. No tenderness to paracervical muscles. No adenopathy. LUNGS: Clear. HEART: Regular. ABDOMEN: Benign. BACK: Range of motion is decreased in flexion and extension with tenderness to paraspinal muscles, trapezius, and rhomboid muscles. EXTREMITIES: Upper extremity and lower extremity range of motion is full in all directions. Motor is intact. No cyanosis. No clubbing. No edema. Sensory is intact. Reflexes are not obtainable. No adenopathy. Procedure: MRI L Spine no Contrast Indication: Back pain Technique: MRI examination of the Lumbar spine was performed in a 1.5 Alisa magnet. Sequences obtained include sagittal and axial T1 and T2 fast spin echo, and sagittal STIR. Comparison: none Findings: At the upper edge of the genza-le-rcow, the T11 vertebra is seen and abnormal. There is T2 hyperintense edema within the upper endplate with suggestion of some mild linear T1 hypointense signal. Findings consistent with a mild but acute fracture involving the superior endplate of the T11 vertebra, which retains normal height. This is only imaged on sagittal sequences as it is in the lower part of the thoracic spine. There is no retropulsion identified. There is no evidence of compression of the canal or cord compression. The distal part of the spinal cord appears normal with the cord terminating at about L1. Conus medullaris and cauda equina appear normal. L5-S1 shows a mild anterolisthesis. There is narrowing of the neural foramen at this level due to facet arthropathy which is moderate to severe. There is no central canal stenosis. There is no obvious pars interarticularis defect. The other lumbar levels demonstrate hypertrophied facets, but no disc herniation or central canal stenosis. No significant foraminal stenosis appreciated at any of the other lumbar levels. Bone marrow signal is otherwise normal throughout the lumbar spine. Incidental 5.5 cm cyst noted within the left kidney. 6 mm cyst noted in the right kidney. IMPRESSION: Mild, acute superior endplate fracture of the T11 vertebra. No loss of height or retropulsion. Grade 1 spondylolisthesis L5 on S1. Moderate bilateral neural foraminal stenosis due to facet arthropathy. Degenerative facet arthropathy within the lumbar spine at multiple levels. DEBBIE COX October 13, 2017 09:37
[2017-10-13] MEDS: Docusate 100mg cap ORAL SCH (09:44)
--- NOTE | 2017-10-13 10:06 | General Progress Note ---
Assessment/Plan Status: stable Assessment/Plan 1. Acute compression fracture of T 11 2. Pain management 2. Atrial fibrillation, controlled rate. 3. Gastrointestinal and deep venous thrombosis prophylaxes. 4. New incidence of acute low BP and Low [place]: likely iatrogenic Plan: Acute compression fracture of T 11, amenable to Kyphoplasty Neuro note reviewed. IR consulted for Kyphoplasty Patient refused doing Kyphoplasty at this time New incidence of acute low BP and Low [place] Cardiology note reviewed Sotolol dose modified once clear by cardiology will be DC ed Subjective ROS Limited/Unobtainable: No Constitutional: Reports: weakness HEENT: Reports: no symptoms Cardiovascular: Reports: no symptoms Respiratory: Reports: no symptoms Allergies: Coded Allergies: ASPIRIN (Verified Allergy, Unknown, 10/09/17) Objective Last 24 Hour Vital Signs Date Time Temp Pulse Resp B/P (MAP) Pulse Ox O2 Delivery O2 Flow Rate FiO2 10/13/17 09:00 78 90/47 10/13/17 08:00 97.9 78 19 90/47 97 Room Air 97.9 10/13/17 04:00 47 10/13/17 04:00 97.3 50 18 111/57 95 Room Air 97.3 10/13/17 01:00 97.7 53 18 106/57 96 Room Air 97.7 10/13/17 00:00 54 10/12/17 20:40 55 107/56 10/12/17 20:00 55 10/12/17 20:00 97.7 55 18 107/56 95 Room Air 97.7 10/12/17 16:00 61 10/12/17 16:00 97.9 57 16 117/56 94 Room Air 97.9 10/12/17 12:00 66 10/12/17 11:36 98.0 46 16 108/61 98 98.0 Intake and Output 10/12/17 10/13/17 19:00 07:00 # Voids 2 2 Laboratory Tests 10/12/17 13:15: Prothrombin Time 12.6H, Prothromb Time International Ratio 1.2H 10/13/17 06:55: Prothrombin Time 12.0H, Prothromb Time International Ratio 1.1, White Blood Count 4.7L, Red Blood Count 4.28, Hemoglobin 13.8, Hematocrit 39.5, Mean Corpuscular Volume 92, Mean Corpuscular Hemoglobin 32.3H, Mean Corpuscular Hemoglobin Concent 35.0, Red Cell Distribution Width 14.6, Platelet Count 121L, Mean Platelet Volume 7.4, Neutrophils (%) (Auto) 58.0, Lymphocytes (%) (Auto) 29.8, Monocytes (%) (Auto) 8.9, Eosinophils (%) (Auto) 2.0, Basophils (%) (Auto ) 1.2, Sodium Level 145, Potassium Level 4.3, Chloride Level 109H, Carbon Dioxide Level 29, Anion Gap 8, Blood Urea Nitrogen 13, Creatinine 0.8, Estimat Glomerular Filtration Rate , Glucose Level 89, Calcium Level 8.9, Total Bilirubin 0.8, Aspartate Amino Transf (AST/SGOT) 31, Alanine Aminotransferase ( ALT/SGPT) 18, Alkaline Phosphatase 75, Total Protein 6.6, Albumin 3.0L, Globulin 3.6, Albumin/Globulin Ratio 0.8L Height (Feet): 5 Height (Inches): 4.00 Weight (Pounds): 134 General Appearance: mild distress EENT: PERRL/EOMI Neck: supple Cardiovascular: normal rate Respiratory/Chest: lungs clear Abdomen: soft Extremities: other - decreased ROM in LE secondary to pain Neurologic: marker assembler II-XII grossly normal Roderick Mckee MD October 13, 2017 10:06
[2017-10-13 12:00] VITALS: BP 110/60
--- NOTE | 2017-10-13 15:50 | Cardiac Electrophysiology PN ---
Assessment/Plan Assessment/Plan 1. Paroxysmal atrial fibrillation. Now on sotalol 40 mg bid and Coumadin 2. T10 compression fractures. Refused Kyphoplasty 3. Bradycardia better with lower dose of Sotalol Subjective Subjective Patient refused doing Kyphoplasty at this time Objective Last 24 Hour Vital Signs Date Time Temp Pulse Resp B/P (MAP) Pulse Ox O2 Delivery O2 Flow Rate FiO2 10/13/17 12:00 62 10/13/17 12:00 97.7 50 20 110/60 95 Room Air 97.7 10/13/17 09:00 78 90/47 10/13/17 08:00 54 10/13/17 08:00 97.9 78 19 90/47 97 Room Air 97.9 10/13/17 04:00 47 10/13/17 04:00 97.3 50 18 111/57 95 Room Air 97.3 10/13/17 01:00 97.7 53 18 106/57 96 Room Air 97.7 10/13/17 00:00 54 10/12/17 20:40 55 107/56 10/12/17 20:00 55 10/12/17 20:00 97.7 55 18 107/56 95 Room Air 97.7 10/12/17 16:00 61 10/12/17 16:00 97.9 57 16 117/56 94 Room Air 97.9 Intake and Output 10/12/17 10/13/17 19:00 07:00 # Voids 2 2 Laboratory Tests Test 10/13/17 06:55 White Blood Count 4.7 K/UL (4.8-10.8) L Red Blood Count 4.28 M/UL (4.20-5.40) Hemoglobin 13.8 G/DL (12.0-16.0) Hematocrit 39.5 % (37.0-47.0) Mean Corpuscular Volume 92 FL (80-99) Mean Corpuscular Hemoglobin 32.3 PG (27.0-31.0) H Mean Corpuscular Hemoglobin Concent 35.0 G/DL (32.0-36.0) Red Cell Distribution Width 14.6 % (11.6-14.8) Platelet Count 121 K/UL (150-450) L Mean Platelet Volume 7.4 FL (6.5-10.1) Neutrophils (%) (Auto) 58.0 % (45.0-75.0) Lymphocytes (%) (Auto) 29.8 % (20.0-45.0) Monocytes (%) (Auto) 8.9 % (1.0-10.0) Eosinophils (%) (Auto) 2.0 % (0.0-3.0) Basophils (%) (Auto) 1.2 % (0.0-2.0) Prothrombin Time 12.0 SEC (9.30-11.50) H Prothromb Time International Ratio 1.1 (0.9-1.1) Sodium Level 145 MMOL/L (136-145) Potassium Level 4.3 MMOL/L (3.5-5.1) Chloride Level 109 MMOL/L (98-107) H Carbon Dioxide Level 29 MMOL/L (21-32) Anion Gap 8 mmol/L (5-15) Blood Urea Nitrogen 13 mg/dL (7-18) Creatinine 0.8 MG/DL (0.55-1.30) Estimat Glomerular Filtration Rate mL/min (>60) Glucose Level 89 MG/DL (74-106) Calcium Level 8.9 MG/DL (8.5-10.1) Total Bilirubin 0.8 MG/DL (0.2-1.0) Aspartate Amino Transf (AST/SGOT) 31 U/L (15-37) Alanine Aminotransferase (ALT/SGPT) 18 U/L (12-78) Alkaline Phosphatase 75 U/L (46-116) Total Protein 6.6 G/DL (6.4-8.2) Albumin 3.0 G/DL (3.4-5.0) L Globulin 3.6 g/dL Albumin/Globulin Ratio 0.8 (1.0-2.7) L Objective HEAD AND NECK: Showed no JVD or carotid bruits. LUNGS: Clear. CARDIOVASCULAR: Regular S1 and S2 with no gallop or murmur. ABDOMEN: Soft. EXTREMITIES: No pitting edema. Haim Sesay MD October 13, 2017 15:50
[2017-10-13] MEDS ORDERED: Warfarin Sodium 3mg ORAL ONE (17:00)
--- NOTE | 2017-10-14 13:59 | Discharge Summary ---
Discharge Summary Discharge Summary Discharge Summary DATE OF ADMISSION: 10/09/2017 DATE OF DISCHARGE: 10/13/2017 CONSULTANTS: Dr. Haim Armstrong BRIEF HOSPITAL COURSE: Patient is a pleasant 82-year-old female, with prior history of T10 spinal compression deformity fracture status post kyphoplasty. Patient reported for the past 1-3 days pain had been gradually worsening. Pain was described to be sharp and localized. She denied any sensory problems, denied any radiation of pain to lower extremity. Denied focal motor deficits. She has medical history significant for atrial fibrillation, cataract, On evaluation at ED, blood work was stable. She continued to have pain and discomfort. CT of the lumbar spine showed grade 1 spondylolisthesis at L5-S1. No definite spondylolysis identified. CT of the thoracic spine showed no evidence of acute injury. Status post kyphoplasty on T10 vertebra. Osteoporosis and mild degenerative changes of the thoracic spine. She was admitted for acute on chronic low back pain. She was seen by neurologist. She was given pain management morphine and Lidoderm patch. Lumbar spine MRI showed mild acute superior endplate fracture on the T11 vertebra. She was recommended kyphoplasty however patient refused. She was treated conservatively. She had atrial fibrillation and was noted to have episodes of hypotension and bradycardia. She was seen by cardiology's. Patient had been on sotalol 80 mg daily. Sotalol was decreased to 40 mg twice a day. She was also started on anticoagulation with Coumadin. Bradycardia was better with lower dose of sotalol. She was eventually discharged home. FINAL DIAGNOSES: Acute compression fracture on T11 Pain management Atrial fibrillation New incidence of acute hypotension and bradycardia likely iatrogenic Lumbar degenerative disc disease Old compression fracture T10 status post kyphoplasty DISPOSITION: Patient was discharged home. DISCHARGE MEDICATIONS: Refer to Discharge Medication List. DISCHARGE INSTRUCTIONS: Follow up with PCP in a week. I have been assigned to dictate discharge summary on this account, and I was not involved in the patient's management. Maeve Perez NP October 14, 2017 13:58
--- NOTE | 2017-10-14 15:19 | Cardiology Report ---
APPROVED REPORT EKG Measurement Heart [id number] Sinus bradycardia with occasional premature ventricular complexes Nonspecific T wave abnormality Abnormal ECG
--- NOTE | 2017-10-17 10:07 | Diagnostic Imaging Report ---
APPROVED REPORT CPT Code: 20170 Present Symptoms Comments: BILATERAL LEGS PAIN. BILATERAL: Imaging reveals a patent deep venous system bilaterally. There is no evidence of thrombus within the femoral, popliteal or tibial segments. The greater saphenous veins are also within normal limits. Doppler indicates normal spontaneous flow within these segments.
== END 2017-10-13 14:53 | disposition home or self-care (01) | DRG 544 ==
LOC: EMR 10:30 → 4E 11:38 → EDBEDREQ 12:15 → 4E 13:38 → 2E 10-12 11:20
DX: M48.54XA Collapsed vertebra, not elsewhere classified, thoracic region, initial encounter for fracture (principal); I95.9 Hypotension, unspecified; R00.1 Bradycardia, unspecified; Z88.6 Allergy status to analgesic agent; M51.36 Other intervertebral disc degeneration, lumbar region; M47.896 Other spondylosis, lumbar region; M62.830 Muscle spasm of back; R26.81 Unsteadiness on feet; F17.200 Nicotine dependence, unspecified, uncomplicated; I48.0 Paroxysmal atrial fibrillation
CPT/HCPCS: 36415; 72128; 72131; 72148; 80053; 84484; 85025; 85610; 85730; 87081; 93005; 93306; 93970; 99285; J2405

== ENCOUNTER 2017-10-18 10:43 | Emergency (ER) | payer OTHER ==
[~2017-10-18] VITALS: Ht 162.6 cm; Wt 60.8 kg
[2017-10-18 11:23] VITALS: BP 128/67
[2017-10-18 11:24] VITALS: BP 128/67
--- NOTE | 2017-10-19 09:34 | Emergency Room Report ---
History of Present Illness General Chief Complaint: Pain Source: Patient, Medical Record Present Illness HPI Patient persist with complaints of low back pain Intermittent for the past several days Patient has also had low back problems over the past several months Denies any acute trauma or fall Patient had previous admission on 2 different occasions Admissions are showing stable compression fractures of thoracic spine Patient had initial procedure done On the second presentation to the hospital denied acute intervention through radiology Denies any saddle paresthesia denies any loss of control of bowel or urination Patient has discomfort to bilateral lower back midthoracic lower thoracic region Allergies: Coded Allergies: ASPIRIN (Verified Allergy, Unknown, 10/09/17) Patient History Past Medical History: see triage record Pertinent Family History: none Reviewed Nursing Documentation: PMH: Agreed; PSxH: Agreed Nursing Documentation-PMH Past Medical History: No History, Except For Hx Cardiac Problems: Yes - A Fib Hx Cancer: No Hx Gastrointestinal Problems: No Hx Neurological Problems: No - Spinal Surgery 2018, Bilat Cataract Review of Systems All Other Systems: negative except mentioned in HPI Physical Exam Vital Signs Date Time Temp Pulse Resp B/P (MAP) Pulse Ox O2 Delivery O2 Flow Rate FiO2 10/18/17 10:48 98.4 60 18 128/67 97 Room Air 98.4 Sp02 EP Interpretation: reviewed, normal General Appearance: well appearing, no apparent distress Head: normocephalic, atraumatic Eyes: bilateral eye PERRL, bilateral eye EOMI ENT: hearing grossly normal, normal pharynx, TMs + canals normal, uvula midline Neck: full range of motion, supple, no meningismus, no bony tend Respiratory: lungs clear, normal breath sounds, no rhonchi, no respiratory distress, no retraction, no accessory muscle use Cardiovascular #1: normal peripheral pulses, regular rate, rhythm, no edema, no gallop, no JVD, no murmur Gastrointestinal: normal bowel sounds, non tender, soft, no mass, no organomegaly, non-distended, no guarding, no hernia, no pulsatile mass, no rebound Genitourinary: no CVA tenderness Musculoskeletal: other - Patient is ambulatory, neurologically intact, uncomfortable on palpation lower thoracic region paraspinally no midline step- off Neurologic: oriented x3, responsive, 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, motor strength/ tone normal, sensory intact Psychiatric: mood/affect normal Skin: normal color, no rash, warm/dry, palpation normal Lymphatic: normal inspection, no adenopathy Medical Decision Making Diagnostic Impression: Primary Impression: compression fracture ER Course Patient has extensive review of medical records has had recent MRI Did have 2 recent hospitalizations Patient does not have any further neurological deficits There has been no other acute trauma since the initial discharge Patient was discussed regarding appropriate outpatient follow-up there was no further requirement for evaluation at this time Last Vital Signs Date Time Temp Pulse Resp B/P (MAP) Pulse Ox O2 Delivery O2 Flow Rate FiO2 10/18/17 11:24 98.4 82 18 128/67 97 Room Air 98.4 Status: unchanged Disposition: HOME, SELF-CARE Condition: Stable Referrals: NON PHYSICIAN (PCP) Patient Instructions: Spinal Compression Fracture Additional Instructions: Patient is provided with the discharge instructions notified to follow up with primary doctor in the next 2-3 days otherwise return to the er with any worsening symptoms. Please note that this report is being documented using DRAGON technology. This can lead to erroneous entry secondary to incorrect interpretation by the dictating instrument. Gabe Haider DO October 19, 2017 09:34
== END 2017-10-18 11:45 | disposition home or self-care (01) ==
LOC: EMR 11:35
DX: M48.56XA Collapsed vertebra, not elsewhere classified, lumbar region, initial encounter for fracture (principal); I48.91 Unspecified atrial fibrillation
CPT/HCPCS: 99282

== ENCOUNTER 2020-05-14 09:06 | Inpatient (IN) | payer OTHER ==
[~2020-05-14] VITALS: Ht 160 cm; Wt 57.2 kg
--- NOTE | 2020-05-14 09:11 | Emergency Room Report ---
History of Present Illness General Chief Complaint: Back Pain-No Injury Source: Patient, EMS Present Illness HPI Patient is an 84-year-old female past medical history of compression fractures to the spine and atrial fibrillation who presents to the ER complaining of back pain. Patient states that she has back pain that began today. She states that she was walking around yesterday and felt fine. She denies any specific trauma. She denies any fever or chills. She denies any chest pain or shortness of breath. She denies any focal weakness. She states that she is able to ambulate but that it hurts to ambulate. She denies any changes to her bowel or bladder habits. Patient was brought into the emergency room from her home by EMS. Allergies: Coded Allergies: ASPIRIN (Verified Allergy, Unknown, 10/09/17) COVID-19 Screening Contact w/high risk pt: No Experienced COVID-19 symptoms?: No COVID-19 Testing performed WELL SURVEYING ENGINEER: No Patient History Now: No Reviewed Nursing Documentation: PMH: Agreed; PSxH: Agreed Nursing Documentation-PMH Hx Cardiac Problems: Yes - A Fib Hx Cancer: No Hx Gastrointestinal Problems: No Hx Neurological Problems: No - Spinal Surgery 2018, Bilat Cataract Review of Systems All Other Systems: negative except mentioned in HPI Physical Exam Sp02 EP Interpretation: reviewed, normal General Appearance: alert, GCS 15, non-toxic, mild distress Head: normocephalic, atraumatic ENT: hearing grossly normal, normal pharynx, no angioedema, normal voice Neck: full range of motion, supple/symm/no masses Respiratory: chest non-tender, lungs clear, normal breath sounds, speaking full sentences Cardiovascular #1: tachycardia, irregularly irregular Gastrointestinal: non tender, soft, no guarding, no rebound Rectal: deferred, other - No saddle anesthesia able to squeeze her gluteal muscles Musculoskeletal: other - Lower T-spine and upper L-spine tenderness to palpation with no step-offs Neurologic: motor strength/tone normal, 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 Due to a high probability of clinically significant, life threatening deterioration, the patient required my highest level of preparedness to intervene emergently and I personally spent this critical care time directly and personally managing the patient. This critical care time included obtaining a history; examining the patient; pulse oximetry; ordering and review of studies; arranging urgent treatment with development of a management plan; evaluation of patient's response to treatment; frequent reassessment; and, discussions with other providers.This critical care time was performed to assess and manage the high probability of imminent, life- threatening deterioration that could result in multi-organ failure. It was exclusive of separately billable procedures and treating other patients and teaching time. Please see MDM section and the rest of the note for further information on patient assessment and treatment. Medical Decision Making Diagnostic Impression: Primary Impression: Atrial fibrillation with rapid ventricular response Additional Impressions: NSTEMI (non-ST elevated myocardial infarction) L4 vertebral fracture ER Course Patient initially presented with atrial fibrillation with rapid ventricular response. Patient does have a history of atrial fibrillation in the past. Patient given 10 mg of IV Cardizem. Heart rate now in the 90s. We will continue to monitor Patient's heart rate returned to the 120s. An additional dose of IV Cardizem has been ordered as well as oral extended release Cardizem. Patient's CT demonstrates L4 vertebral fracture. Patient's troponin is elevated. Patient has no chest pain will give Plavix. EKG demonstrates no ST elevation. Patient to be admitted for further treatment and evaluation.. Laboratory Tests Test 05/14/20 09:40 White Blood Count 8.2 K/UL (4.8-10.8) Red Blood Count 4.89 M/UL (4.20-5.40) Hemoglobin 16.0 G/DL (12.0-16.0) Hematocrit 47.0 % (37.0-47.0) Mean Corpuscular Volume 96 FL (80-99) Mean Corpuscular Hemoglobin 32.7 PG (27.0-31.0) H Mean Corpuscular Hemoglobin Concent 34.0 G/DL (32.0-36.0) Red Cell Distribution Width 15.9 % (11.6-14.8) H Platelet Count 138 K/UL (150-450) L Mean Platelet Volume 7.3 FL (6.5-10.1) Neutrophils (%) (Auto) 79.5 % (45.0-75.0) H Lymphocytes (%) (Auto) 11.0 % (20.0-45.0) L Monocytes (%) (Auto) 8.3 % (1.0-10.0) Eosinophils (%) (Auto) 0.0 % (0.0-3.0) Basophils (%) (Auto) 1.0 % (0.0-2.0) Prothrombin Time 11.6 SEC (9.30-11.50) H Prothrombin Time INR 1.1 (0.9-1.1) Activated Partial Thromboplast Time 28 SEC (23-33) Sodium Level 141 MMOL/L (136-145) Potassium Level 4.0 MMOL/L (3.5-5.1) Chloride Level 107 MMOL/L (98-107) Carbon Dioxide Level 26 MMOL/L (21-32) Anion Gap 9 mmol/L (5-15) Blood Urea Nitrogen 16 mg/dL (7-18) Creatinine 0.8 MG/DL (0.55-1.30) Estimated Glomerular Filtration Rate > 60 mL/min (>60) Glucose Level 115 MG/DL (74-106) H Calcium Level 8.9 MG/DL (8.5-10.1) Total Bilirubin 2.0 MG/DL (0.2-1.0) H Direct Bilirubin 0.4 MG/DL (0.0-0.3) H Aspartate Amino Transferase (AST) 44 U/L (15-37) H Alanine Aminotransferase (ALT) 19 U/L (12-78) Alkaline Phosphatase 96 U/L (46-116) Troponin I 0.088 ng/mL (0.000-0.056) Total Protein 7.1 G/DL (6.4-8.2) Albumin 3.6 G/DL (3.4-5.0) Globulin 3.5 g/dL Albumin/Globulin Ratio 1.0 (1.0-2.7) Lipase 85 U/L (73-393) EKG Diagnostic Results Troponin ordered: Yes When was troponin ordered?: May 14, 2020 EKG Time: 09:19 EP Interpretation: Stefania Jeong MD Rate: tachycardiac - 116 bpm Rhythm: other - Atrial fibrillation with rapid ventricular response ST Segments: no acute changes ASA given to the pt in ED: Yes Rhythm Strip Diag. Results Rhythm Strip Time: 09:22 EP Interpretation: yes - Stefania Jeong MD Rate: 126 bpm Rhythm: no PVC's, no ectopy, other - Atrial fibrillation with rapid ventricular response Chest X-Ray Diagnostic Results Chest X-Ray Diagnostic Results : Chest X-Ray Ordered: Yes # of Views/Limited/Complete: 1 View Indication: Other - afib rbr EP Interpretation: Yes Interpretation: no consolidation, no effusion, no pneumothorax, other - Cardiomegaly Impression: No acute disease Electronically Signed by: Stefania Jeong MD Disposition: ADMITTED INPATIENT - Telemetry Condition: Critical Physician Consult: Dr. Araceli MD Additional Instructions: Please note that this report is being documented using [employer] technology. This can lead to erroneous entry secondary to incorrect interpretation by the dictating instrument. Stefania Jeong M.D. May 14, 2020 09:11
[2020-05-14] MEDS ORDERED: Methocarbamol 500mg tab ORAL ONE (09:15)
[2020-05-14] MEDS ORDERED: fentaNYL 100 mcg/2 mL IV ONE ×2 (09:15→12:30)
[2020-05-14 09:25] VITALS: BP 109/76
--- NOTE | 2020-05-14 09:25 | NUR ---
Patient CALI RA26 from home c/o lower back pain is progressively get worse x couple of days. Denies fall/ injury. a/ox4, increased heart rate of 143, other vss, complaints of lower back pain 03/22.
[2020-05-14] MEDS ORDERED: dilTIAZem HCl 25mg/5ml Inj IVP ONE ×2 (09:30→13:30)
[2020-05-14 09:54] LABS: MEAN CORPUSCULAR VOLUME 96 FL (80-99); MONOCYTES % (AUTO) 8.3 % (1.0-10.0); NEUTROPHILS % (AUTO) 79.5 % (45.0-75.0); PLATELET COUNT 138 K/UL (150-450); RED BLOOD COUNT 4.89 M/UL (4.20-5.40); RED CELL DISTRIBUTION WIDTH 15.9 % (11.6-14.8); WHITE BLOOD COUNT 8.2 K/UL (4.8-10.8)
[2020-05-14 10:03] LABS: INR 1.1 (0.9-1.1)
--- NOTE | 2020-05-14 10:06 | NUR ---
ED Nurse Note: patient off floor for ct scan.
--- NOTE | 2020-05-14 10:06 | NUR ---
ED Nurse Note: peripheral iv access inserted right ac 20 gauge, intact and patent.
--- NOTE | 2020-05-14 10:23 | NUR ---
ED Nurse Note: patient back on floor from ct scan.
[2020-05-14 10:46] LABS: ALANINE AMINOTRANSFERASE 19 U/L (12-78); ALBUMIN 3.6 G/DL (3.4-5.0); ALKALINE PHOSPHATASE 96 U/L (46-116); ANION GAP 9 mmol/L (5-15); ASPARTATE AMINO TRANSFERASE 44 U/L (15-37); BLOOD UREA NITROGEN 16 mg/dL (7-18); CALCIUM 8.9 MG/DL (8.5-10.1); CARBON DIOXIDE 26 MMOL/L (21-32); CHLORIDE 107 MMOL/L (98-107); CREATININE 0.8 MG/DL (0.55-1.30); SODIUM 141 MMOL/L (136-145)
[2020-05-14 10:47] LABS: BILIRUBIN,DIRECT 0.4 MG/DL (0.0-0.3)
--- NOTE | 2020-05-14 11:01 | Diagnostic Imaging Report ---
EXAM: CT CT T Spine no Contrast CLINICAL HISTORY: Back pain. TECHNIQUE: Axial images obtained through the thoracic spine with subsequent sagittal and coronal reformat images. All CT scans at this facility are performed using dose modulation techniques as appropriate to a performed exam including the following: automated exposure control with adjustment of the mA and/or kV according to patient size. RADIATION DOSE: CTDIvol: 5.1 mGy DLP: 217.4 mGy-cm Dose information generated by the CT scanner is available in PACS. COMPARISON: 10/09/2018 FINDINGS: Alignment is grossly anatomic. Patient is status post vertebroplasty at the T10 and T11 level. The T11 vertebroplasty is new since the 2018 exam. There is slight and cavity of the superior endplate of T12 which is old. No new fracture or compression deformity demonstrated. Degenerative disc space narrowing noted at multiple levels. No acute paraspinal soft tissue abnormality demonstrated. Dependent hazy atelectasis noted in both lungs. IMPRESSION: PATIENT STATUS POST VERTEBROPLASTY AT T10 AND T11. NO ACUTE FRACTURE OR COMPRESSION DEFORMITY. NO PARASPINAL SOFT TISSUE SWELLING.
--- NOTE | 2020-05-14 11:06 | Diagnostic Imaging Report ---
EXAM: CT CT L Spine no Contrast CLINICAL HISTORY: Back pain. TECHNIQUE: Axial images obtained through the lumbar spine with subsequent sagittal and coronal reformat images. All CT scans at this facility are performed using dose modulation techniques as appropriate to a performed exam including the following: automated exposure control with adjustment of the mA and/or kV according to patient size. RADIATION DOSE: CTDIvol: 4.2 mGy DLP: 201 mGy-cm Dose information generated by the CT scanner is available in PACS. COMPARISON: 09/06/2017 FINDINGS: Patient is status post vertebroplasty at the L3 level. There is diffuse osteopenia. Fracture lucency noted through the inferior endplate of L4. This may represent a recent fracture through an older central depression. An old central depression also identified at the superior endplate of L2 and minimally at T12 and L1. Alignment is anatomic except for slight degenerative anterolisthesis of L5 on S1. There is no spondylolysis. Hypertrophic facet disease demonstrated at L4-5 and L5-S1. There is no paraspinal soft tissue abnormality. IMPRESSION: STATUS POST VERTEBROPLASTY AT L3. FRACTURE AT THE INFERIOR ENDPLATE OF L4. THIS MAY REPRESENT A RECENT FRACTURE THROUGH AN OLDER CENTRAL DEPRESSION. OLD CENTRAL DEPRESSIONS OF THE SUPERIOR ENDPLATE OF L2 AND MINIMALLY AT T12 AND L1. 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
--- NOTE | 2020-05-14 11:09 | Diagnostic Imaging Report ---
EXAM: CT CT Abdomen Pelvis WO Contrast INDICATION: Abdominal and back pain. COMPARISON: None TECHNIQUE: Axial images were obtained through the abdomen pelvis without intravenous contrast. Sagittal and coronal reformats are generated. All CT scans at this facility are performed using dose modulation techniques as appropriate to a performed exam including the following: automated exposure control with adjustment of the mA and/or kV according to patient size. RADIATION DOSE: CTDIvol: 4.2 mGy DLP: 201 mGy-cm Dose information generated by the CT scanner is available in PACS. FINDINGS: Mild atelectasis is noted bilaterally. There are several circumscribed low-density cysts in the liver. A punctate granuloma also noted. The spleen is homogeneous. Gallbladder is without sludge or stone and there is no wall thickening. Mild diffuse atrophy of the pancreas noted. Adrenals are normal in morphology. Exophytic cyst noted upper to mid pole of the left kidney. No hydronephrosis. Small bowel loops are nondistended. The colon is also nondistended with average amount of stool. The appendix is normal. There is no free fluid or free air. No pathologic adenopathy demonstrated. Urinary bladder appears unremarkable. Patient has right hip fixation hardware. Please see separate dictation for lumbar spine. IMPRESSION: HEPATIC AND RENAL CYSTS. FIXATION HARDWARE RIGHT HIP. NO SIGN OF ACUTE DISEASE IN THE ABDOMEN AND PELVIS. PLEASE SEE SEPARATE DICTATION FOR LUMBAR SPINE.
--- NOTE | 2020-05-14 12:14 | NUR ---
ED Nurse Note: Patient allergic to ASA will return to [facility]
[2020-05-14] MEDS ORDERED: dilTIAZem HCl ER 180mg cap ORAL ONE (13:30)
--- NOTE | 2020-05-14 14:28 | NUR ---
ED Nurse Note: attempted to call report to tele unit. was told to call back in 10 minutes.
--- NOTE | 2020-05-14 14:48 | NUR ---
ED Nurse Note: gave report to yaritza johnson on tele unit.
--- NOTE | 2020-05-14 15:15 | NUR ---
ED Nurse Note: pt admitted to tele unit for dx of nstemi and severe lower back pain. vss at time of transfer, a/ox4, 01/20 pain on lower back area. Addendum: 05/14/20 at 1550 by MONICA pt transfered to unit with all belongings.
--- NOTE | 2020-05-14 15:20 | NUR ---
NURSE NOTES: admitted pt from the ed. pt is alert and awake; oriented x 4. respiration is even and unlabored on room air. skin is intact. c/o pain on lower back rates her pain level 9/10. will notify Dr. Charles for admission orders. made pt comfortable in bed. call light within reach.
[2020-05-14 16:00] VITALS: BP 136/86
--- NOTE | 2020-05-14 16:46 | Diagnostic Imaging Report ---
Indication: Reason For Exam: PAIN Technique: One view of the chest Comparison: none Findings: No acute infiltrates, effusions, or congestion. Tortuous calcified aorta. Borderline enlarged heart size. Upper mediastinum unremarkable. Impression: No acute process. Borderline cardiomegaly
[2020-05-14] MEDS ORDERED: HYDROcodone/Acetamin 5/325 tab ORAL PRN (18:45)
[2020-05-14] MEDS ORDERED: Milk of Magnesia 30ml Ud ORAL PRN (18:45)
--- NOTE | 2020-05-14 19:40 | NUR ---
NURSE NOTES: notified Dr. castañeda about dvt ppx order and pt is current A flutter. says no new order.
--- NOTE | 2020-05-14 19:40 | NUR ---
NURSE NOTES: Received pt and report from BOB Delacruz. Observed pt resting in bed and talking on the telephone. Pt is A/Ox4. phototypesetting equipment monitor is in placed; pt is in A. Flutter. IV site intact, asymptomatic, and patent. Bed is in the lowest position and locked. Call light and bedside table is within reach. No signs/symptoms of acute distress noted. Will continue plan of care.
[2020-05-14 20:00] VITALS: BP 132/81
--- NOTE | 2020-05-14 20:02 | NUR ---
HAND-OFF: Report given to KAYLEIGH.
[2020-05-14] MEDS ORDERED: Zolpidem 5mg tab ORAL PRN (20:30)
[2020-05-15] VITALS (7 sets, daily range): BP systolic 125–144; BP diastolic 63–84
--- NOTE | 2020-05-15 03:16 | History and Physical Report ---
DATE OF ADMISSION: 05/14/2020 REASON FOR ADMISSION: Elevated troponin level. HISTORY OF PRESENT ILLNESS: This 84-year-old female has a known history of osteoporosis and prior compression fractures as well as atrial fibrillation that apparently was diagnosed sometime this year. The patient apparently was referred to a newspaper vendor by her primary care physician earlier this year. The evaluation did not occur until relatively recently. She apparently was started on 1 drug. It is not clear whether she was placed on anticoagulation; however, the patient does not currently know her medication. The patient states that she has had back pain on and off for months. Today some pain worsened. She did not have any recent falls, however. She denies nausea, vomiting, diarrhea. She denies fever, chills, or cough. There is no known history of COVID-19 exposure. She also denies chest pain and palpitation. PAST MEDICAL HISTORY: Osteoporosis, compression fractures, cataract surgery, vertebroplasties x2, bilateral cataract surgery. ALLERGIES: Aspirin. MEDICATIONS: Presently not known. FAMILY HISTORY: Noncontributory. SOCIAL HISTORY: Negative for smoking, alcohol, or substance abuse. REVIEW OF SYSTEMS: A 10-point review of systems was performed, all negative other than noted above. As noted, the patient is a very poor historian. There are no old records for review. PHYSICAL EXAMINATION: VITAL SIGNS: Blood pressure 137/71, heart rate 107, respiratory rate 18, afebrile, oxygen saturation on room air 98%. HEENT: Temporal wasting. Pale conjunctivae. Oropharynx clear. NECK: Supple. Jugular venous pressure normal. LUNGS: Clear. CARDIAC: Irregularly irregular. Normal S1, S2 with no murmur or gallop. ABDOMEN: Soft, nontender. EXTREMITIES: Good pulses. No edema. Strength is symmetric. SPINE: Paraspinal palpation reveals no point tenderness. LABORATORY DATA: EKG, atrial fibrillation with increased ventricular rate, nonspecific ST change. White count 8.2, hemoglobin 16, BUN 16, creatinine 0.8. Potassium 4. Troponin 0.088. Imaging studies are reviewed with evidence of new lumbar compression fracture and prior thoracic and lumbar vertebroplasties. IMPRESSION: 1. Acute compression fracture and back pain. 2. Atrial fibrillation with increased ventricular rate. 3. Acute myocardial ischemia and possible [id number] infarction. 4. Osteoporosis and fall risk. PLAN: 1. Pain control. 2. Add additional therapy for rate control of atrial fibrillation. 3. Consideration for anticoagulation will be made. However, fall risk appears to be a significant factor against anticoagulation at this time. 4. MRI will be obtained. 5. Further recommendations will follow. Armando Charles M.D. DR: [place] JOB#: [id number] CC:
[2020-05-15] MEDS: NS w/KCl 20mEq 1000ml 1,000 ML IV SCH ×2 (03:56→17:16)
[2020-05-15 07:16] LABS: BASOPHILS % (AUTO) 1.4 % (0.0-2.0); EOSINOPHILS % (AUTO) 0.5 % (0.0-3.0); HEMATOCRIT 40.6 % (37.0-47.0); HEMOGLOBIN 14.5 G/DL (12.0-16.0); LYMPHOCYTES % (AUTO) 13.7 % (20.0-45.0); MEAN CORPUSCULAR VOLUME 92 FL (80-99); MONOCYTES % (AUTO) 7.3 % (1.0-10.0); NEUTROPHILS % (AUTO) 77.2 % (45.0-75.0); PLATELET COUNT 106 K/UL (150-450); RED BLOOD COUNT 4.43 M/UL (4.20-5.40)
--- NOTE | 2020-05-15 07:30 | NUR ---
NURSE NOTES: RECEIVED PATIENT A/A/OX4 IN BED. TURKISH SPEAKING AND ABLE TO COMMUNICATE IN TUNISIAN WELL. PATIENT IS ON SUPINE POSITION DUE TO BACK PAIN. BEDREST. ATTEMPTED TO REPOSITION. HAD BREAKFAST AND CONSUMED ADEQUATE AMOUNT FOOD INTAKE. ABLE TO FEED SELF. KEPT BED IN THE LOWEST POSITION. SIDERAILS ARE UPX2, CALL LIGHT IS WITHIN REACH. BED ALARM AND LOCK ACTIVATED. PIV PATENT AND INTACT. NO ACUTE CARDIO-RESP DISTRESS NOTED. ON COLLEGE SPORTS ASSISTANT INPLACED. WILL CONT TO MONITOR.
--- NOTE | 2020-05-15 07:43 | NUR ---
NURSE HAND-OFF REPORT: Important Events on Shift: Dr. Charles saw pt and inputted orders. 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 Patient Status: Stable Diet: Cardiac Pending Orders: MRI of T and L spine without contrast Pending Results/Labs: AM Labs Pending MD notification: N Latest Vital Signs: Temperature 97.4 , Pulse 93 , B/P 132 /63 , Respiratory Rate 17 , O2 SAT 95 , Room Air, O2 Flow Rate. EKG Rhythm: Atrial Flutter Rhythm change?: N Latest Cota Fall Score: 20 Fall Risk: Low Risk Safety Measures: Call light Within Reach, Bed Alarm Zone 1, Side Rails Side Rails x2, Bed position Low and Locked. Fall Precautions: Yellow Socks Yellow Gown Door Sign Patient Fall Education Report given to BOB Barker.
--- NOTE | 2020-05-15 08:05 | NUR ---
CASE MANAGEMENT:REVIEW 84 YR OLD FEMALE BIBA FROM HOME CC: PROGRESSIVELY WORSENING BASCK PAIN SI: NSTEMI. AFIB W/RVR. L4 FRACTURE 98.3 107 19 109/76 98% ON RA TROPONIN(+) 0.088 IS: 1L NS BOLUS IV FENTANYL X2 ROBAXIN PO IV CARDIZEM X2 ASA PLAVIX PO CXR CT ABD/PELVIS/L SPINE : TO TELEMETRY UNIT
[2020-05-15 08:21] LABS: ALANINE AMINOTRANSFERASE 15 U/L (12-78); ALBUMIN 3.2 G/DL (3.4-5.0); ALKALINE PHOSPHATASE 86 U/L (46-116); ANION GAP 10 mmol/L (5-15); ASPARTATE AMINO TRANSFERASE 41 U/L (15-37); BILIRUBIN,TOTAL 2.6 MG/DL (0.2-1.0); BLOOD UREA NITROGEN 12 mg/dL (7-18); CALCIUM 8.5 MG/DL (8.5-10.1); CARBON DIOXIDE 25 MMOL/L (21-32); CHLORIDE 106 MMOL/L (98-107); CREATININE 0.7 MG/DL (0.55-1.30); POTASSIUM 3.4 MMOL/L (3.5-5.1); SODIUM 141 MMOL/L (136-145)
[2020-05-15] MEDS: Tums 500mg ORAL SCH ×3 (08:23→17:15)
[2020-05-15] MEDS: Docusate 100mg cap ORAL SCH ×2 (08:23→16:53)
[2020-05-15] MEDS: Vitamin D 1000 IU Tab ORAL SCH (08:23)
[2020-05-15] MEDS: Metoprolol Succinate XL 50mg tab ORAL SCH (08:24)
[2020-05-15] MEDS: Eliquis 2.5mg tablet ORAL SCH ×2 (08:24→17:15)
[2020-05-15] MEDS: Morphine Sulfate 2mg/ml Inj(IV/IM USE ONLY) IVP PRN ×2 (09:02→16:06)
[2020-05-15 09:54] LABS: BILIRUBIN,DIRECT 0.6 MG/DL (0.0-0.3)
--- NOTE | 2020-05-15 10:00 | NUR ---
NURSE NOTES: ATTEMPTED TO CALL SALIMA @ [phone] FOR MED LIST. UNABLE TO LEAVE A MSG DUE TO NOT SET UP TO LEAVE A VM. WILL TRY AGAIN LATER TODAY.
--- NOTE | 2020-05-15 11:30 | NUR ---
NURSE NOTES: MRI COMPLETED. WILL CONT TO MONITOR
--- NOTE | 2020-05-15 11:30 | NUR ---
PT NOTE Received MD order for PT evaluation. Attempted to see patient for PT evaluation. Patient not available due to echocardiogram and c/o back pain with minimal movement per RN. Will re-attempt later as schedule permits, Lucero AGRICULTURE SALES ACCOUNT MANAGER notified.
--- NOTE | 2020-05-15 14:39 | NUR ---
NURSE NOTES: ATTEMPTED TO CALL THE NUMBERS ON THE FACESHEET. UNDER SALIMA NAME IT WAS A WRONG NUMBER AND THE ONE FOR HECTOR THE MAILBOX IS FULL. WILL CONT TO MONITOR.
--- NOTE | 2020-05-15 15:37 | Diagnostic Imaging Report ---
Indication: Back pain, trauma, recent abnormal CT scan Technique: Sagittal T1 and T2 fast spin echo, sagittal STIR, axial T1 and T2 fast spin-echo images of the lumbar spine Comparison: CT scan 05/14/2020, lumbar MRI 10/10/2017 Findings: There is endplate depression of the inferior endplate of the L4 vertebral body, also evident on recent CT scan, not evident on prior 2018 MRI. There is considerable marrow edema, manifested by decreased T1 signal and increased STIR signal, throughout the inferior L4 vertebral body. There is slight increased STIR and decreased T1 signal involving the superior endplate of the L1 vertebral body. This is not evident on the prior MRI. There is slight superior endplate irregularity noted on recent CT scan. There is evidence of prior vertebral augmentation procedure involving the L3 vertebral body as well as the T11 and T10 segments. The remaining vertebral marrow signal is normal. There is slight chronic-appearing endplate depressions noted of the T8 12 and L2 vertebral bodies. The bony alignment is normal. An ill 3 4, circumferential annular bulge results in borderline narrowing of the neural foramina. No significant central bulge or protrusion or spinal stenosis. L4-5, circumferential annular bulge results in mild narrowing of the bilateral neural foramina. No significant central bulge or protrusion or spinal stenosis. At the remaining disc levels, no significant disc bulge or protrusion, spinal stenosis, or neural foraminal stenosis. The included extra spinal soft tissues are remarkable for the presence of a large left renal cyst. There is also left lobe hepatic cyst demonstrated. These are described on prior abdomen CT scan. Impression: Positive for acute L4 inferior endplate compression fracture, also evident on recent CT scan Positive for acute or subacute L1 superior endplate compression fracture, less clearly visible on prior CT Evidence of prior multiple vertebral augmentation procedures. Degenerative changes, as described
--- NOTE | 2020-05-15 15:56 | Diagnostic Imaging Report ---
Indication: Back pain, history of compression fractures Technique: Sagittal T1 fast spin echo, sagittal T2 fast echo, sagittal STIR, axial T2 fast spin echo images were obtained through the thoracic spine Comparison: 09/07/2017. Also CT scan of 05/14/2020 Findings: Is previous study, patient has undergone T10 kyphoplasty for the previously diagnosed acute T10 compression fracture. Patient has also undergone interim T11 kyphoplasty; T11 is normal and the previous MRI. There is slight endplate depression superiorly of T12 which is unchanged. No abnormal thoracic vertebral marrow signal is demonstrated. The remaining vertebral body heights are preserved. The bony alignment is normal. The posterior T11 vertebral body is somewhat retropulse. The intrinsic cord signal is normal. No significant disc bulge or protrusion, spinal stenosis, or neural foraminal stenosis. The included soft tissues are unremarkable. Impression: No acute bony trauma Evidence of prior T10 and T11 compression fractures, status post intervention with vertebral augmentation procedures
--- NOTE | 2020-05-15 16:30 | NUR ---
NURSE NOTES: ATTEMPTED TO CALL THE NUMBER THAT PATIENT PROVIDED AND BUSY SIGNALS I RECEIVED. WILL CONT TO ATTEMPT. [phone]; [phone]. SALIMA'S PHONE NUMBERS.
--- NOTE | 2020-05-15 17:29 | NUR ---
NURSE NOTES: LEFT DR CORDELL FRANCE REGARDING PATIENT HEART RHYTHM ON MONITOR AND ABNORMAL LAB MG 1.6. AWAITING FOR A CALL BACK. WILL CONT TO MONITOR. Addendum: 05/15/20 at 1806 by ADILSON MAHMOOD LVN DR LANDA CALLED BACK AND ENTER HIS ORDERS. WILL CONT TO MONITOR.
--- NOTE | 2020-05-15 19:00 | NUR ---
NURSE NOTES: relayed MRI result to Dr Charles. will cont to monitor
--- NOTE | 2020-05-15 19:20 | NUR ---
NURSE HAND-OFF REPORT: Important Events on Shift:[heart rhytym made aware for pmd; pain management; ] Patient Status: heart rate observation] Diet: [cardiac] Pending Orders: [no labs] Pending Results/Labs:[] Pending MD notification:[] Latest Vital Signs: Temperature 98.1 , Pulse 138 , B/P 129 /71 , Respiratory Rate 19 , O2 SAT 96 , Room Air, O2 Flow Rate . Vital Sign Comment: [] EKG Rhythm: Atrial Flutter Rhythm change?: N MD Notified?: - MD Response: Latest Cota Fall Score: 20 Fall Risk: Low Risk Safety Measures: Call light Within Reach, Bed Alarm Zone 1, Side Rails Side Rails x2, Bed position Low and Locked. Fall Precautions: Yellow Socks Yellow Gown Door Sign Patient Fall Education Report given to [annika].
--- NOTE | 2020-05-15 20:00 | NUR ---
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 TOLERATING IV FLUIDS VIA RIGHT AC/GAUGE 20, NO SIGNS OF INFILTRATION. NO COMPLAINTS OF GI DISCOMFORT, NO N/V/D. PATIENT LYING ON BACK, REFUSE TO REPOSITION SECONDARY TO BACK PAIN, EDUCATED PATIENT ON REPOSITIONING FREQUENTLY TO PREVENT SKIN BREAKDOWN; ORIENTATED PATIENT ON PAIN MANAGEMENT, CONTINUE TO REFUSE REPOSITIONING. SIDE RAILS UP X3/BED IN LOWEST POSITION FOR SAFETY, ENCOURAGED PATIENT TO UTILIZE CALL LIGHT FOR ASSISTANCE, VERBALIZED UNDERSTANDING. NAD.
--- NOTE | 2020-05-15 20:30 | NUR ---
NURSE NOTES: UNABLE TO REACH FAMILY VIA TELEPHONE TO OBTAIN HOME MEDICATION LIST - PATIENT [phone]/VOICE MAIL NOT SET UP - [phone]/BUSY LINE X3 - [phone] HECTOR/NEPHEW VOICE MAIL BOX FULL, UNABLE TO LEAVE MESSAGE.
--- NOTE | 2020-05-15 21:33 | NUR ---
NURSE NOTES: MESSAGE LEFT FOR MD REGARDING ELEVATED HEART RATE, FLUCTUATING BETWEEN 130-160, PATIENT ASYMPTOMATIC, WILL AWAIT RETURN CALL. NAD.
[2020-05-15] MEDS ORDERED: dilTIAZem HCl 25mg/5ml Inj IVP ONE (22:45)
--- NOTE | 2020-05-15 22:45 | NUR ---
NURSE NOTES: RECEIVED ORDER FROM MD, ORDER NOTED AND CARRIED OUT-
--- NOTE | 2020-05-15 23:20 | Cardiology Progress Note ---
Subjective DATE OF SERVICE: May 15, 2020 C/o back pain MRI 's confirm acute L1 and L4 compr fx Still with episodes of rapid AFib Troponin still elevated; patient denies chest pain. Objective Last 24 Hour Vital Signs Date Time Temp Pulse Resp B/P (MAP) Pulse Ox O2 Delivery O2 Flow Rate FiO2 05/15/20 22:56 130 115/75 05/15/20 20:52 98.9 92 20 125/76 (92) 96 05/15/20 16:36 98.1 05/15/20 16:00 138 05/15/20 15:48 98.1 67 19 129/71 (90) 96 05/15/20 12:19 119 05/15/20 12:01 96.8 81 20 130/81 (97) 95 05/15/20 10:12 Room Air 05/15/20 09:32 96.7 05/15/20 09:00 96.7 63 19 131/81 (98) 95 05/15/20 08:24 63 131/81 05/15/20 08:00 139 05/15/20 04:00 97.4 93 17 132/63 (86) 95 05/15/20 04:00 103 05/15/20 00:00 99 05/15/20 00:00 97.2 96 17 144/84 (104) 95 ROS: unchanged from 05/14/20 HEENT: normal ENT inspection RHYTHM: Afib LUNGS: lungs clear bilaterally CARDIAC: irregularly irregular, rapid rate ABDOMEN: normal bowel sounds, non tender, soft EXTREMITIES: no calf tenderness, No edema Laboratory Tests Test 05/15/20 06:10 White Blood Count 7.0 K/UL (4.8-10.8) Red Blood Count 4.43 M/UL (4.20-5.40) Hemoglobin 14.5 G/DL (12.0-16.0) Hematocrit 40.6 % (37.0-47.0) Mean Corpuscular Volume 92 FL (80-99) Mean Corpuscular Hemoglobin 32.7 PG (27.0-31.0) H Mean Corpuscular Hemoglobin Concent 35.6 G/DL (32.0-36.0) Red Cell Distribution Width 17.0 % (11.6-14.8) H Platelet Count 106 K/UL (150-450) L Mean Platelet Volume 8.3 FL (6.5-10.1) Neutrophils (%) (Auto) 77.2 % (45.0-75.0) H Lymphocytes (%) (Auto) 13.7 % (20.0-45.0) L Monocytes (%) (Auto) 7.3 % (1.0-10.0) Eosinophils (%) (Auto) 0.5 % (0.0-3.0) Basophils (%) (Auto) 1.4 % (0.0-2.0) Sodium Level 141 MMOL/L (136-145) Potassium Level 3.4 MMOL/L (3.5-5.1) L Chloride Level 106 MMOL/L (98-107) Carbon Dioxide Level 25 MMOL/L (21-32) Anion Gap 10 mmol/L (5-15) Blood Urea Nitrogen 12 mg/dL (7-18) Creatinine 0.7 MG/DL (0.55-1.30) Estimat Glomerular Filtration Rate > 60 mL/min (>60) Glucose Level 78 MG/DL (74-106) Calcium Level 8.5 MG/DL (8.5-10.1) Magnesium Level 1.6 MG/DL (1.8-2.4) L Total Bilirubin 2.6 MG/DL (0.2-1.0) H Direct Bilirubin 0.6 MG/DL (0.0-0.3) H Aspartate Amino Transf (AST/SGOT) 41 U/L (15-37) H Alanine Aminotransferase (ALT/SGPT) 15 U/L (12-78) Alkaline Phosphatase 86 U/L (46-116) Troponin I 0.075 ng/mL (0.000-0.056) Total Protein 6.4 G/DL (6.4-8.2) Albumin 3.2 G/DL (3.4-5.0) L Globulin 3.2 g/dL Albumin/Globulin Ratio 1.0 (1.0-2.7) Vitamin B12 Level 638 PG/ML (193-986) Vitamin D 25-Hydroxy Pending 25-Hydroxy Vitamin D2 Pending 25-Hydroxy Vitamin D3 Pending Folate 7.4 NG/ML (8.6-58.9) L Thyroid Stimulating Hormone (TSH) 1.515 uiU/mL (0.358-3.740) Assessment/Plan Assessment/Plan Acute lumbar 1 and 4 compression fractures Chronic thoracic compression fractures with prior vertebroplasties PAFibrillation with RVR Acute myocardial ischemia and possible NSTE myocardial infarction Folic acid def Hypomagnesemia Acute back pain with immobility Beta ed and Ca++ channel blockers titrating for rate control Spine eval Full anti-coagulation IV Mg++ Vitamin suppl Check 2D echo Armando Charles MD May 15, 2020 23:20
[2020-05-16] VITALS: BP 132/69
[2020-05-16] MEDS: dilTIAZem HCl 60mg tab ORAL SCH ×4 (00:28→17:46)
[2020-05-16] MEDS: NS w/KCl 20mEq 1000ml 1,000 ML IV SCH (05:40)
[2020-05-16 07:03] LABS: BASOPHILS % (AUTO) 1.6 % (0.0-2.0); EOSINOPHILS % (AUTO) 0.3 % (0.0-3.0); HEMOGLOBIN 15.1 G/DL (12.0-16.0); LYMPHOCYTES % (AUTO) 13.6 % (20.0-45.0); MEAN CORPUSCULAR VOLUME 94 FL (80-99); MONOCYTES % (AUTO) 5.9 % (1.0-10.0); NEUTROPHILS % (AUTO) 78.6 % (45.0-75.0); PLATELET COUNT 119 K/UL (150-450); RED BLOOD COUNT 4.66 M/UL (4.20-5.40); RED CELL DISTRIBUTION WIDTH 15.9 % (11.6-14.8); WHITE BLOOD COUNT 5.8 K/UL (4.8-10.8)
--- NOTE | 2020-05-16 07:17 | NUR ---
CASE MANAGEMENT:REVIEW 05/16/20 SI: ACUTE ND. AFIB W/RVR. ACUTE L1 AND L4 COMPRESSION FRACTURE 98.1 115 20 132/89 97% ON RA IS: CARDIZEM PO Q6HRS FOLATE PO QD MIACALCIN NASALLY QD VIT D PO QD ELIQUIS PO BID TOPROL XL PO QD IVF+KCL @ 75/HR IV MORPHINE Q6HRS PRN : TELEMETRY STATUS DCP: FROM HOME PLAN: PAIN MGMT ORTHO CONSULT PENDING CONTROL HEART RATE
[2020-05-16 07:40] LABS: ALANINE AMINOTRANSFERASE 9 U/L (12-78); ALBUMIN 3.2 G/DL (3.4-5.0); ALBUMIN/GLOBULIN RATIO 0.9 (1.0-2.7); ALKALINE PHOSPHATASE 93 U/L (46-116); ANION GAP 9 mmol/L (5-15); ASPARTATE AMINO TRANSFERASE 45 U/L (15-37); BILIRUBIN,TOTAL 2.2 MG/DL (0.2-1.0); BLOOD UREA NITROGEN 11 mg/dL (7-18); CALCIUM 8.5 MG/DL (8.5-10.1); CARBON DIOXIDE 26 MMOL/L (21-32); CHLORIDE 104 MMOL/L (98-107); CREATININE 0.5 MG/DL (0.55-1.30); POTASSIUM 4.1 MMOL/L (3.5-5.1); SODIUM 139 MMOL/L (136-145)
[2020-05-16 07:45] LABS: BILIRUBIN,DIRECT 0.5 MG/DL (0.0-0.3)
[2020-05-16 08:00] VITALS: BP 110/74
--- NOTE | 2020-05-16 08:00 | NUR ---
NURSE HAND-OFF REPORT: Important Events on Shift:[REFUSED REPOSITIONING THROUGHOUT THE NIGHT, RESTED IN LONG INTERVALS, NAD., ELEVATED HEART RATE 130-160'S, MD NOTIFIED, ORDER RECEIVED AND CARRIED OUT] Patient Status: [STABLE, AFEBRILE] Diet: [CARDIAC] Pending Orders: [AM LABS/TROPONIN] Pending Results/Labs:[] Pending MD notification:[] Latest Vital Signs: Temperature 98.1 , Pulse 101 , B/P 132 /69 , Respiratory Rate 20 , O2 SAT 97 , Room Air, O2 Flow Rate . Vital Sign Comment: [STABLE, AFEBRILE] EKG Rhythm: Atrial Fibrillation Rhythm change?: N MD Notified?: - MD Response: Latest Cota Fall Score: 20 Fall Risk: Low Risk Safety Measures: Call light Within Reach, Bed Alarm Zone 1, Side Rails Side Rails x2, Bed position Low and Locked. Fall Precautions: Yellow Socks Yellow Gown Door Sign Patient Fall Education Report given to [BOB ISAACS].
--- NOTE | 2020-05-16 09:00 | NUR ---
PT EVALUATION NOTE Patient seen for initial evaluation. Patient presents with impaired functional mobility due to pain. Patient instructed in log roll technique. Patient able to roll with SBA using bedrail. Patient denied increased pain with rolling. EOB and OOB activities deferred until patient seen for ortho consult. Anticipate discharge home once medically cleared by MD. Recommend home PT follow-up. Patient has FWW at home. Addendum: 05/16/20 at 1134 by ALEXANDRA AGUSTIN PT Amended: Links added.
[2020-05-16] MEDS: Eliquis 2.5mg tablet ORAL SCH ×2 (09:15→17:49)
[2020-05-16] MEDS: Docusate 100mg cap ORAL SCH ×2 (09:16→17:48)
[2020-05-16] MEDS: Vitamin D 1000 IU Tab ORAL SCH (09:16)
[2020-05-16] MEDS: Tums 500mg ORAL SCH ×3 (09:16→17:49)
[2020-05-16] MEDS: Metoprolol Succinate XL 50mg tab ORAL SCH (09:16)
--- NOTE | 2020-05-16 11:28 | Cardiology Progress Note ---
Subjective DATE OF SERVICE: May 16, 2020 C/o back pain MRI 's confirm acute L1 and L4 compr fx Still with episodes of rapid AFib - rates better controlled. Troponin still elevated; patient denies chest pain. Objective Last 24 Hour Vital Signs Date Time Temp Pulse Resp B/P (MAP) Pulse Ox O2 Delivery O2 Flow Rate FiO2 05/16/20 09:16 84 110/74 05/16/20 08:00 97.1 84 20 110/74 (86) 96 05/16/20 06:32 101 132/69 05/16/20 04:00 115 05/16/20 00:28 101 132/69 05/16/20 00:00 105 05/16/20 00:00 98.1 101 20 132/69 (90) 97 05/15/20 22:56 130 115/75 05/15/20 21:00 Room Air 05/15/20 20:00 138 05/15/20 20:00 98.9 92 20 125/76 (92) 96 05/15/20 16:36 98.1 05/15/20 16:00 138 05/15/20 15:48 98.1 67 19 129/71 (90) 96 05/15/20 12:19 119 05/15/20 12:01 96.8 81 20 130/81 (97) 95 ROS: unchanged from 05/14/20 HEENT: normal ENT inspection RHYTHM: Afib LUNGS: lungs clear bilaterally CARDIAC: irregularly irregular, rapid rate ABDOMEN: normal bowel sounds, non tender, soft EXTREMITIES: no calf tenderness, No edema Laboratory Tests Test 05/16/20 05:28 White Blood Count 5.8 K/UL (4.8-10.8) Red Blood Count 4.66 M/UL (4.20-5.40) Hemoglobin 15.1 G/DL (12.0-16.0) Hematocrit 44.0 % (37.0-47.0) Mean Corpuscular Volume 94 FL (80-99) Mean Corpuscular Hemoglobin 32.4 PG (27.0-31.0) H Mean Corpuscular Hemoglobin Concent 34.4 G/DL (32.0-36.0) Red Cell Distribution Width 15.9 % (11.6-14.8) H Platelet Count 119 K/UL (150-450) L Mean Platelet Volume 7.8 FL (6.5-10.1) Neutrophils (%) (Auto) 78.6 % (45.0-75.0) H Lymphocytes (%) (Auto) 13.6 % (20.0-45.0) L Monocytes (%) (Auto) 5.9 % (1.0-10.0) Eosinophils (%) (Auto) 0.3 % (0.0-3.0) Basophils (%) (Auto) 1.6 % (0.0-2.0) Sodium Level 139 MMOL/L (136-145) Potassium Level 4.1 MMOL/L (3.5-5.1) Chloride Level 104 MMOL/L (98-107) Carbon Dioxide Level 26 MMOL/L (21-32) Anion Gap 9 mmol/L (5-15) Blood Urea Nitrogen 11 mg/dL (7-18) Creatinine 0.5 MG/DL (0.55-1.30) L Estimat Glomerular Filtration Rate > 60 mL/min (>60) Glucose Level 71 MG/DL (74-106) L Calcium Level 8.5 MG/DL (8.5-10.1) Total Bilirubin 2.2 MG/DL (0.2-1.0) H Direct Bilirubin 0.5 MG/DL (0.0-0.3) H Aspartate Amino Transf (AST/SGOT) 45 U/L (15-37) H Alanine Aminotransferase (ALT/SGPT) 9 U/L (12-78) L Alkaline Phosphatase 93 U/L (46-116) Troponin I 0.084 ng/mL (0.000-0.056) Pro-B-Type Natriuretic Peptide 2751 pg/mL (0-125) H Total Protein 6.6 G/DL (6.4-8.2) Albumin 3.2 G/DL (3.4-5.0) L Globulin 3.4 g/dL Albumin/Globulin Ratio 0.9 (1.0-2.7) L Assessment/Plan Assessment/Plan Acute lumbar 1 and 4 compression fractures Chronic thoracic compression fractures with prior vertebroplasties PAFibrillation with RVR Acute myocardial ischemia and possible NSTE myocardial infarction Folic acid def Hypomagnesemia Acute back pain with immobility Beta ed and Ca++ channel blockers titrating for rate control Spine eval Full anti-coagulation IV Mg++ Vitamin suppl Check 2D echo Araceli,Armando MD May 16, 2020 11:28
--- NOTE | 2020-05-16 11:32 | Cardiology Progress Note ---
Subjective DATE OF SERVICE: May 16, 2020 C/o back pain MRI 's confirm acute L1 and L4 compr fx Still with episodes of rapid AFib - rates better controlled. Troponin still elevated; patient denies chest pain. 2D Echo: EF 45% with mild valve regurgitation. Objective Last 24 Hour Vital Signs Date Time Temp Pulse Resp B/P (MAP) Pulse Ox O2 Delivery O2 Flow Rate FiO2 05/16/20 09:16 84 110/74 05/16/20 08:00 97.1 84 20 110/74 (86) 96 05/16/20 06:32 101 132/69 05/16/20 04:00 115 05/16/20 00:28 101 132/69 05/16/20 00:00 105 05/16/20 00:00 98.1 101 20 132/69 (90) 97 05/15/20 22:56 130 115/75 05/15/20 21:00 Room Air 05/15/20 20:00 138 05/15/20 20:00 98.9 92 20 125/76 (92) 96 05/15/20 16:36 98.1 05/15/20 16:00 138 05/15/20 15:48 98.1 67 19 129/71 (90) 96 05/15/20 12:19 119 05/15/20 12:01 96.8 81 20 130/81 (97) 95 ROS: unchanged from 05/14/20 HEENT: normal ENT inspection RHYTHM: Afib LUNGS: lungs clear bilaterally CARDIAC: irregularly irregular, rapid rate ABDOMEN: normal bowel sounds, non tender, soft EXTREMITIES: no calf tenderness, No edema Laboratory Tests Test 05/16/20 05:28 White Blood Count 5.8 K/UL (4.8-10.8) Red Blood Count 4.66 M/UL (4.20-5.40) Hemoglobin 15.1 G/DL (12.0-16.0) Hematocrit 44.0 % (37.0-47.0) Mean Corpuscular Volume 94 FL (80-99) Mean Corpuscular Hemoglobin 32.4 PG (27.0-31.0) H Mean Corpuscular Hemoglobin Concent 34.4 G/DL (32.0-36.0) Red Cell Distribution Width 15.9 % (11.6-14.8) H Platelet Count 119 K/UL (150-450) L Mean Platelet Volume 7.8 FL (6.5-10.1) Neutrophils (%) (Auto) 78.6 % (45.0-75.0) H Lymphocytes (%) (Auto) 13.6 % (20.0-45.0) L Monocytes (%) (Auto) 5.9 % (1.0-10.0) Eosinophils (%) (Auto) 0.3 % (0.0-3.0) Basophils (%) (Auto) 1.6 % (0.0-2.0) Sodium Level 139 MMOL/L (136-145) Potassium Level 4.1 MMOL/L (3.5-5.1) Chloride Level 104 MMOL/L (98-107) Carbon Dioxide Level 26 MMOL/L (21-32) Anion Gap 9 mmol/L (5-15) Blood Urea Nitrogen 11 mg/dL (7-18) Creatinine 0.5 MG/DL (0.55-1.30) L Estimat Glomerular Filtration Rate > 60 mL/min (>60) Glucose Level 71 MG/DL (74-106) L Calcium Level 8.5 MG/DL (8.5-10.1) Total Bilirubin 2.2 MG/DL (0.2-1.0) H Direct Bilirubin 0.5 MG/DL (0.0-0.3) H Aspartate Amino Transf (AST/SGOT) 45 U/L (15-37) H Alanine Aminotransferase (ALT/SGPT) 9 U/L (12-78) L Alkaline Phosphatase 93 U/L (46-116) Troponin I 0.084 ng/mL (0.000-0.056) Pro-B-Type Natriuretic Peptide 2751 pg/mL (0-125) H Total Protein 6.6 G/DL (6.4-8.2) Albumin 3.2 G/DL (3.4-5.0) L Globulin 3.4 g/dL Albumin/Globulin Ratio 0.9 (1.0-2.7) L Assessment/Plan Assessment/Plan Acute lumbar 1 and 4 compression fractures Chronic thoracic compression fractures with prior vertebroplasties PAFibrillation with RVR Acute myocardial ischemia and possible NSTE myocardial infarction Folic acid def Hypomagnesemia Acute back pain with immobility Ac/chr systolic and diastolic CHF Beta ed and Ca++ channel blockers titrating for rate control Spine eval; cannot do surgery until cardiac issues stabilize Full anti-coagulation IV Mg++ as needed Vitamin suppl DC IVF ACEi rx added Armando Charles MD May 16, 2020 11:32
[2020-05-16 12:00] VITALS: BP 122/83
[2020-05-16] MEDS: Lisinopril 10mg tab ORAL SCH (12:31)
--- NOTE | 2020-05-16 13:29 | NUR ---
NURSE NOTES: Received pt report from BOB Son. Pt was in no distress and no pain at this time. Pt is Alert and oriented x4. Pt refuses to move positions, states she does not want to cause herself pain. Informed pt the benefits of repositioning. Pt IV patent and intact. Side rails x2, bed in the lowest position, call light within reach and bed alarm set. Will continue to monitor.
[2020-05-16 16:00] VITALS: BP 121/72
[2020-05-16] MEDS ORDERED: TEMAZEPAM15 MG ORAL (18:23)
[2020-05-16] MEDS ORDERED: VITAMIN D325 MC1 PO (18:23)
[2020-05-16] MEDS ORDERED: ELIQUIS5 MG ORAL (18:23)
--- NOTE | 2020-05-16 19:19 | NUR ---
NURSE HAND-OFF REPORT: Important Events on Shift:[Gave list of home medications to Dr. Charles.] Patient Status: [Full Code] Diet: [Cardiac Diet] Pending Orders: [] Pending Results/Labs:[] Pending MD notification:[] Latest Vital Signs: Temperature 97.7 , Pulse 86 , B/P 121 /72 , Respiratory Rate 18 , O2 SAT 97 , Room Air, O2 Flow Rate . Vital Sign Comment: [] EKG Rhythm: Atrial Flutter Rhythm change?: N MD Notified?: - MD Response: Latest Cota Fall Score: 20 Fall Risk: Low Risk Safety Measures: Call light Within Reach, Bed Alarm Zone 1, Side Rails Side Rails x2, Bed position Low and Locked. Fall Precautions: Yellow Socks Yellow Gown Door Sign Patient Fall Education Report given to [BOB Dejesus].
[2020-05-16 20:00] VITALS: BP 119/65
--- NOTE | 2020-05-16 20:30 | NUR ---
NURSE NOTES: Received pt from BOB Hammonds. Pt awake, alert, and talkative. Bed in lowest position. Call light within reach. Will continue to monitor.
[2020-05-17] VITALS: BP 121/75
[2020-05-17] MEDS: dilTIAZem HCl 60mg tab ORAL SCH ×4 (01:35→17:19)
[2020-05-17 04:00] VITALS: BP 104/58
--- NOTE | 2020-05-17 07:34 | NUR ---
NURSE HAND-OFF REPORT: Important Events on Shift: pt requesting to see MD Patient Status: stable Diet: cardiac Pending Orders: n Pending Results/Labs:n Pending MD notification:n Latest Vital Signs: Temperature 97.9 , Pulse 84 , B/P 104 /58 , Respiratory Rate 18 , O2 SAT 94 , Room Air, O2 Flow Rate . Vital Sign Comment: stable EKG Rhythm: Atrial Flutter Rhythm change?: N MD Notified?: - MD Response: Latest Cota Fall Score: 20 Fall Risk: Low Risk Safety Measures: Call light Within Reach, Bed Alarm Zone 1, Side Rails Side Rails x2, Bed position Low and Locked. Fall Precautions: Yellow Socks Yellow Gown Door Sign Patient Fall Education Report given to BOB Donaldson.
--- NOTE | 2020-05-17 07:59 | NUR ---
NURSE NOTES: Received patient in bed. Awake A/O x4. On room air, respirations unlabored. Iv in the right AC, site intact. Side rails up x3, bed alarm on, call light within reach with return demonstration.
[2020-05-17 08:00] VITALS: BP 121/74
[2020-05-17] MEDS: Docusate 100mg cap ORAL SCH ×3 (09:00→18:00)
--- NOTE | 2020-05-17 09:00 | NUR ---
NURSE NOTES: Patient refused PO colace. States "I do not need it. It does nothing for me." Patient re-educated on risks and benefits.
[2020-05-17] MEDS: Lisinopril 10mg tab ORAL SCH (09:06)
[2020-05-17] MEDS: Metoprolol Succinate XL 50mg tab ORAL SCH (09:06)
[2020-05-17] MEDS: Eliquis 2.5mg tablet ORAL SCH ×2 (09:06→17:19)
[2020-05-17] MEDS: Tums 500mg ORAL SCH ×3 (09:06→17:19)
[2020-05-17] MEDS: Vitamin D 1000 IU Tab ORAL SCH (09:06)
--- NOTE | 2020-05-17 09:44 | NUR ---
CASE MANAGEMENT:REVIEW SI;ACUTE SC. AFIB W/RVR. ACUTE L1 AND L4 COMPRESSION FRACTURE. 98.2 103 18 104/58 94% ON RA NO LABS AVAILABLE IS;ELIQUIS PO BID LISINOPRIL PO QD CARDIZEM PO Q6 TOPROL XL PO QD TELE STATUS DCP;PATIENT IS FROM HOME PLAN; TITRATE BETA KALEB AND CA CHANNEL BLOCKERS FOR RATE CONTROL SPINE EVAL
[2020-05-17 12:00] VITALS: BP 123/74
--- NOTE | 2020-05-17 12:06 | NUR ---
NURSE NOTES: Dr. Lo contacted to f/u on new pain order for back pain. New order for diclofenac TID PRN obtained and carried out.
[2020-05-17] MEDS ORDERED: Diclofenac 1% Gel 100gm TOPIC PRN (12:15)
--- NOTE | 2020-05-17 12:57 | General Progress Note ---
Subjective ROS Limited/Unobtainable: No Constitutional: Reports: malaise, weakness HEENT: Reports: no symptoms Cardiovascular: Reports: no symptoms Respiratory: Reports: no symptoms Gastrointestinal/Abdominal: Reports: no symptoms Genitourinary: Reports: no symptoms Neurologic/Psychiatric: Reports: no symptoms Endocrine: Reports: no symptoms Hematologic/Lymphatic: Reports: no symptoms Allergies: Coded Allergies: ASPIRIN (Verified Allergy, Unknown, 10/09/17) All Systems: reviewed and negative except above Subjective no events. +back pain. controlled unless moving. aflutter on monitor. rate controlled. Objective Last 24 Hour Vital Signs Date Time Temp Pulse Resp B/P (MAP) Pulse Ox O2 Delivery O2 Flow Rate FiO2 05/17/20 11:54 90 123/74 05/17/20 09:06 121/74 05/17/20 09:06 93 121/74 05/17/20 09:00 Room Air 05/17/20 08:00 97.3 93 18 121/74 (90) 93 05/17/20 08:00 96 05/17/20 06:13 84 104/58 05/17/20 04:00 101 05/17/20 04:00 97.9 84 18 104/58 (73) 94 05/17/20 01:35 103 121/75 05/17/20 00:00 98.2 103 18 121/75 (90) 94 05/17/20 00:00 93 05/16/20 21:00 Room Air 05/16/20 20:00 98.2 91 18 119/65 (83) 94 05/16/20 20:00 81 05/16/20 17:46 86 121/72 05/16/20 16:00 97.7 86 18 121/72 (88) 97 05/16/20 16:00 89 Intake and Output 05/16/20 05/17/20 19:00 07:00 Intake Total 400 ml Output Total 1200 ml 700 ml Balance -800 ml -700 ml Intake Oral 400 ml Output Urine Total 1200 ml 700 ml Height (Feet): 5 Height (Inches): 3.00 Weight (Pounds): 126 Assessment/Plan Problem List: (1) HTN (hypertension) ICD Codes: I10 - Essential (primary) hypertension SNOMED: 24805863 (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 ICD Codes: S22.070K - Wedge compression fracture of T9-T10 vertebra, subsequent encounter for fracture with nonunion SNOMED: 751243112, 469588814 (3) Atrial fibrillation with rapid ventricular response ICD Codes: I48.91 - Unspecified atrial fibrillation SNOMED: 927410221570893 (4) Bradycardia ICD Codes: R00.1 - Bradycardia, unspecified SNOMED: 53859472 (5) NSTEMI (non-ST elevated myocardial infarction) ICD Codes: I21.4 - Non-ST elevation (NSTEMI) myocardial infarction SNOMED: 18145838 Status: stable, progressing Assessment/Plan: stable monitor on tele try topical pain reliever rate control pt/ot dvt/stress ulcer prophylaxis Charels Lo MD May 17, 2020 12:57
--- NOTE | 2020-05-17 15:57 | NUR ---
NURSE NOTES: Patient's advance directives brought in by Nicole Dickinson. Added to patient's chart.
--- NOTE | 2020-05-17 15:59 | NUR ---
PT Note Attempted to see patient for treatment but patient refused; c/o pain. RN was notified.
[2020-05-17 16:00] VITALS: BP 118/78
--- NOTE | 2020-05-17 18:55 | NUR ---
NURSE HAND-OFF REPORT: Important Events on Shift:[diclofenac PRN] Patient Status: [full code, stable] Diet: [cardiac] Pending Orders: [] Pending Results/Labs:[] Pending MD notification:[] Latest Vital Signs: Temperature 98.5 , Pulse 91 , B/P 118 /78 , Respiratory Rate 18 , O2 SAT 95 , Room Air, O2 Flow Rate . Vital Sign Comment: [] EKG Rhythm: Atrial Flutter Rhythm change?: N MD Notified?: - MD Response: Latest Cota Fall Score: 20 Fall Risk: Low Risk Safety Measures: Call light Within Reach, Bed Alarm Zone 1, Side Rails Side Rails x2, Bed position Low and Locked. Fall Precautions: Yellow Socks Yellow Gown Door Sign Patient Fall Education Report given to [Jonnathan ROJAS].
--- NOTE | 2020-05-17 19:35 | NUR ---
NURSE NOTES: Report received from BOB Donaldson. Patient is awake on bed, alert and oriented x 3-4. quality assurance monitor final is in place, shows atrial flutter with no chest pain reported. On room air, sating 95 %. On cardiac diet, instructed and amenable. On fall precaution, bed alarm is on. IV site is on right AC G-20 saline lock that is patent and intact. Safety measures are in place, bed in lowest and locked position, side rails up x 2, call light button and bedside table within reach, instructed to call for any assistance needed. Will continue plan of care.
[2020-05-17 20:00] VITALS: BP 108/52
--- NOTE | 2020-05-17 21:00 | NUR ---
NURSE NOTES: Rosa RN states that patient has been refusing her Colace, noted that her last bowel movement was 12/. MOM was given, instructed to increase oral fluid intake. Will continue to monitor.
[2020-05-18] VITALS: BP 117/82
[2020-05-18] MEDS: dilTIAZem HCl 60mg tab ORAL SCH ×4 (00:36→17:22)
[2020-05-18 04:00] VITALS: BP 114/67
--- NOTE | 2020-05-18 07:25 | NUR ---
NURSE HAND-OFF REPORT: Important Events on Shift: Patient has been resting well comfortably the whole shift with no complaints made. Patient has no bowel movement for 4 days, MOM 30 ml was given, but still with no bowel movement. Patient Status: Patient is awake on bed, in stable condition. Plan of care endorsed. Diet: Cardiac diet, soft easy chew, thin liquids. Pending Orders: none Pending Results/Labs:none Pending MD notification:none Latest Vital Signs: Temperature 97.1 , Pulse 92 , B/P 119 /72 , Respiratory Rate 18 , O2 SAT 94 , Room Air, O2 Flow Rate . Vital Sign Comment: stable EKG Rhythm: AFIB/AFLUTTER Rhythm change?: N MD Notified?: - MD Response: Latest Cota Fall Score: 20 Fall Risk: Low Risk Safety Measures: Call light Within Reach, Bed Alarm Zone 1, Side Rails Side Rails x2, Bed position Low and Locked. Fall Precautions: Yellow Socks Yellow Gown Door Sign Patient Fall Education Report given to BOB muñoz.
--- NOTE | 2020-05-18 07:30 | NUR ---
NURSE NOTES: RECEIVED PATIENT A/A/OX4 IN BED. ICELANDIC SPEAKING AND ABLE TO COMMUNICATE IN B[place]. PATIENT IS ON SUPINE POSITION DUE TO BACK PAIN. BEDREST. ATTEMPTED TO REPOSITION AND SHE SCREAMS. HAD BREAKFAST AND CONSUMED ADEQUATE AMOUNT FOOD INTAKE. ABLE TO FEED SELF. KEPT BED IN THE LOWEST POSITION. SIDERAILS ARE UPX2, CALL LIGHT IS WITHIN REACH. BED ALARM AND LOCK ACTIVATED. PIV PATENT AND INTACT. NO ACUTE CARDIO-RESP DISTRESS NOTED. ON ADOLESCENT PSYCHIATRIST INPLACED. WILL CONT TO MONITOR.
[2020-05-18 08:00] VITALS: BP 117/95
[2020-05-18] MEDS: Tums 500mg ORAL SCH ×3 (08:17→17:22)
[2020-05-18] MEDS: Metoprolol Succinate XL 50mg tab ORAL SCH (08:18)
[2020-05-18] MEDS: Eliquis 2.5mg tablet ORAL SCH ×2 (08:18→17:22)
[2020-05-18] MEDS: Docusate 100mg cap ORAL SCH ×2 (08:18→17:22)
[2020-05-18] MEDS: Vitamin D 1000 IU Tab ORAL SCH (08:18)
[2020-05-18] MEDS: Lisinopril 10mg tab ORAL SCH (08:19)
--- NOTE | 2020-05-18 09:50 | General Progress Note ---
Subjective ROS Limited/Unobtainable: No Constitutional: Reports: malaise HEENT: Reports: no symptoms Cardiovascular: Reports: no symptoms Respiratory: Reports: no symptoms Gastrointestinal/Abdominal: Reports: no symptoms Genitourinary: Reports: no symptoms Neurologic/Psychiatric: Reports: no symptoms Endocrine: Reports: no symptoms Hematologic/Lymphatic: Reports: no symptoms Allergies: Coded Allergies: ASPIRIN (Verified Allergy, Unknown, 10/09/17) All Systems: reviewed and negative except above Subjective no new complaints. pain better controlled. refusing to take any oral or iv pain meds. no fever or chills. HR controlled today Objective Last 24 Hour Vital Signs Date Time Temp Pulse Resp B/P (MAP) Pulse Ox O2 Delivery O2 Flow Rate FiO2 05/18/20 09:17 Room Air 05/18/20 08:19 117/75 05/18/20 08:18 85 117/75 05/18/20 08:00 99.1 85 18 117/95 (102) 93 05/18/20 08:00 83 05/18/20 05:32 92 119/72 05/18/20 04:00 96 05/18/20 04:00 97.1 92 18 114/67 (83) 94 05/18/20 00:36 90 117/82 05/18/20 00:00 97.4 90 20 117/82 (94) 94 05/18/20 00:00 96 05/17/20 21:00 Room Air 05/17/20 20:00 98.2 79 22 108/52 (70) 98 05/17/20 20:00 89 05/17/20 17:19 91 118/78 05/17/20 16:00 83 05/17/20 16:00 98.5 91 18 118/78 (91) 95 05/17/20 12:00 77 05/17/20 12:00 98.0 90 18 123/74 (90) 97 05/17/20 11:54 90 123/74 Intake and Output 05/17/20 05/18/20 19:00 07:00 Intake Total 600 ml 180 ml Output Total 800 ml 400 ml Balance -200 ml -220 ml Intake Oral 600 ml 180 ml Output Urine Total 800 ml 400 ml Height (Feet): 5 Height (Inches): 3.00 Weight (Pounds): 126 General Appearance: WD/WN, alert EENT: normal ENT inspection Neck: non-tender, normal alignment Cardiovascular: normal peripheral pulses, normal rate, regular rhythm Respiratory/Chest: chest wall non-tender, lungs clear, normal breath sounds, no respiratory distress Abdomen: normal bowel sounds, non tender, soft, no organomegaly Edema: no edema noted Arm (L), no edema noted Arm (R), no edema noted Leg (L), no edema noted Leg (R) 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, alert, oriented x 3, responsive Assessment/Plan Problem List: (1) HTN (hypertension) ICD Codes: I10 - Essential (primary) hypertension SNOMED: 91424883 (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 ICD Codes: S22.070K - Wedge compression fracture of T9-T10 vertebra, subsequent encounter for fracture with nonunion SNOMED: 834567906, 761056995 (3) Atrial fibrillation with rapid ventricular response ICD Codes: I48.91 - Unspecified atrial fibrillation SNOMED: 332724652635992 (4) Bradycardia ICD Codes: R00.1 - Bradycardia, unspecified SNOMED: 75256939 (5) NSTEMI (non-ST elevated myocardial infarction) ICD Codes: I21.4 - Non-ST elevation (NSTEMI) myocardial infarction SNOMED: 69163642 Status: stable, progressing Assessment/Plan: stable monitor on tele try topical pain relievers po/iv meds as needed rate control per cards pt/ot dvt/stress ulcer prophylaxis Charles Lo MD May 18, 2020 09:50
[2020-05-18 12:02] VITALS: BP 132/81
[2020-05-18 15:53] VITALS: BP 117/72
--- NOTE | 2020-05-18 19:09 | NUR ---
NURSE HAND-OFF REPORT: Important Events on Shift:[SEEN BY PT; REPOSITIONED; ] Patient Status: [STABLE] Diet: [CARDIAC SOFT EASY CHEW] Pending Orders: [] Pending Results/Labs:[] Pending MD notification:[] Latest Vital Signs: Temperature 97.5 , Pulse 76 , B/P 117 /72 , Respiratory Rate 18 , O2 SAT 94 , Room Air, O2 Flow Rate . Vital Sign Comment: [] EKG Rhythm: Atrial Flutter Rhythm change?: N MD Notified?: - MD Response: Latest Cota Fall Score: 20 Fall Risk: Low Risk Safety Measures: Call light Within Reach, Bed Alarm Zone 2, Side Rails Side Rails x3, Bed position Low and Locked. Fall Precautions: Yellow Socks Yellow Gown Door Sign Patient Fall Education Report given to [LEI].
--- NOTE | 2020-05-18 19:15 | NUR ---
NURSE NOTES: Report received from BOB Barker. Patient is awake on bed, alert and oriented x 4. On cardiac diet, soft easy chew, thin liquids, instructed and amenable. 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 On room air with no desaturation nor SOB at this time. On fall precaution, bed alarm is on. IV site is on right AC G-20 saline locked that is patent and intact. Safety measures are in place, bed in lowest and locked position, side rails up x 2, call light button and bedside table within reach, instructed to call for any assistance needed.
[2020-05-18 20:00] VITALS: BP 119/73
[2020-05-19] VITALS: BP 106/71
[2020-05-19] MEDS: dilTIAZem HCl 60mg tab ORAL SCH (00:46)
--- NOTE | 2020-05-19 01:31 | Cardiology Progress Note ---
Subjective DATE OF SERVICE: May 17, 2020 C/o back pain MRI 's confirm acute L1 and L4 compr fx Still with episodes of AFib with increased rates, but overall better controlled. Troponin still elevated, but no peak/trough 2D Echo: EF 45% with mild valve regurgitation. 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
--- NOTE | 2020-05-19 01:32 | Cardiology Progress Note ---
Subjective DATE OF SERVICE: May 18, 2020 Still c/o back pain MRI 's confirm acute L1 and L4 compr fx Still with episodes of AFib with increased rates, but overall better controlled. Troponin still elevated, but no peak/trough 2D Echo: EF 45% with mild valve regurgitation. Objective Last 24 Hour Vital Signs Date Time Temp Pulse Resp B/P (MAP) Pulse Ox O2 Delivery O2 Flow Rate FiO2 05/19/20 00:46 90 106/71 05/19/20 00:00 108 05/19/20 00:00 98.3 91 18 106/71 (83) 95 05/18/20 21:00 Room Air 05/18/20 20:00 98.1 90 19 119/73 (88) 92 05/18/20 20:00 86 05/18/20 17:22 76 117/72 05/18/20 16:39 76 05/18/20 15:53 97.5 84 18 117/72 (87) 94 05/18/20 12:02 97.0 86 18 132/81 (98) 95 05/18/20 12:01 86 132/81 05/18/20 12:00 92 05/18/20 09:17 Room Air 05/18/20 08:19 117/75 05/18/20 08:18 85 117/75 05/18/20 08:00 99.1 85 18 117/95 (102) 93 05/18/20 08:00 83 05/18/20 05:32 92 119/72 05/18/20 04:00 96 05/18/20 04:00 97.1 92 18 114/67 (83) 94 ROS: unchanged from 05/14/20 HEENT: normal ENT inspection RHYTHM: Afib LUNGS: lungs clear bilaterally CARDIAC: irregularly irregular, rapid rate ABDOMEN: normal bowel sounds, non tender, soft EXTREMITIES: no calf tenderness, No edema Assessment/Plan Assessment/Plan Acute lumbar 1 and 4 compression fractures 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
[2020-05-19 04:00] VITALS: BP 110/75
--- NOTE | 2020-05-19 07:30 | NUR ---
NURSE HAND-OFF REPORT: Important Events on Shift: Patient has been resting well the whole shift, no complaints was made. Dr. Charles ordered Lexiscan today, informed the patient regarding the procedure, amenable to instruction. Patient Status: Patient is asleep in stable condition. Plan of care endorsed. Diet: Cardiac diet, soft easy chew, thin liquids. Pending Orders: Lexiscan today Pending Results/Labs: AM labs result Pending MD notification:none Latest Vital Signs: Temperature 98.5 , Pulse 95 , B/P 110 /75 , Respiratory Rate 19 , O2 SAT 98 , Room Air, O2 Flow Rate . Vital Sign Comment: stable EKG Rhythm: Atrial Flutter Rhythm change?: N MD Notified?: - MD Response: Latest Cota Fall Score: 20 Fall Risk: Low Risk Safety Measures: Call light Within Reach, Bed Alarm Zone 1, Side Rails Side Rails x2, Bed position Low and Locked. Fall Precautions: Yellow Socks Yellow Gown Door Sign Patient Fall Education Report given to BOB Iqbal.
--- NOTE | 2020-05-19 07:41 | NUR ---
NURSE NOTES: Report received from Diya ROJAS. Patient seen on rounds, asleep but easily rousable, not in distress, comfortable. Pt is NPO for Lexiscan procedure today, pt is aware. PIV on right arm patent and intact. Purewick intact and draining. Bed low and locked, siderails up x2, call light placed within reach and instructed to call nurse for assistance. Will continue with plan of care.
--- NOTE | 2020-05-19 07:43 | NUR ---
CASE MANAGEMENT:REVIEW 05/19/20 SI: ACUTE CO. AFIB W/RVR. ACUTE L1 AND L4 COMPRESSION FRACTURE 98.5 98 19 110/75 98% ON RA IS: IV LEXISCAN X1 TOPROL XL PO QD ELIQUIS PO BID LISINOPRIL PO QD FOLATE PO QD NORCO PO Q4HRS PRN : TELEMETRY STATUS DCP: FROM HOME PLAN: STRESS TEST PAIN MGMT ORTHO CONSULT PENDING
[2020-05-19 08:00] VITALS: BP 117/74
--- NOTE | 2020-05-19 08:33 | NUR ---
NURSE NOTES: Patient taken down to nuclear med for 1st part of Lexiscan procedure in stable condition.
[2020-05-19] MEDS ORDERED: Lexiscan 0.4mg/5ml syringe IV PRN (09:00)
[2020-05-19] MEDS: Metoprolol Succinate XL 100mg tab ORAL SCH ×2 (09:00→09:58)
[2020-05-19] MEDS: Vitamin D 1000 IU Tab ORAL SCH (09:15)
[2020-05-19] MEDS: Eliquis 2.5mg tablet ORAL SCH (09:15)
[2020-05-19] MEDS: Tums 500mg ORAL SCH ×3 (09:16→18:05)
[2020-05-19] MEDS: Docusate 100mg cap ORAL SCH ×2 (09:20→18:05)
[2020-05-19] MEDS: Lisinopril 10mg tab ORAL SCH (09:58)
[2020-05-19 10:42] LABS: BASOPHILS % (AUTO) 1.6 % (0.0-2.0); EOSINOPHILS % (AUTO) 0.8 % (0.0-3.0); HEMATOCRIT 45.1 % (37.0-47.0); HEMOGLOBIN 16.1 G/DL (12.0-16.0); LYMPHOCYTES % (AUTO) 17.4 % (20.0-45.0); MEAN CORPUSCULAR VOLUME 91 FL (80-99); MONOCYTES % (AUTO) 8.3 % (1.0-10.0); NEUTROPHILS % (AUTO) 71.9 % (45.0-75.0); PLATELET COUNT 133 K/UL (150-450); RED BLOOD COUNT 4.94 M/UL (4.20-5.40); RED CELL DISTRIBUTION WIDTH 16.1 % (11.6-14.8)
--- NOTE | 2020-05-19 11:35 | NUR ---
PT NOTE Farida ROJAS requesting to defer PT treatment today, patient with elevated HR s/p stress test, patient currently sleeping. Will follow up tomorrow.
[2020-05-19 11:40] LABS: ALANINE AMINOTRANSFERASE 16 U/L (12-78); ALBUMIN 3.3 G/DL (3.4-5.0); ALBUMIN/GLOBULIN RATIO 0.9 (1.0-2.7); ALKALINE PHOSPHATASE 92 U/L (46-116); ASPARTATE AMINO TRANSFERASE 45 U/L (15-37); BILIRUBIN,TOTAL 1.7 MG/DL (0.2-1.0); BLOOD UREA NITROGEN 16 mg/dL (7-18); CALCIUM 9.1 MG/DL (8.5-10.1); CARBON DIOXIDE 26 MMOL/L (21-32); CREATININE 0.6 MG/DL (0.55-1.30)
--- NOTE | 2020-05-19 11:57 | NUR ---
HAND-OFF: Report given to Kesha ROJAS.
--- NOTE | 2020-05-19 11:57 | Diagnostic Imaging Report ---
INDICATION: Chest pain. Comparison: None available. TECHNIQUE: Using a one day protocol, the patient was injected IV with 9.5 mCi of Myoview. Thirty minutes later, resting gated SPECT images were acquired. Through a previously established IV site, using a bolus injection chemical stress infusion protocol, the patient was given 0.4 mg of Lexiscan followed by a bolus injection of 29.7 mCi of Tc Myoview. The patient was monitored until vital signs returned acceptable levels. Gated stress SPECT supine images were acquired at 30 minutes post Tc Cardiolite injection. The images were processed and displayed in the short axis, vertical and horizontal long axis, and compared with resting images. The gated stress supine images were additionally processed and evaluated for myocardial wall motion and global left ventricular ejection fraction. Patient unable to tolerate prone imaging. Only supine images are presented. FINDINGS: There is a photopenic area noted in the inferolateral wall toward the base of the heart. This is seen on both stress and resting images with no reversal. Findings consistent with a fixed infarct. No reversible ischemia demonstrated. The left ventricular ejection fraction is 30 %, which is quite impaired. End-diastolic and end-systolic volumes of 71 mL and 50 mL respectively were noted. 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 NO REVERSIBLE ISCHEMIA DEMONSTRATED. EJECTION FRACTION IS 30%. * Please note that this study is performed without the benefit of attenuation correction. Diaphragmatic creep attenuation artifacts can mimic an inferior wall abnormality.
--- NOTE | 2020-05-19 11:58 | NUR ---
NURSE NOTES: received report from Farida ROJAS, pt eugene.
[2020-05-19 12:02] LABS: BILIRUBIN,DIRECT 0.4 MG/DL (0.0-0.3); CHLORIDE 104 MMOL/L (98-107); POTASSIUM 3.6 MMOL/L (3.5-5.1); SODIUM 141 MMOL/L (136-145)
[2020-05-19 12:16] VITALS: BP 125/71
--- NOTE | 2020-05-19 13:21 | NUR ---
NURSE NOTES: pt had episode of aflutter RV with HR 150, spoke with dr castañeda, no new order.
[2020-05-19 16:00] VITALS: BP 121/67
--- NOTE | 2020-05-19 17:21 | NUR ---
HAND-OFF: Report given to Elizabeth ROJAS, pt in bed, alert, not in distress Aflutter in telemonitor HR 110's, will continue current plan of care.
--- NOTE | 2020-05-19 17:22 | NUR ---
NURSE NOTES: Received hand-off report from BOB Rebolledo. Patient in stable condition, room air, breathing even and unlabored, alert and oriented to baseline x4, responsive and verbalizes needs well, in no distress. Bed alarm on, bed in lowest and locked position, call light within reach, cardiac nurse in place.
[2020-05-19] MEDS: Eliquis 5mg tablet ORAL SCH (18:05)
--- NOTE | 2020-05-19 18:59 | NUR ---
NURSE HAND-OFF REPORT: Important Events on Shift: Patient stable condition, lexiscan done and endorsed findings to Diya De Santiago RN Patient Status: stable condition, full code Diet: cardiac, soft east chew Pending Orders: [] Pending Results/Labs:[] Pending MD notification:[] Latest Vital Signs: Temperature 97.8 , Pulse 99 , B/P 121 /67 , Respiratory Rate 18 , O2 SAT 94 , Room Air, O2 Flow Rate . Vital Sign Comment: [] EKG Rhythm: aflutter Rhythm change?: N MD Notified?: Y -dr maddy SALINAS Response: No New Orders Received Latest Cota Fall Score: 20 Fall Risk: Low Risk Safety Measures: Call light Within Reach, Bed Alarm Zone 1, Side Rails Side Rails x2, Bed position Low and Locked. Fall Precautions: Yellow Socks Yellow Gown Door Sign Patient Fall Education Report given to Diya De Santiago RN.
--- NOTE | 2020-05-19 19:05 | NUR ---
NURSE NOTES: Report received from BOB Johnson. Patient is awake on bed, alert and oriented x 4. 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 On Cardiac diet, instructed and amenable. IV site is on right AC g-20 saline locked that is patent and intact. Safety measures are in place, bed in lowest and locked position, side rails up x 2, call light button and bedside table within reach, instructed to call for any assistance needed.
--- NOTE | 2020-05-19 19:26 | Cardiology Progress Note ---
Subjective DATE OF SERVICE: May 19, 2020 Less back pain MRI 's confirm acute L1 and L4 compr fx Still with episodes of AFib with increased rates, but overall well controlled. Troponin was elevated, but no peak/trough 2D Echo: EF 45% with mild valve regurgitation. Myoc Perf scan: EF 30% with fixed inferior defect but no reversible ischemia. Objective Last 24 Hour Vital Signs Date Time Temp Pulse Resp B/P (MAP) Pulse Ox O2 Delivery O2 Flow Rate FiO2 05/19/20 16:13 99 05/19/20 16:00 97.8 72 18 121/67 (85) 94 05/19/20 13:16 150 05/19/20 12:16 97.9 63 18 125/71 (89) 93 05/19/20 12:00 150 05/19/20 09:58 85 134/74 05/19/20 09:58 134/74 05/19/20 09:00 Room Air 05/19/20 08:00 92 05/19/20 08:00 97.5 105 19 117/74 (88) 95 05/19/20 04:00 98.5 95 19 110/75 (87) 98 05/19/20 04:00 98 05/19/20 00:46 90 106/71 05/19/20 00:00 108 05/19/20 00:00 98.3 91 18 106/71 (83) 95 05/18/20 21:00 Room Air 05/18/20 20:00 98.1 90 19 119/73 (88) 92 05/18/20 20:00 86 ROS: unchanged from 05/14/20 HEENT: normal ENT inspection RHYTHM: Afib LUNGS: lungs clear bilaterally CARDIAC: irregularly irregular, rapid rate ABDOMEN: normal bowel sounds, non tender, soft EXTREMITIES: no calf tenderness, No edema Laboratory Tests Test 05/19/20 09:50 White Blood Count 7.0 K/UL (4.8-10.8) Red Blood Count 4.94 M/UL (4.20-5.40) Hemoglobin 16.1 G/DL (12.0-16.0) H Hematocrit 45.1 % (37.0-47.0) Mean Corpuscular Volume 91 FL (80-99) Mean Corpuscular Hemoglobin 32.5 PG (27.0-31.0) H Mean Corpuscular Hemoglobin Concent 35.6 G/DL (32.0-36.0) Red Cell Distribution Width 16.1 % (11.6-14.8) H Platelet Count 133 K/UL (150-450) L Mean Platelet Volume 8.1 FL (6.5-10.1) Neutrophils (%) (Auto) 71.9 % (45.0-75.0) Lymphocytes (%) (Auto) 17.4 % (20.0-45.0) L Monocytes (%) (Auto) 8.3 % (1.0-10.0) Eosinophils (%) (Auto) 0.8 % (0.0-3.0) Basophils (%) (Auto) 1.6 % (0.0-2.0) Sodium Level 141 MMOL/L (136-145) Potassium Level 3.6 MMOL/L (3.5-5.1) Chloride Level 104 MMOL/L (98-107) Carbon Dioxide Level 26 MMOL/L (21-32) Blood Urea Nitrogen 16 mg/dL (7-18) Creatinine 0.6 MG/DL (0.55-1.30) Estimat Glomerular Filtration Rate > 60 mL/min (>60) Glucose Level 86 MG/DL (74-106) Calcium Level 9.1 MG/DL (8.5-10.1) Magnesium Level 1.8 MG/DL (1.8-2.4) Total Bilirubin 1.7 MG/DL (0.2-1.0) H Direct Bilirubin 0.4 MG/DL (0.0-0.3) H Aspartate Amino Transf (AST/SGOT) 45 U/L (15-37) H Alanine Aminotransferase (ALT/SGPT) 16 U/L (12-78) Alkaline Phosphatase 92 U/L (46-116) Troponin I 0.081 ng/mL (0.000-0.056) Pro-B-Type Natriuretic Peptide 1137 pg/mL (0-125) H Total Protein 6.9 G/DL (6.4-8.2) Albumin 3.3 G/DL (3.4-5.0) L Globulin 3.6 g/dL Albumin/Globulin Ratio 0.9 (1.0-2.7) L Assessment/Plan Assessment/Plan Acute lumbar 1 and 4 compression fractures 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 Folic acid def Hypomagnesemia Acute back pain with immobility Ac/chr systolic and diastolic CHF Beta ed for rate control Spine eval; cannot consider surgery until cardiac issues stabilize Full anti-coagulation IV Mg++ as needed Vitamin suppl Trend BNP; may need diuresis ACEi rx titration DC telemetry Armando Charles MD May 19, 2020 19:26
[2020-05-19 20:00] VITALS: BP 121/84
[2020-05-20] VITALS: BP 125/73
--- NOTE | 2020-05-20 01:30 | NUR ---
TRANSFER TO FLOOR: Patient transferred to 3E room 311-1, per bed. Report given to BOB Alfredo. Belongings checked and verified with receiving nurse. At this time, patient is in stable condition and no complainst made. Plan of care endorsed.
--- NOTE | 2020-05-20 02:30 | NUR ---
NURSE NOTES: Received patient awake in bed, no s/s of acute distress, VSS. Patient dry, optifoam on sacral and bilateral heels. Belongings transferred with, list signed. IV access patent, flushed with normal saline, patient tolerating well. Purewick set up.
[2020-05-20 04:00] VITALS: BP 119/81
--- NOTE | 2020-05-20 07:38 | NUR ---
HAND-OFF: Report given to BOB Garza.
[2020-05-20 08:00] VITALS: BP 115/78
[2020-05-20] MEDS: Vitamin D 1000 IU Tab ORAL SCH (08:37)
[2020-05-20] MEDS: Lisinopril 20mg tab ORAL SCH (08:37)
[2020-05-20] MEDS: Tums 500mg ORAL SCH ×3 (08:37→17:02)
[2020-05-20] MEDS: Eliquis 5mg tablet ORAL SCH ×2 (08:37→17:02)
[2020-05-20] MEDS: Docusate 100mg cap ORAL SCH ×2 (08:37→17:02)
[2020-05-20] MEDS: Metoprolol Succinate XL 100mg tab ORAL SCH (08:53)
[2020-05-20 12:00] VITALS: BP 118/75
--- NOTE | 2020-05-20 12:46 | NUR ---
CASE MANAGEMENT:REVIEW 05/20/20 SI: ACUTE TN. AFIB W/RVR. ACUTE L1 AND L4 COMPRESSION FRACTURE 96.7 86 18 115/78 94% ON RA IS: TOPROL XL PO QD ELIQUIS PO BID LISINOPRIL PO QD FOLATE PO QD CALCITONIN NASALLY QD NORCO PO Q4HRS PRN : TELEMETRY STATUS DCP: FROM HOME PLAN: HAVE BEEN TRYING TO GET IN TOUCH [facility] AND [facility] WITH NO SUCCESS NEED TO SPEAK WITH A REPAIRER [employer] REGARDING TRANSFERRING PATIENT TO HIGHER LEVEL OF CARE
--- NOTE | 2020-05-20 12:55 | NUR ---
CASE [facility] BILLING AND ACCOUNTING STAFF ASSISTANT LEFT VMM FOR [facility] BILLING AND ACCOUNTING STAFF ASSISTANT [facility] REQUESTING TRANSFER FOR SURGERY
[2020-05-20 16:00] VITALS: BP 131/89
--- NOTE | 2020-05-20 19:20 | NUR ---
NURSE HAND-OFF: Important Events on Shift: stable condition Patient Status: Diet: regular Pending Orders: [] Pending Results/Labs:[] Pending MD notification:[] Latest Vital Signs: Temperature 97.7 , Pulse 59 , B/P 131 /89 , Respiratory Rate 18 , O2 SAT 97 , Room Air, O2 Flow Rate . Vital Sign Comment: stable Latest Cota Fall Score: 40 Fall Risk: Medium Risk Safety Measures: Call light Within Reach, Bed Alarm Zone 1, Side Rails Side Rails x2, Bed position Low and Locked. Fall Precautions: Yellow Socks Yellow Gown Door Sign Patient Fall Education Report given to Morris ROJAS, pt in stable condition. in coming nurse is aware and will inform the morning nurse to provide pain medication prior to work with PT.
--- NOTE | 2020-05-20 19:51 | NUR ---
NURSE NOTES: Report received from Kayla ROJAS .patient seen in bed, changed linens and gave partial bath. Patient denies any pain as of the moment.
[2020-05-20 20:00] VITALS: BP 108/75
--- NOTE | 2020-05-20 21:00 | General Progress Note ---
Subjective ROS Limited/Unobtainable: No Constitutional: Reports: weakness HEENT: Reports: no symptoms Cardiovascular: Reports: no symptoms Respiratory: Reports: no symptoms Gastrointestinal/Abdominal: Reports: no symptoms Genitourinary: Reports: no symptoms Neurologic/Psychiatric: Reports: no symptoms Endocrine: Reports: no symptoms Hematologic/Lymphatic: Reports: no symptoms Allergies: Coded Allergies: ASPIRIN (Verified Allergy, Unknown, 10/09/17) All Systems: reviewed and negative except above Subjective no new complaints. denies chest pain or sob. stable back pain- mostly when movi ng. refusing to take any pain meds. stress test noted. Objective Last 24 Hour Vital Signs Date Time Temp Pulse Resp B/P (MAP) Pulse Ox O2 Delivery O2 Flow Rate FiO2 05/20/20 20:00 97.9 97 18 108/75 (86) 94 05/20/20 16:00 97.7 59 18 131/89 (103) 97 05/20/20 12:00 98.2 65 18 118/75 (89) 92 05/20/20 09:00 Room Air 05/20/20 08:53 86 115/78 05/20/20 08:37 115/78 05/20/20 08:00 96.7 86 18 115/78 (90) 94 05/20/20 04:00 98.0 95 18 119/81 (94) 95 05/20/20 00:00 127 05/20/20 00:00 97.9 89 18 125/73 (90) 94 05/19/20 21:00 Room Air Intake and Output 05/19/20 05/20/20 19:00 07:00 Intake Total 300 ml Balance 300 ml Intake Oral 300 ml # Voids 3 2 # Bowel Movements 2 1 Height (Feet): 5 Height (Inches): 3.00 Weight (Pounds): 126 Objective General Appearance: WD/WN, alert EENT: normal ENT inspection Neck: non-tender, normal alignment Cardiovascular: normal peripheral pulses, normal rate, regular rhythm Respiratory/Chest: chest wall non-tender, lungs clear, normal breath sounds, no respiratory distress Abdomen: normal bowel sounds, non tender, soft, no organomegaly Edema: no edema noted Arm (L), no edema noted Arm (R), no edema noted Leg (L), no edema noted Leg (R) Neurologic: client account assistant II-XII grossly normal, alert, oriented x 3, responsive Assessment/Plan Problem List: (1) HTN (hypertension) ICD Codes: I10 - Essential (primary) hypertension SNOMED: 76438958 (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 ICD Codes: S22.070K - Wedge compression fracture of T9-T10 vertebra, subsequent encounter for fracture with nonunion SNOMED: 503756177, 154984098 (3) Atrial fibrillation with rapid ventricular response ICD Codes: I48.91 - Unspecified atrial fibrillation SNOMED: 709761543005162 (4) Bradycardia ICD Codes: R00.1 - Bradycardia, unspecified SNOMED: 29814492 (5) NSTEMI (non-ST elevated myocardial infarction) ICD Codes: I21.4 - Non-ST elevation (NSTEMI) myocardial infarction SNOMED: 78767430 Status: stable, progressing Assessment/Plan: stable try topical pain relievers po/iv meds as needed- if pt agrees/needs rate control per cards eliquis for stroke prophylaxis pt/ot dvt/stress ulcer prophylaxis Charles Lo MD May 20, 2020 21:00
[2020-05-21] VITALS: BP 114/98
--- NOTE | 2020-05-21 01:40 | Cardiology Progress Note ---
Subjective DATE OF SERVICE: May 20, 2020 Less back pain - but says she can't walk due to pain and weakness. MRI 's confirm acute L1 and L4 compr fx Remains with AFib - rates controlled Troponin was elevated, but no peak/trough 2D Echo: EF 45% with mild valve regurgitation. Myoc Perf scan: EF 30% with fixed inferior defect but no reversible ischemia. Objective Last 24 Hour Vital Signs Date Time Temp Pulse Resp B/P (MAP) Pulse Ox O2 Delivery O2 Flow Rate FiO2 05/21/20 00:00 97.5 94 18 114/98 (103) 94 05/20/20 21:00 Room Air 05/20/20 20:00 97.9 97 18 108/75 (86) 94 05/20/20 16:00 97.7 59 18 131/89 (103) 97 05/20/20 12:00 98.2 65 18 118/75 (89) 92 05/20/20 09:00 Room Air 05/20/20 08:53 86 115/78 05/20/20 08:37 115/78 05/20/20 08:00 96.7 86 18 115/78 (90) 94 05/20/20 04:00 98.0 95 18 119/81 (94) 95 ROS: unchanged from 05/14/20 HEENT: normal ENT inspection RHYTHM: Afib LUNGS: lungs clear bilaterally CARDIAC: irregularly irregular, rapid rate ABDOMEN: normal bowel sounds, non tender, soft EXTREMITIES: no calf tenderness, No edema Assessment/Plan Assessment/Plan Acute lumbar 1 and 4 compression fractures 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 Folic acid def Hypomagnesemia Acute back pain with immobility Ac/chr systolic and diastolic CHF Stable for kyphoplasty from cardovascular standpoint Beta ed for rate control Spine eval - Dr Tariq notified; will consider IR for kyphoplasty Full anti-coagulation IV Mg++ as needed Vitamin suppl Trend BNP; may need diuresis ACEi rx titration DC telemetry Armando Charles MD May 21, 2020 01:40
[2020-05-21 04:00] VITALS: BP 110/97
--- NOTE | 2020-05-21 06:58 | NUR ---
NURSE HAND-OFF: Important Events on Shift: Patient o2 was stable throughout the night, possible kyphoplasty today Patient Status: stable Diet: cardiac diet/soft easy chew Pending Orders: [] Pending Results/Labs:[] Pending MD notification:[] Latest Vital Signs: Temperature 97.0 , Pulse 90 , B/P 110 /97 , Respiratory Rate 18 , O2 SAT 95 , Room Air, O2 Flow Rate . Vital Sign Comment: [] Latest Cota Fall Score: 40 Fall Risk: Medium Risk Safety Measures: Call light Within Reach, Bed Alarm Zone 1, Side Rails Side Rails x2, Bed position Low and Locked. Fall Precautions: Yellow Socks Yellow Gown Door Sign Patient Fall Education Report given to Rosalba ROJAS
--- NOTE | 2020-05-21 07:45 | NUR ---
NURSE NOTES: Received report from BOB Caceres. patient awake in bed, a&ox4, able to make needs known. Breathing even and unlabored. no s/s of acute distress, no c/o pain at this time. IV access patent. Bed in low position, locked and alarm on. Call light within reach. Will continue to monitor.
[2020-05-21 08:00] VITALS: BP 126/71
[2020-05-21] MEDS: Vitamin D 1000 IU Tab ORAL SCH (08:54)
[2020-05-21] MEDS: Tums 500mg ORAL SCH ×3 (08:54→17:21)
[2020-05-21] MEDS: Lisinopril 20mg tab ORAL SCH (08:55)
[2020-05-21] MEDS: Eliquis 5mg tablet ORAL SCH ×2 (08:55→17:22)
[2020-05-21] MEDS: Docusate 100mg cap ORAL SCH ×3 (08:55→17:22)
[2020-05-21] MEDS: Metoprolol Succinate XL 100mg tab ORAL SCH (08:55)
--- NOTE | 2020-05-21 11:21 | NUR ---
RD ASSESSMENT & RECOMMENDATIONS SEE CARE ACTIVITY FOR COMPLETE ASSESSMENT DAILY ESTIMATED NEEDS: Needs based on Cardiac 55kg 25-30 kcals/kg 6055-9111 total kcals 1-1.3 g protein/kg 55-72 g total protein 25-30 mL/kg 1908-4730 total fluid mLs NUTRITION DIAGNOSIS: Altered nutrition related lab values r/t h/o CHF as evidenced by elev BNP ( 2751->1137) CURRENT DIET:CARDIAC, soft easy chew PO DIET RECOMMENDATIONS: JERRY/ texture as tolerated ADDITIONAL RECOMMENDATIONS: 1) Calibrated bedscale wt 2) Rec liberalized JERRY diet for possible improved food acceptance 3) MVI x 1 as supplement 4) Monitor lytes, replete as needed
[2020-05-21 12:00] VITALS: BP 119/71
--- NOTE | 2020-05-21 14:08 | NUR ---
TRANSFER UPDATE PATIENT NEEDS TO BE SEEN BY A SPINAL SURGEON WILL TRANSFER TO [facility] ACCEPTING PHYSICIAN IS DR DAGOBERTO OTTO FAXED CLINICALS TO [facility] T: [phone] F: [phone] DR LANDA HAS ALREADY HAD A MD TO CONVERSATION WITH DR OTTO WE ARE WAITING FOR BED ASSIGNMENT Addendum: 05/21/20 at 1505 by TREY PENALOZA LVN LVN INSURANCE CONTACT [facility] T: [phone] [id number] F: [phone] OR 2005 Addendum: 05/21/20 at 1557 by TREY PENALOZA LVN LVN FAXED NEGATIVE COVID RESULTS TO [facility]
--- NOTE | 2020-05-21 15:06 | NUR ---
CASE MANAGEMENT:REVIEW 05/21/20 SI: ACUTE WI. AFIB W/RVR. ACUTE L1 AND L4 COMPRESSION FRACTURE 97.9 80 18 119/71 94% ON RA IS: LIDOCAINE PATCH QD LISINOPRIL PO QD ELIQUIS PO BID TOPROL XL PO QD FOLATE PO QD CALCITONIN SPRAY QD : TELEMETRY STATUS DCP: FROM HOME PLAN: TRANSFERRING TO [facility]. FAXED CLINICALS WAITING FOR RAPID COVID RESULTS AND BED ASSIGNMENT
[2020-05-21 16:00] VITALS: BP 121/75
--- NOTE | 2020-05-21 17:05 | General Progress Note ---
Subjective ROS Limited/Unobtainable: No Constitutional: Reports: malaise, weakness HEENT: Reports: no symptoms Cardiovascular: Reports: no symptoms Respiratory: Reports: no symptoms Gastrointestinal/Abdominal: Reports: no symptoms Genitourinary: Reports: no symptoms Neurologic/Psychiatric: Reports: no symptoms Endocrine: Reports: no symptoms Hematologic/Lymphatic: Reports: no symptoms Allergies: Coded Allergies: ASPIRIN (Verified Allergy, Unknown, 10/09/17) All Systems: reviewed and negative except above Subjective no new complaints. denies chest pain or sob. stable back pain- mostly when moving. refusing to take any pain meds. stress test noted. Objective Last 24 Hour Vital Signs Date Time Temp Pulse Resp B/P (MAP) Pulse Ox O2 Delivery O2 Flow Rate FiO2 05/21/20 12:00 97.9 80 18 119/71 (87) 94 05/21/20 09:25 97.9 05/21/20 09:00 Room Air 05/21/20 08:55 126/71 05/21/20 08:55 84 126/71 05/21/20 08:00 97.9 84 18 126/71 (89) 93 05/21/20 04:00 97.0 90 18 110/97 (101) 95 05/21/20 00:00 97.5 94 18 114/98 (103) 94 05/20/20 21:00 Room Air 05/20/20 20:00 97.9 97 18 108/75 (86) 94 Intake and Output 05/20/20 05/21/20 19:00 07:00 Intake Total 500 ml 280 ml Balance 500 ml 280 ml Intake Oral 500 ml 280 ml # Voids 2 2 # Bowel Movements 1 Height (Feet): 5 Height (Inches): 3.00 Weight (Pounds): 126 Objective General Appearance: WD/WN, alert EENT: normal ENT inspection Neck: non-tender, normal alignment Cardiovascular: normal peripheral pulses, normal rate, regular rhythm Respiratory/Chest: chest wall non-tender, lungs clear, normal breath sounds, no respiratory distress Abdomen: normal bowel sounds, non tender, soft, no organomegaly Edema: no edema noted Arm (L), no edema noted Arm (R), no edema noted Leg (L), no edema noted Leg (R) Neurologic: furniture shampooer II-XII grossly normal, alert, oriented x 3, responsive Assessment/Plan Problem List: (1) HTN (hypertension) ICD Codes: I10 - Essential (primary) hypertension SNOMED: 66682105 (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 ICD Codes: S22.070K - Wedge compression fracture of T9-T10 vertebra, subsequent encounter for fracture with nonunion SNOMED: 748615682, 586464076 (3) Atrial fibrillation with rapid ventricular response ICD Codes: I48.91 - Unspecified atrial fibrillation SNOMED: 454809491793765 (4) Bradycardia ICD Codes: R00.1 - Bradycardia, unspecified SNOMED: 08919253 (5) NSTEMI (non-ST elevated myocardial infarction) ICD Codes: I21.4 - Non-ST elevation (NSTEMI) myocardial infarction SNOMED: 68195859 Status: stable, progressing Assessment/Plan: stable try topical pain relievers po/iv meds as needed- if pt agrees/needs rate control per cards eliquis for stroke prophylaxis pt/ot dvt/stress ulcer prophylaxis Charles Lo MD May 21, 2020 17:05
[2020-05-21 20:00] VITALS: BP 126/81
--- NOTE | 2020-05-21 20:09 | NUR ---
NURSE HAND-OFF: Important Events on Shift:[Transfer to [facility]] Patient Status: [stable] Diet: [Cardiac soft easy chew] Pending Orders: [] Pending Results/Labs:[] Pending MD notification:[] Latest Vital Signs: Temperature 98.0 , Pulse 88 , B/P 121 /75 , Respiratory Rate 18 , O2 SAT 93 , Room Air, O2 Flow Rate . Vital Sign Comment: [stable] Latest Cota Fall Score: 40 Fall Risk: Medium Risk Safety Measures: Call light Within Reach, Bed Alarm Zone 1, Side Rails Side Rails x2, Bed position Low and Locked. Fall Precautions: Yellow Socks Yellow Gown Door Sign Patient Fall Education Report given to [BOB Chaudhari].
--- NOTE | 2020-05-21 22:01 | NUR ---
NURSES NOTE: Pt in stable condition. 2000 VS WNL. No s/s of distress at time of transfer. Breathing even and unlabored. Belongings list reviewed. 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
--- NOTE | 2020-05-21 22:09 | Cardiology Progress Note ---
Subjective DATE OF SERVICE: May 21, 2020 Less back pain - but says she can't walk due to pain and weakness. MRI 's confirm acute L1 and L4 compr fx Remains with AFib - rates controlled Troponin was elevated, but no peak/trough 2D Echo: EF 45% with mild valve regurgitation. Myoc Perf scan: EF 30% with fixed inferior defect but no reversible ischemia. Objective Last 24 Hour Vital Signs Date Time Temp Pulse Resp B/P (MAP) Pulse Ox O2 Delivery O2 Flow Rate FiO2 05/21/20 20:00 98.3 101 17 126/81 (96) 91 05/21/20 16:00 98.0 88 18 121/75 (90) 93 05/21/20 12:00 97.9 80 18 119/71 (87) 94 05/21/20 09:25 97.9 05/21/20 09:00 Room Air 05/21/20 08:55 126/71 05/21/20 08:55 84 126/71 05/21/20 08:00 97.9 84 18 126/71 (89) 93 05/21/20 04:00 97.0 90 18 110/97 (101) 95 05/21/20 00:00 97.5 94 18 114/98 (103) 94 ROS: unchanged from 05/14/20 HEENT: normal ENT inspection RHYTHM: Afib LUNGS: lungs clear bilaterally CARDIAC: irregularly irregular, rapid rate ABDOMEN: normal bowel sounds, non tender, soft EXTREMITIES: no calf tenderness, No edema Microbiology Date/Time Source Procedure Growth Status 05/21/20 14:30 Nasopharynx SARS-CoV-2 RdRp Gene Assay - Final Complete Assessment/Plan Assessment/Plan Acute lumbar 1 and 4 compression fractures 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 Folic acid def Hypomagnesemia Acute back pain with immobility Ac/chr systolic and diastolic CHF Stable for kyphoplasty from cardovascular standpoint Beta ed for rate control Full anti-coagulation Vitamin suppl ACEi rx titration Transfer to higher level of care for spine surgery Armando Charles MD May 21, 2020 22:09
--- NOTE | 2020-05-22 09:41 | Discharge Summary ---
Discharge Summary Discharge Summary _ DATE OF ADMISSION: 05/14/2020 DATE OF DISCHARGE:05/21/2020 DISCHARGED BY: Dr. Lo REASON FOR ADMISSION: 84 years old female with past medical history of compression fracture to the spine, atrial fibrillation, presented to emergency department complaining of the back pain for one day. She denied any specific trauma or injury. No fever or chills. No chest pain or shortness of breath. No focal weakness. Patient was able to ambulate , but it was painful . Patient was brought from home by paramedics. Upon evaluation patient noted to have atrial fibrillation with rapid ventricular response. Patient received IV Cardizem , and heart rate stabilized. However later heart rate returned to 120 , and additional dose of IV Cardizem was ordered . Patient subsequently started on extended release Cardizem. Chest x-ray revealed no acute process. Borderline cardiomegaly . CT scan of the abdomen and pelvis revealed fixation hardware in the right hip , but no signs of acute disease in the abdomen and pelvis. CT scan of the lumbar spine revealed fracture in the inferior endplate of L4 , possibly representing a recent fracture. Status post prior vertebroplasty at L3. CT scan of the thoracic spine revealed status post vertebroplasty at T10 and T11, no acute compression fracture , no paraspinal soft tissue swelling. Laboratory work-up revealed no leukocytosis, stable hemoglobin , hematocrit and platelet count. Stable electrolytes and renal parameters . Elevated troponin -0.088 Total bili 2.0 ,direct bili 0.4 ,AST 44, ALT 19 Glucose 115 Patient admitted with atrial fibrillation with rapid ventricular response, elevated troponin , possible NSTEMI , and L4 vertebral fracture. CONSULTANTS: front desk worker HOSPITAL COURSE: Patient admitted to monitored floor. Pain management was addressed. Fall precaution maintained. Troponin was followed . heart rate was controlled . Anticoagulation initially was hold. MRI of the lumbar spine revealed acute L4 inferior endplate compression fracture, evident on recent CT scan. Acute or subacute L1 superior endplate compression fracture , less clearly visible on prior CT. Evidence of prior multiple vertebral augmentation procedures. Degenerative changes. MRI of thoracic spine revealed no acute bony trauma. Evidence of prior T10 and T11 compression fracture, status post intervention with vertebral augmentation procedure. Pain management was addressed. Patient was working with physical therapist. Fall precautions maintained. Bowel regimen instituted. Patient continued to have paroxysmal atrial fibrillation with rapid ventricular response. Echocardiogram revealed global left ventricular hypokinesis with left ventricular ejection fraction estimated to be 40 to 45%. Mild left ventricular hypertrophy. Troponin remained in the same range . Myocardial perfusion scan test revealed old fixed infarct , but no reversible ischemia was demonstrated . Ejection fraction estimated to be 30%. Patient was on beta blockage. Rate was controlled, Full anticoagulation provided. Guideline directed medical therapy for CHF provided with beta-blockade and BOOM inhibitor. Volumes were closely monitored. No need for diuresis at this time. Magnesium was replaced Patient started on folate replacement. Heddler cleared patient for transfer for kyphoplasty to higher level of care. Patient was stable for transfer. FINAL DIAGNOSES: Acute lumbar L1 and L4 compression fracture Chronic thoracic compression fracture with prior vertebroplasty s Paroxysmal atrial fibrillation with rapid ventricular response Acute myocardial ischemia Possible NSTEMI Folic acid deficiency Hypomagnesemia Acute back pain Acute on chronic systolic and diastolic congestive heart failure DISCHARGE MEDICATIONS: List of medication was sent to accepting facility DISCHARGE INSTRUCTIONS: Patient was discharged to [facility] to higher level of care for kyphoplasty after cardiac clearance. I have been assigned to dictate discharge summary for this account. I was not involved in the patient's management. Irais Conde NP May 22, 2020 09:41
--- NOTE | 2020-05-22 11:11 | NUR ---
INSURANCE DC SUMMARY FAXED [facility] NCM: [place] T: [phone] EXT [id number] F: [phone] OR 2005 [facility] F: [phone]
== END 2020-05-21 22:05 | disposition short-term general hospital (02) | DRG 542 ==
LOC: EDBD 09:06 → EMR 09:45 → 2E 12:17 → EDBEDREQ 13:57 → 2E 14:40 → 3E 05-20 01:22
DX: M80.88XA Other osteoporosis with current pathological fracture, vertebra(e), initial encounter for fracture (principal); I21.4 Non-ST elevation (NSTEMI) myocardial infarction; I50.43 Acute on chronic combined systolic (congestive) and diastolic (congestive) heart failure; M80.88XD Other osteoporosis with current pathological fracture, vertebra(e), subsequent encounter for fracture with routine healing; Z88.6 Allergy status to analgesic agent; I48.0 Paroxysmal atrial fibrillation; E83.42 Hypomagnesemia; E53.8 Deficiency of other specified B group vitamins; R00.1 Bradycardia, unspecified
CPT/HCPCS: 36415; 71045; 72128; 72131; 72146; 72148; 74176; 78452; 80053; 82248; 82306; 82607; 82746; 83690; 83735; 83880; 84443; 84484; 85025; 85610; 85730; 93005; 93017; 93306; 96361; 96374; 96375; 96376; 99291; J2785; J7030; J8499; U0002